=== PATIENT | male | born 1955 | race Caucasian/White ===

== ENCOUNTER 2017-05-06 16:13 | Inpatient (IN) | payer OTHER, MEDICARE ==
[~2017-05-06] VITALS: Ht 185.4 cm; Wt 133.8 kg
[~2017-05-06 16:13] MED LIST: ALDACTONE100 M1 PO; ALDACTONE50 MG PO; B12-METHYL1000 MCG PO; CEFUROXIME AXE500 MG PO; DILAUDID2 M1 PO; EPIPEN 2-PAK1 MG/ML IM; FAMOTIDINE20 MG PO; FERROUS SULFAT325 M3 PO; FOLIC ACID 1 MG PO; FOLIC ACID 1MG (1 MG PO; HYDROMORPHONE HC2 MG PO; MAGNESIUM OXID400 M1 PO; MYRBETRIQ25 MG PO; NADOLOL20 M1 PO; PREDNISONE 20MG20 MG PO; RIFAXIMIN PO; SPIRONOLACTONE25 MG PO; TRAZODONE50 MG PO; VITAMIN D50000 IU PO; XIFAXAN550 M1 PO; ZOLPIDEM TARTRA10 M1 PO
[2017-05-06] MEDS ORDERED: ESCITALOPRAM OX10 MG PO (16:42)
[2017-05-06] MEDS ORDERED: REQUIP1 M1 PO (16:43)
--- NOTE | 2017-05-06 16:43 | ED GENERAL ADULT ---
History of Present Illness General Chief Complaint: General Adult Stated Complaint: WEAKNESS, HYPOTENSION Source: patient Exam Limitations: no limitations Vital Signs & Intake/Output Vital Signs & Intake/Output Vital Signs Date Time Temp Pulse Resp B/P B/P Pulse O2 O2 Flow FiO2 Mean Ox Delivery Rate 05/06 1702 99.2 05/06 1646 96 Room Air 05/06 1633 99.2 76 18 115/57 96 Room Air Allergies Coded Allergies: MDX - PCN (penicillin) (PCN (PENICILLIN)) (Severe, CHILDHOOD REACTION PER PT 06/01) MDX - Bee Venom (Bee Venom) (LOOKS LIKE A REVERSE GOLF BALL PER PT BUT CAN BREATHE 03/25/15) MDX - Cat Hair Extract (CAT HAIR EXTRACT) (WHEEZE, SNEEZE, WATERY, ITCHY SWOLLEN EYES, RUNNY NOSE 03/25/15) MDX - Heparin (RASH 07/18/14) MDX - Citric Acid (From ANTICOAGULANT CPD) (PER PT MD SAID NO BLOOD THINNERS ) MDX - Dextrose (From ANTICOAGULANT CPD) (PER PT MD SAID NO BLOOD THINNERS ) MDX - Mineral, Phosphate (From ANTICOAGULANT CPD) (PER PT MD SAID NO BLOOD THINNERS 10/31/15) MDX - Phosphate (From ANTICOAGULANT CPD) (PER PT MD SAID NO BLOOD THINNERS 10/31) Reconcile Medications Calcium Carbonate/Vitamin D3 (Calcium 500 + D Tablet) 500 MG-400 TABLET 1 TAB PO DAILY UNKNOWN (Reported) Cefuroxime Axetil (Cefuroxime) 500 MG TABLET 500 MG PO BID ANTIBIOTIC ( Reported) Escitalopram Oxalate 10 MG TABLET 10 MG PO DAILY DEPRESSION (Reported) Ferrous Sulfate 325 MG (65 MG IRON) TABLET 325 MG PO DAILY IRON (Reported) Furosemide 40 MG TABLET 40 MG PO BID EDEMA (Reported) 2 PILLS DAILY, ONE PILL NIGHTLY HYDROMORPHONE HCL (Dilaudid) 2 MG TAB 1 TAB PO Q6H PAIN (Reported) Magnesium Oxide 400 MG TABLET 400 MG PO BID SUPPLEMENT (Reported) Methylcobalamin ([id number]-Rojnwa) 1,000 MCG CAP 1,000 MCG PO DAILY VITAMIN ( Reported) Nadolol 20 MG TABLET 20 MG PO DAILY HTN (Reported) Rifaximin (Xifaxan) 550 MG TAB 1 TAB PO BID LIVER (Reported) Ropinirole HCl (Requip) 1 MG TABLET 1 MG PO NIGHTLY RESTLESS LEG (Reported) Spironolactone (Aldactone) 100 MG TAB 1 TAB PO DAILY SWELLING/FLUID RETENTION (Reported) Zolpidem Tartrate 10 MG TAB 10 MG PO AT BEDTIME SLEEP (Reported) Triage Note: BIBA FROM HOME W/ C/O INCREASED RLE PAIN, SWELLING. SOME ABRAIDED AREAS NOTED. INCREASED GENERALIZED WEAKNESS. LOW BP. LOW GRADE TEMP. Triage Nurses Notes Reviewed? yes Onset: Gradual Duration: day(s): (1) Timing: no prior history Injury Environment: home Severity: moderate Severity Numbers: 7 Modifying Factors: Improves With: immobilization. Worsens With: movement. HPI: Patient is a 61-year-old male with history of hypertension presenting to the emergency department complaining of increasing pain, swelling and redness to the right lower extremity. Patient reports symptoms started late last night. Pain is worse with any type of movement or palpation. No fevers or chills. Positive malaise and weakness. According to the visiting nurse redness and swelling has worsened over the past 24 hours. History of blisters on the lower extremities that have popped, it usually provide nonstick dressing and wound care, nursing reports no prior history of cellulitis like this in the past. Patient denies any chest pain palpitations shortness of breath. No nausea or vomiting. Denies taking anything at home to help with symptoms. Patient did take daily Dilaudid this morning at 8 AM with some relief. Past History Travel History Traveled to [place] past 21 day No Medical History Any Pertinent Medical History? see below for history Neurological: NONE EENT: NONE Cardiovascular: hypertension Respiratory: NONE Gastrointestinal: NONE Hepatic: cirrhosis Renal: NONE Musculoskeletal: NONE Psychiatric: NONE Endocrine: NONE Blood Disorders: NONE Cancer(s): NONE BACTERIOLOGIST SOIL/Reproductive: NONE History of MRSA: No History of VRE: Yes History of CDIFF: No Tetanus Vaccine: 10/06/09 Surgical History Surgical History: non-contributory Psychosocial History Who do you live with Patient/Self Services at Home None What is your primary language Colombian Tobacco Use: Never used Family History Hx Contributory? No Review of Systems Review of Systems Constitutional: Reports: malaise. Comments Review of systems: See HPI, All other systems negative. Constitutional, no chills fever or weight loss HEENT: No visual changes no sore throat no congestion Cardiovascular: No chest pain ,palpitation , orthopnea or ankle swelling Skin, no jaundice Respiratory: No dyspnea cough sputum or hemoptysis GI: No nausea no vomiting : No dysuria No hematuria Muscle skeletal: no back pain, no neck pain, Neurologic: No numbness no confusion NO JAMES Psych: No stress anxiety or depression,. Heme/endocrine: No bruising no bleeding no polyuria or polydipsia Immunology: No splenectomy or history of AIDS Physical Exam Physical Exam General Appearance: well developed/nourished, no apparent distress, alert, awake , comfortable, obese Comments: Well-developed well-nourished person in no acute distress HEENT: Pupils equally round and reactive to light and accommodation. Nose is atraumatic. External auditory canal and Tympanic membranes clear. Pharynx normal. No swelling or edema. Neck: Normal inspection Cardiovascular: Regular rate and rhythms no murmurs rubs or gallops, normal JVP Respiratory: Chest nontender. No respiratory distress.breath sounds clear to auscultation bilaterally Abdomen: Soft, obese, nontender nondistended, no appreciable organomegaly. Normal bowel sounds. No ascites, no rebound or guarding. Extremity: Nonpitting edema noted in the lower EXTREMITIES bilaterally, right greater than left. PEDAL pulses are 2+ bilaterally. Able to straight leg raise lower extremity is bilaterally. Nontender to palpation over the right patella. No pain to palpation Neuro: Alert oriented x3, motor sensory normaL Skin:MODERATE ERYTHEMA EXTENDING FROM THE DISTAL LOWER EXT JUST BELOW RIGHT PATELLA. VERY WARM TO PALPATION. OPEN BLISTER ON MID ASPECT OF RIGHT GIBBS APPROX 8-10 CM IN DIAMETER, 2 MORE OPEN BLISTERS APPROX 3 CM IN SIZ JUST BELOW RIGHT PATELLA. Psych: Mood and affect is normal, memory and judgment is normal. Core Measures ACS in differential dx? No CVA/TIA Diagnosis: No Severe Sepsis Present: No Septic Shock Present: No Progress Differential Diagnoses I considered the following diagnoses in my evaluation of the patient: Cellulitis, chronic wounds, SEPSIS,ELECTROLYTE ABNORMALITY, VENOUS STASIS Plan of Care: Orders Procedure Date/time Status Admit to inpatient 05/06 1944 Active Patient Data 05/06 1845 Active BLOOD CULTURE 05/06 1646 Active TROPONIN LEVEL 05/06 1624 Complete COMPREHENSIVE METABOLIC PANEL 05/06 1624 Complete CBC WITHOUT DIFFERENTIAL 05/06 162 Complete EKG 05/06 1624 Active Laboratory Tests 05/06/17 1650: Anion Gap 10, Estimated GFR 51 L, BUN/Creatinine Ratio 25.7 H, Glucose 80, Calcium 9.9, Total Bilirubin 2.4 H, AST 28, ALT 25, Alkaline Phosphatase 61, Troponin I < 0.01, Total Protein 6.1 L, Albumin 3.1 L, Globulin 3.0, Albumin/ Globulin Ratio 1.0 L, CBC w Diff NO MAN DIFF REQ, RBC 3.41 L, MCV 98.2 H, MCH 33.8 H, RDW 14.5, MPV 7.6, Gran % 68.3, Lymphocytes % 21.2, Monocytes % 9.3, Eosinophils % 0.8, Basophils % 0.4, Absolute Granulocytes 4.9, Absolute Lymphocytes 1.5, Absolute Monocytes 0.7 H, Absolute Eosinophils 0.1, Absolute Basophils 0, PUBS MCHC 34.4 Microbiology 05/06 1710 BLOOD: Blood Culture - RECD 05/06 1645 BLOOD: Blood Culture - RECD Diagnostic Imaging: Viewed by Me: Ultrasound. Discussed w/RAD: Ultrasound. Radiology Impression: PATIENT: KIANNA RAMIREZ PRESENT AGE: 61 PATIENT ACCOUNT NO: [id number] : 53 LOCATION: [facility] ORDERING PHYSICIAN: PERI DARLING SERVICE DATE: 05/06/17 EXAM TYPE: US - US-LIMITED ABDOMEN EXAMINATION: US ABDOMEN LIMITED CLINICAL INFORMATION: Elevated bilirubin. COMPARISON: Ultrasound abdomen 05/17/2014. CT of chest abdomen pelvis 02/11/2013. TECHNIQUE: Real-time imaging of the right upper quadrant abdominal viscera. Color Doppler exam. FINDINGS: Limited by body habitus and bowel gas. PANCREAS: Obscured by bowel gas LIVER: Not well visualized due to bowel gas. No focal liver lesion or intrahepatic bile duct dilatation. Patient has history of cirrhosis on prior studies. This is not well delineated with ultrasound today. GALLBLADDER: Not visualized COMMON BILE DUCT: Normal in caliber measuring 0.3 cm in diameter. RIGHT KIDNEY: Normal. No hydronephrosis. No renal calculi or focal parenchymal lesions. The kidney measures 10.6 cm in maximum dimension. FREE FLUID: None. IMPRESSION: Limited by body habitus and bowel gas. Gallbladder not visualized. No bile duct dilatation. DICTATED BY: NEVIN ANDINO MD DATE/TIME DICTATED:05/06/171835 CLOTH COVERER :NUVIA DATE/TIME TRANSCRIBED:05/06/171835 CONFIDENTIAL, DO NOT COPY WITHOUT APPROPRIATE AUTHORIZATION. <Electronically signed in Other Vendor System> , PATIENT: KIANNA RAMIREZ PRESENT AGE: 61 PATIENT ACCOUNT NO: [id number] : 53 LOCATION: [facility] ORDERING PHYSICIAN: PERI DARLING SERVICE DATE: 05/06/17 EXAM TYPE: US - US-DUPLEX VENOUS EXTREM UNI EXAMINATION: US TRIPLEX LOWER EXTREMITY, RIGHT CLINICAL INFORMATION: Right lower extremity edema and pain. COMPARISON: None TECHNIQUE: Color-flow triplex imaging with spectral analysis and compression Doppler were performed on the lower extremity. FINDINGS: Respiratory variation, normal compression and augmented flow are noted throughout the left lower extremity. The visualized common femoral vein, superficial femoral vein, profunda femoral vein, popliteal vein and midcalf peroneal and posterior tibial venous segments show no evidence of deep venous thrombosis. There is no Julien's cyst. IMPRESSION: Normal triplex scan without evidence of deep venous thrombosis involving the lower extremity. DICTATED BY: JENI NEFF MD DATE/TIME DICTATED :05/06/171833 CLOTH COVERER:NUVIA DATE/TIME TRANSCRIBED:05/06/171833 CONFIDENTIAL, DO NOT COPY WITHOUT APPROPRIATE AUTHORIZATION. < Electronically signed in Other Vendor System> SIGNED BY: JENI NEFF MD 05/06/171837 Initial ED EKG: NSR (70 BPM) Comments: Patient afebrile arrival, clearly has right lower leg cellulitis, warm to palpation. Patient started on IV antibiotics, blood cultures were ordered. Patient informed of all laboratory results. Imaging result is negative for DVT. No ductal dilation noted on ultrasound of the abdomen despite elevated bilirubin. We will trend with repeat labs. Patient will be admitted for cellulitis. Departure Departure Time of Disposition: 1842 Disposition: STILL A PATIENT Condition: Stable Clinical Impression Primary Impression: Cellulitis Qualifiers: Site of cellulitis: extremity Site of cellulitis of extremity: lower extremity Laterality: right Qualified Code: L03.115 - Cellulitis of right lower limb Referrals: BRINDA ROD MD (PCP/Family) Departure Forms: Customer Survey General Discharge Information Admission Note Spoke With: BRINDA ROD MD Documentation of Exam: Documentation of any treatments & extenuating circumstances including Concerns Regarding Discharge (functional status, medication knowledge or non-compliance, living conditions, etc.) that warrant an admission rather than observation: PT REQUIRING IV ABX, IV FLUIDS, PENDING US RESULTS, BLOOD CULTURES TO RETURN, WOUND CONSULT. D/C AT THIS TIME WOULD BE MEDICALLY HARMFUL. Critical Care Note Critical Care Note Critical Care Time: non-applicable
[2017-05-06] MEDS ORDERED: FUROSEMIDE40 M1 PO (16:44)
[2017-05-06] MEDS ORDERED: CALCIUM 500 +1 EAC5 PO (16:45)
[2017-05-06 16:59] LABS: ABSOLUTE BASOPHIL COUNT 0 /CUMM (0.0-0.2); ABSOLUTE EOSINOPHIL COUNT 0.1 /CUMM (0.0-0.7); ABSOLUTE GRANULOCYTE CT 4.9 /CUMM (1.4-6.5); ABSOLUTE LYMPH COUNT 1.5 /CUMM (1.2-3.4); ABSOLUTE MONOCYTE COUNT 0.7 /CUMM (0.10-0.60); BASOPHIL % 0.4 % (0.0-2.0); EOSINOPHIL % 0.8 % (0-5); GRANULOCYTE % 68.3 % (42.2-75.2); HEMATOCRIT 33.5 % (42-52); MEAN CORPUSCULAR HGB 33.8 PG (27.0-31.0); MEAN CORPUSCULAR HGB CONC 34.4 G/DL (33.0-37.0); MEAN CORPUSCULAR VOLUME 98.2 FL (80.0-94.0); MEAN PLATELET VOLUME 7.6 FL (7.4-10.4); PLATELET COUNT 124 /CUMM (130-400); RBC DISTRIBUTION WIDTH 14.5 % (11.5-14.5); RED BLOOD CELL CT 3.41 /CUMM (4.70-6.10); WHITE BLOOD CELL COUNT 7.2 /CUMM (4.8-10.8)
--- NOTE | 2017-05-06 18:38 | ULTRASOUND REPORT ---
EXAMINATION: US TRIPLEX LOWER EXTREMITY, RIGHT CLINICAL INFORMATION: Right lower extremity edema and pain. COMPARISON: None TECHNIQUE: Color-flow triplex imaging with spectral analysis and compression Doppler were performed on the lower extremity. FINDINGS: Respiratory variation, normal compression and augmented flow are noted throughout the left lower extremity. The visualized common femoral vein, superficial femoral vein, profunda femoral vein, popliteal vein and midcalf peroneal and posterior tibial venous segments show no evidence of deep venous thrombosis. There is no Julien's cyst. IMPRESSION: Normal triplex scan without evidence of deep venous thrombosis involving the lower extremity.
--- NOTE | 2017-05-06 18:44 | ULTRASOUND REPORT ---
EXAMINATION: US ABDOMEN LIMITED CLINICAL INFORMATION: Elevated bilirubin. COMPARISON: Ultrasound abdomen 05/17/2014. CT of chest abdomen pelvis 02/11/2013. TECHNIQUE: Real-time imaging of the right upper quadrant abdominal viscera. Color Doppler exam. FINDINGS: Limited by body habitus and bowel gas. PANCREAS: Obscured by bowel gas LIVER: Not well visualized due to bowel gas. No focal liver lesion or intrahepatic bile duct dilatation. Patient has history of cirrhosis on prior studies. This is not well delineated with ultrasound today. GALLBLADDER: Not visualized COMMON BILE DUCT: Normal in caliber measuring 0.3 cm in diameter. RIGHT KIDNEY: Normal. No hydronephrosis. No renal calculi or focal parenchymal lesions. The kidney measures 10.6 cm in maximum dimension. FREE FLUID: None. IMPRESSION: Limited by body habitus and bowel gas. Gallbladder not visualized. No bile duct dilatation.
--- NOTE | 2017-05-06 20:01 | History & Physical ---
JIM BLANKENSHIP,JENNA 05/06/17 2000: General Information and HPI MD Statement: I have seen and personally examined KIANNA RAMIREZ and documented this H&P. The patient is a 61 year old M who presented with a patient stated chief complaint of [cellulitis]. 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 coli infections. He presented to the ED, at the recommendation of his visiting nurse, due to worsening cellulitis of his R lower leg in the presence of a large ulcer. For the past month he reports worsening swelling and seepage from the R lower leg. He claims that has had chronic issues of poor circulations and blisters leading to small wounds on the R leg since 2007 when he had an e. coli infection of his R knee. He has had visiting nurses come to his home for the past 2-3 weeks for wound care, and within the last week he noted that several smaller blisters coalesced, and ruptured on his anterior lower leg. The nurses had been dressing the wound with xeroform macrina until yesterday when they switched to silver containing dressings. This wound has been draining fluid and blood for one week, with spreading of surrounding redness. The pt reports that his leg is normally discolored due to poor circulation, but the redness and warmth of the skin is new. The redness, and drainage has become significantly worse within the last 24 hours which prompted the nurses to recommend he come to the ED. The pt reports worsening pain in the R leg, with a minimum of 5/10 that goes to 10/10 intermitently. The pain is reduced, but not fully allevieted by immobilization, and elevation, and it is exacerbated by movement or palpation. The pt took dilaudid this morning for pain, it helped but did not relieve the pain. The pt reports having a headache, and malaise for the past few days. He denies fever, chills, chest apain, changes in vision, or SOB. Allergies/Medications Allergies: Coded Allergies: bee venom protein (honey bee) (Severe, SEVERE HIVES 05/06/17) heparin (Severe, TONGUE SWELLED 05/06/17) cat dander (Intermediate, ITCH, WHEEZE, SNEEZE, SWOLLEN EYES, RUNNY NOSE ) Penicillins (CHILDHOOD REACTION PER PT 05/06/17) Uncoded Allergies: BLOOD THINNERS (PER PT MD ROD SAID NO BLOOD THINNERS 05/06/17) Compliance With Home Meds: GOOD Past History Travel History Traveled to [place] past 21 day No Medical History Neurological: NONE EENT: NONE Cardiovascular: hypertension Respiratory: NONE Gastrointestinal: NONE Hepatic: cirrhosis Renal: NONE Musculoskeletal: NONE Psychiatric: NONE Endocrine: NONE Blood Disorders: NONE Cancer(s): NONE COMMERCIAL ANALYST/Reproductive: NONE History of MRSA: No History of VRE: Yes History of CDIFF: No Tetanus Vaccine: 10/06/09 Surgical History Surgical History: non-contributory Past Family/Social History Family History Relations & Conditions if any Relation not specified for: *No pertinent family history Psychosocial History Where do you live? Home Services at Home: None, visiting nursing for wound care past 3 weeks Primary Language: Mauritanian Smoking Status: Never Smoked ETOH Use: denies use, gave up alcohol 2 years ago Illicit Drug Use: denies illicit drug use Living Will? yes Functional Ability ADLs Independent: dressing, eating, toileting, bathing. Ambulation: cane, walker IADLs Independent: shopping, housework, finances, food prep, telephone, transportation , medication admin. Review of Systems Review of Systems Constitutional: Reports: malaise. Denies: chills, diaphoresis, fever, weakness, unexplained weight loss. EENTM: Denies: blurred vision, double vision, visual changes, eye pain, nasal congestion, throat pain. Cardiovascular: Reports: peripheral edema. Denies: chest pain, palpitations. Respiratory: Denies: cough, short of breath, wheezing. GI: Denies: bloating, constipation, diarrhea, bloody stool. Genitourinary: Reports: frequency (frequency due to lasix), nocturia (frequency due to lasix). Denies: dysuria. Musculoskeletal: Denies: back pain. Skin: Reports: erythema, lesions. Neurological/Psychological: Reports: headache, numbness. Denies: confusion, tingling. Hematologic/Endocrine: Reports: polyuria (high dose lasix). Exam & Diagnostic Data Last 24 Hrs of Vital Signs/I&O Vital Signs Date Time Temp Pulse Resp B/P B/P Pulse O2 O2 Flow FiO2 Mean Ox Delivery Rate 05/069 98.1 63 20 130/76 99 05/06 2100 97.5 05/06 2058 97.5 63 20 133/67 99 Room Air 05/06 2053 Room Air 05/06 1702 99.2 05/06 1646 96 Room Air 05/06 1633 99.2 76 18 115/57 96 Room Air Physical Exam General Appearance Alert, Oriented X3, Cooperative, Mild Distress, Moderate Distress (intermitent spikes in pain) Skin 2 ulcers with surrounding erythema on the R leg. See extremities for description Skin Temp/Moisture Exam: Warm/Dry Sepsis Skin Exam (color): Normal for Ethnicity HEENT Atraumatic, PERRLA, EOMI, Mucous Membr. moist/pink Neck Supple, No JVD, +2 Carotid Pulse wo Bruit, No LAD Lymphatic Cervical nl Cardiovascular Regular Rate, Normal S1, Normal S2, systolic ejection murmor 2/6 Lungs Clear to Auscultation, Normal Air Movement Abdomen Normal Bowel Sounds, Soft, obese, TTP in the RUQ, hx of cirrhosis Neurological Normal Speech, Strength at 5/5 X4 Ext, Cranial Nerves 3-12 NL, complete numbness of the R anterior lower leg distal to the knee. Posterior aspect has diminished sensation about 10-15 cm below the R knee. Could still feel pain in the area of the wound 10-15 cm below the knee Extremities No Clubbing, No Cyanosis, swelling of the R leg, 2x2 cm ulcer over the R patella, draining serous fluid, no surrounding erythema, 11x7 cm ulcer on the lower leg, draining serous fluid with some granulation tissue present around the boarder. Large area of erythema surrounding the ulcer extinding distally to the ankle and proximally to below the knee. Area is warm. , hyperpigmentated skin on the lower extremities b/l on the shins. pt claims this is due to poor circulation Vascular dorsail pedis pulse weak on the R, but present, normal capillary refill Sepsis Peripheral Pulse Location: Radial Sepsis Peripheral Pulse Exam: Normal Sepsis Cap Refill Exam: <2 Sec Diagnostic Data Other Results US TRIPLEX LOWER EXTREMITY, RIGHT IMPRESSION: Normal triplex scan without evidence of deep venous thrombosis involving the lower extremity. There is no Julien's cyst. US ABDOMEN LIMITED IMPRESSION: Limited by body habitus and bowel gas. Gallbladder not visualized. No bile duct dilatation. 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 coli infections. He presented to the ED, due to worsening cellulitis of his R lower leg in the presence of a large ulcer. He claims that has had chronic issues of poor circulations and blisters leading to small wounds on the R leg since 2007 when he had an e. coli infection of his R knee. Within the last week he noted that several smaller blisters coalesced, and ruptured on his anterior lower leg. The pain and erythema has significantly increased in the past 24 hours. The pt recieved IV clindamycin in the ED #R lower extremity cellulitis US has ruled out DVT in R leg - admit to gen med - c/w IV clindamycin (pt alleric to pcn) - f/u cultures for guidance with abx - elevate R leg - wound care consult to be placed in AM - Keep pain well controlled, currenlty Dilaudid PRN #Acute Kidney injury, possibly due to dehydration Cr:1.4, pt claims that he had has not drank much water in the past 24 hours, is on Lasix BID at home. Pt reports urinary frequency. - IVF rehydration - F/U UA and urine electrolytes - hold home lasix and spironolactone - avoid nephrotoxic drugs #history of htn - c/w Metoprolol. (converted from home medication Nadolol) - lasix and spironolactone being held due to SRINIVAS, monitor BP - Heart healthy diet #DVT prophylaxis pt has allergy to heparin. due to infection and ulcer on the RLE cannot use B/L ALPs. US showed no DVT in RLE - ALP on L leg only #Code status - Full Code As Ranked By This Provider Problem List: 1. Cellulitis Qualifiers Site of cellulitis: extremity Site of cellulitis of extremity: lower extremity Laterality: right Qualified Code: L03.115 - Cellulitis of right lower limb 2. Dehydration Core Measures/Miscellaneous Acute Coronary Syndrome ACS Diagnosis: No Cerebrovascular Accident CVA/TIA Diagnosis: No Congestive Heart Failure CHF Diagnosis: No VTE (View Protocol) VTE Risk Factors: Age > 40, Obesity No [facility] VTE prophylaxis d/t: LE Injury, current No VTE Pharm Prophylaxis d/t: Allergy exists VTE Diagnosis: No VTE Type: NONE VTE Confirmed by (Test): NONE Sepsis (View Protocol) Severe Sepsis Present: No Septic Shock Septic Shock Present: No Miscellaneous Documentation Attending Case Discussed With: BRINDA ROD MD Primary Care Physician: BRINDA ROD MD Level of Patient Care: General Medicine KUNAL HERRERA MD 05/06/17 0994: General Information and HPI Allergies/Medications Home Med list Calcium Carbonate/Vitamin D3 (Calcium 500 + D Tablet) 500 MG-400 TABLET 1 TAB PO DAILY UNKNOWN (Reported) Escitalopram Oxalate 10 MG TABLET 10 MG PO DAILY DEPRESSION (Reported) Ferrous Sulfate 325 MG (65 MG IRON) TABLET 1 TAB PO DAILY SUPPLEMENT ( Reported) Furosemide 40 MG TABLET 40 MG PO BID EDEMA (Reported) 2 PILLS DAILY, ONE PILL NIGHTLY Hydromorphone HCl (Dilaudid) 2 MG TABLET 1 TAB PO Q6PRN PRN SEVERE PAIN ( Reported) Magnesium Oxide 400 MG TABLET 1 TAB PO BID SUPPLEMENT (Reported) Methylcobalamin (I70-Ucuwrt) 1,000 MCG CAP 1,000 MCG PO DAILY VITAMIN ( Reported) Nadolol 20 MG TABLET 1 TAB PO DAILY HTN (Reported) Rifaximin (Xifaxan) 550 MG TABLET 1 TAB PO BID GI (Reported) Ropinirole HCl (Requip) 1 MG TABLET 1 MG PO NIGHTLY RESTLESS LEG (Reported) Spironolactone (Aldactone) 100 MG TABLET 1 TAB PO DAILY HTN, CIRRHOSIS ( Reported) Zolpidem Tartrate 10 MG TABLET 1 TAB PO QPMP mental health (Reported) Core Measures/Miscellaneous Acute Coronary Syndrome ACS Diagnosis: No Cerebrovascular Accident CVA/TIA Diagnosis: No Congestive Heart Failure CHF Diagnosis: No VTE (View Protocol) VTE Risk Factors: Age > 40, Obesity [facility] prophylaxis d/t: LE Injury, current No VTE Pharm Prophylaxis d/t: Allergy exists VTE Diagnosis: No VTE Type: NONE VTE Confirmed by (Test): NONE Comment: pt is to go for alps only LLE Sepsis (View Protocol) Severe Sepsis Present: No Septic Shock Septic Shock Present: No Miscellaneous Documentation Attending Case Discussed With: BRINDA ROD MD Primary Care Physician: BRINDA ROD MD Patient sees these Specialists Wound care Level of Patient Care: General Medicine Resident Review Statement Resident Statement: examined this patient, discussed with project intern, agreed with project intern, discussed with family, reviewed EMR data (avail), discussed with nursing , reviewed images Other Findings: 61-year-old male with past medical history of hypertension, enterococcus infective endocarditis status post Aortic valve (bovine) replacement, 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 His right lower extremity started swelling since one month, was having some "seepage", and blisters that were "bloody or clear", for which he was being treated at home with a visiting nurse and antibiotic, but last week he had a Dejesus blister over his right leg that ruptured, leaving a big ulcer, which made him come to the emergency department. He denies any fever , chills, chest pain, shortness of breath, sick contacts, long travel history, history of cancer, trauma. Of note, he has a documented allergy to heparin. In the emergency department: His blood pressure was slightly on the lower side with 115/57, but rest of his vitals were stable. The patient was in mild distress due to pain, and physical examination revealed one large ulceration around 11 cm x 7 cm over lower part of right leg, and to open blisters around 3 cm in diameter just below right knee. He also has marked erythema over his right lower extremity. Marked sensory deficit below knee mostly over anterior leg and foot b/l. Distal pulses were weak, but DIRECT SERVICE PROFESSIONAL<2 sec. Cardiac murmur heard, decreased breath sounds over bilateral lung shahid. Patient had received 1 dose of IV clindamycin in the ED. Patient is currently being admitted in the general floor for management of following issues: # Right lower extremity cellulitis Clinical examination is very obvious for right lower extremity cellulitis. Doppler ultrasound has ruled out possibility of DVT as well as ruptured Julien's cyst (he does not have any cyst). * Continue with IV clindamycin at this time, as the patient is allergic to penicillin * Follow-up blood cultures and adjust antibiotics accordingly * Keep right lower extremity elevated * Call wound care consultation in AM * Adequate pain management. Of note, patient takes Dilaudid at home. # Acute kidney injury Patient's baseline creatinine seems to be 1.0 which currently is 1.4, diagnostic of SRINIVAS. Cause of HPI is not clear at this point, one of which could be dehydration. Of note patient takes Lasix twice daily, the dose of which was recently increased to 60 mg 2 times a day. * IV fluid running at 100 mL per hour * Urinalysis and urine lites have been ordered. Need to follow-up on that * Lasix and spironolactone has been held, given his acute kidney injury * Will avoid other nephrotoxic drugs * Patient doesn't seem to have any obstruction #Hypertension Patient's home medication of Nadolol 20mg has been substituted with metoprolol 25 mg twice a day. Of note, spironolactone and Lasix is on hold given his renal condition. #Continuing rest of his home meds, except for Zolpidem, which he does not take currently. # DVT prophylaxis issue: Of note, DVT prophylaxis has been ordered as mechanical only, but the patient has open wound on his right lower extremity. DVT of bilateral lower extremities has been ruled out by Doppler study though. The patient is allergic to heparin so chemical prophylaxis is not an option currently. Also, patient has acute kidney injury making Lovenox a bad choice. #Diet: Heart healthy #Code status: Full code
[2017-05-06 22:09] VITALS: BP 130/76
[2017-05-07 07:02] VITALS: BP 122/60
--- NOTE | 2017-05-07 07:13 | Admission Certification ---
Admission Certification Certification Statement - As attending physician, I certify that at the time of - admission, based on clinical presentation, severity of - symptoms, need for further diagnostic testing and - therapeutic interventions, and risk of adverse outcomes - without in-hospital treatment, in my clinical assessment, - this patient requires an acute hospital stay for a minimum - of two nights or longer. I have also considered psychsocial - factors such as support system, advanced age, financial - issues, cognitive issues, and failed out-patient treatments, - past re-admission history, safety of patient, and lack of - compliance as applicable. Specific rationale supporting this admission is: Admission for cellulitis of the right leg which is progressively getting worse not responding to oral antibiotics admitted for IV antibiotics.
--- NOTE | 2017-05-07 07:20 | PN- Att Addend ---
Attending Addendum Attending Brief Note Attending admitting note. 61-year-old gentleman well-known to me for many years admitted for chronic swelling and pain with evidence of infection in the right lower extremity. Currently being treated by wound nurse with local care and oral antibiotics and not responding. The wound is progressively getting worse and decrease with a decreased amount of pain. He has no fever no chills. Is a history of cirrhosis of the liver with chronic pancytopenia status post aortic valve replacement for and enterococcal endocarditis history of some hematoma. Status post bilateral total knee replacements Intake & Output 05/07 0800 05/07 0000 05/06 1600 Intake Total 360 320 Output Total 600 Balance -240 320 Intake, IV 200 Intake, Oral 360 120 Number 1 Bowel Movements Output, Urine 600 Patient 295 lb Weight Weight Standing Scale Measurement Method Current Medications Sig/Clifford Start time Last Medication Dose Route Stop Time Status Admin Acetaminophen 650 MG Q6P PRN 05/06 2145 AC PO Acetaminophen 1,000 MG ONCE ONE 05/06 170 DC 05/06 N/A 1 UNIT IV 05/06 1714 1702 Acetaminophen/ 1 TAB Q6P PRN 05/06 2145 AC Hydrocodone Bitart PO Calcium/Vitamin D 500 MG DAILY 05/06 2230 AC 05/06 PO 233 Clindamycin 600 MG IQ8 05/07 0000 AC 05/07 Dextrose/Water 50 ML IV 0043 Clindamycin 600 MG ONCE ONE 05/06 170 DC 05/06 Dextrose/Water 50 ML IV 05/06 1729 1719 Cyanocobalamin 1,000 MCG DAILY 05/06 2230 AC 05/06 PO 233 Escitalopram Oxalate 10 MG DAILY 05/06 2230 AC 05/06 PO 233 Ferrous Sulfate 325 MG DAILY 05/07 1000 AC PO Heparin Sodium 5,000 UNIT Q8 05/06 223 DC (Porcine) SC Hydromorphone HCl 0.5 MG Q4 PRN 05/07 0111 AC IV Hydromorphone HCl 0.5 MG Q4 05/06 2200 DC 05/06 IV 215 Hydromorphone HCl 0 .STK-MED ONE 05/06 2157 DC .ROUTE Magnesium Oxide 400 MG BID 05/06 2200 AC 05/06 PO 233 Metoprolol Tartrate 25 MG BID 05/06 2230 AC 05/06 PO 233 Rifaximin 550 MG BID 05/06 2230 AC 05/06 PO 2337 Ropinirole HCl 1 MG 05/06 AC 05/06 PO 2337 Sodium Chloride 1,000 ML .Q10H 05/06 2145 AC 05/07 IV 05/07 1744 0707 Laboratory Tests 05/06 05/06 05/06 2335 2335 2250 Chemistry Ammonia (9 - 30 umol/L) 27 Urines Urinalysis LIGHT H Urine Color (YEL,AMB,STR) YEL Urine Clarity (CLEAR) HAZY H Urine pH (5.0 - 8.0) 7.0 Ur Specific [place] (1.001 - 1.035) 1.010 Urine Protein (NEG,<30 MG/DL) NEG Urine Ketones (NEG) NEG Urine Nitrite (NEG) POS H Urine Bilirubin (NEG) NEG Urine Urobilinogen (0.1 - 1.0 EU/dl) 2.0 H Ur Leukocyte Esterase (NEG) MOD H Ur Microscopic SEDIMENT EXAMINED Urine RBC (0 - 5 /HPF) RARE Urine WBC (0 - 2 /HPF) 15-25 H Ur Epithelial Cells (NONE,FEW) RARE Urine Bacteria (NEG/NONE) MANY H Urine Hemoglobin (NEG) TRACE-INTACT H Ur Random Creatinine (mg/dL) 59.3 Ur Random Sodium (30 - 90 mmol/L) 107 H Ur Random Potassium (mmol/L) 16.6 Fraction Sodium Excret (<1% %) 1.9 H Urine Glucose (N MG/DL) NEG 05/06 1650 Chemistry Sodium (137 - 145 mmol/L) 133 L Potassium (3.5 - 5.1 mmol/L) 4.5 Chloride (98 - 107 mmol/L) 102 Carbon Dioxide (22 - 30 mmol/L) 21 L Anion Gap (5 - 16) 10 BUN (9 - 20 mg/dL) 36 H Creatinine (0.7 - 1.2 mg/dL) 1.4 H Estimated GFR (>60 ml/min) 51 L BUN/Creatinine Ratio (7 - 25 %) 25.7 H Glucose (65 - 99 mg/dL) 80 Calcium (8.4 - 10.2 mg/dL) 9.9 Total Bilirubin (0.2 - 1.3 mg/dL) 2.4 H AST (17 - 59 U/L) 28 ALT (21 - 72 U/L) 25 Alkaline Phosphatase (< 127 U/L) 61 Troponin I (<0.11 ng/ml) < 0.01 Total Protein (6.3 - 8.2 g/dL) 6.1 L Albumin (3.5 - 5.0 g/dL) 3.1 L Globulin (1.9 - 4.2 gm/dL) 3.0 Albumin/Globulin Ratio (1.1 - 2.2 %) 1.0 L Hematology CBC w Diff NO MAN DIFF REQ WBC (4.8 - 10.8 /CUMM) 7.2 RBC (4.70 - 6.10 /CUMM) 3.41 L Hgb (14.0 - 18.0 G/DL) 11.5 L Hct (42 - 52 %) 33.5 L MCV (80.0 - 94.0 FL) 98.2 H MCH (27.0 - 31.0 PG) 33.8 H RDW (11.5 - 14.5 %) 14.5 Plt Count (130 - 400 /CUMM) 124 L MPV (7.4 - 10.4 FL) 7.6 Gran % (42.2 - 75.2 %) 68.3 Lymphocytes % (20.5 - 51.1 %) 21.2 Monocytes % (1.7 - 9.3 %) 9.3 Eosinophils % (0 - 5 %) 0.8 Basophils % (0.0 - 2.0 %) 0.4 Absolute Granulocytes (1.4 - 6.5 /CUMM) 4.9 Absolute Lymphocytes (1.2 - 3.4 /CUMM) 1.5 Absolute Monocytes (0.10 - 0.60 /CUMM) 0.7 H Absolute Eosinophils (0.0 - 0.7 /CUMM) 0.1 Absolute Basophils (0.0 - 0.2 /CUMM) 0 PUBS MCHC (33.0 - 37.0 G/DL) 34.4 Microbiology Date/Time Procedure - Status Source Growth 05/06 2335 Urine Culture - RECD URINE ROUT 05/06 171 Blood Culture - RECD BLOOD 05/06 1645 Blood Culture - RECD BLOOD Vital Signs Date Time Temp Pulse Resp B/P B/P Pulse O2 O2 Flow FiO2 Mean Ox Delivery Rate 05/07 07 98.7 64 18 122/60 95 05/06 2338 89 140/76 05/06 2209 98.1 63 20 130/76 99 07/20 2100 97.5 05/06 2058 97.5 63 20 133/67 99 Room Air 05/06 2053 Room Air 05/06 1702 99.2 05/06 1646 96 Room Air 05/06 1633 99.2 76 18 115/57 96 Room Air Intake & Output 05/07 0800 05/07 0000 05/06 1600 Intake Total 360 320 Output Total 600 Balance -240 320 Intake, IV 200 Intake, Oral 360 120 Number 1 Bowel Movements Output, Urine 600 Patient 295 lb Weight Weight Standing Scale Measurement Method On examination patient is awake alert oriented 3 comfortable lying in bed. Neck is supple JVD is not raised mucous membrane is moist S1-S2 is normal Lungs shows diminished breath sound both bases abdomen is soft globular nontender bowel sounds are present Extremities shows bilateral peripheral neuropathy. Ulcers 2 ulcers on the right lower extremity with surrounding erythema with edema and some serous drainage. One of the ulcers is 2 x 2 centimeters over the right patella 1 is 11 x 7 cm over the medial aspect of the lower leg. Pedal pulses 2+ bilateral Assessment #1 is cellulitis of the right lower extremities ultrasound was done which was negative patient was started on IV clindamycin as she is allergic to penicillin will obtain blood cultures and also get an infectious disease consult and also wound consult. #2 acute kidney injury is most likely secondary to dehydration as patient is on Lasix will hold off the Lasix for the time being keep the leg elevated. Right leg with compression dressings. Continue blood medication for hypertension also continue with the continue his spironolactone. Due to prophylaxis
--- NOTE | 2017-05-07 08:23 | PN- Housestaff ---
Subjective Follow-up For: RLE Cellulitis SRINIVAS Subjective: I saw and examined the patient today. Pt states that he has had worsening of his right leg over the past few days. Stated he had severe pain yesterday which prompted his VNA to come assess his leg and pt was sent over to the ED. Today, pt states he continues to have pain at the site of the superficial ulcer. Pt states he also has a sharp shooting pain in his hip that comes and goes. Pt denies fever/chills, n/v/d/c, abdominal pain, SOB/chest pain/palpitations, dysuria/hematuria/frequency/urgency. Pt states he has had muscle and joint pain over the past few days. Pt is worried about his knee replacement. States he has had multiple knee replacements for his left knee due to infection. His last knee replacement was in 2015. Pt had no acute events overnight. Review of Systems Constitutional: Denies: see HPI. Cardiovascular: Denies: see HPI. Respiratory: Denies: see HPI. Gastrointestinal: Denies: see HPI. Genitourinary: Denies: see HPI. Musculoskeletal: Reports: see HPI. Objective Last 24 Hrs of Vital Signs/I&O Vital Signs Date Time Temp Pulse Resp B/P B/P Pulse O2 O2 Flow FiO2 Mean Ox Delivery Rate 05/07 1417 98.4 70 18 122/70 97 05/07 0958 88 136/80 05/07 0702 98.7 64 18 122/60 95 05/06 2338 89 140/76 05/06 2209 98.1 63 20 130/76 99 05/06 2100 97.5 05/06 2058 97.5 63 20 133/67 99 Room Air 05/06 2053 Room Air Intake & Output 05/07 1600 05/07 0800 05/07 0000 Intake Total 1200 360 320 Output Total 300 600 Balance 900 -240 320 Intake, IV 700 200 Intake, Oral 500 360 120 Number 1 Bowel Movements Output, Urine 300 600 Patient 295 lb Weight Weight Standing Scale Measurement Method Physical Exam General Appearance: Alert, Oriented X3, No Acute Distress Skin: RLE from ankle to slightly below knee is erythematous, warm to touch, tender to palpation, there is a superficial ulcer (12x7) over the R tibia HEENT: Atraumatic, PERRLA, EOMI, Mucous Membr. 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 Pt admitted to general medicine for management of the followin. Right lower extremity cellulitis - U/S of Right Leg: r/o DVT - Pt started on IV clindamycin as he is allergic to penicillin (had angioedema) but has been desensitized to penicillin in the past. - ID consulted. Appreciate recommendations: - f/u cultures - elevate R leg - wound care consult placed with Dr. So - control pain - continue to monitor temp and WBC (both normal today) 2. Acute Kidney Injury, possibly due to dehydration Cr:1.4, pt claims that he had has not drank much water in the past 24 hours, is on Lasix BID at home. Pt reports urinary frequency. - IVF rehydration - F/U UA and urine electrolytes - hold home lasix and spironolactone - avoid nephrotoxic drugs 3. history of htn - c/w Metoprolol. (converted from home medication Nadolol) - lasix and spironolactone being held due to SRINIVAS, monitor BP - Heart healthy diet 4. Liver Cirrhosis 2/2 to Alcoholism (stopped drinking 2 years ago) - has thrombocytopenia - MELD: 18 based on previous INR (from 2016) - obtain LFTs tomorrow - on Rifaximin DVT prophylaxis: Pt has allergy to heparin. ALP on left leg only. Diet: Regular Code status: Full Code Problem List: 1. Alcoholic cirrhosis 2. Cellulitis 3. Acute kidney failure Pain Ratin Pain Location: Right leg Pain Goal: Pain 4 or less Pain Plan: dilaudid Tomorrow's Labs & Rationales: cbc bep inr lfts
[2017-05-07 09:15] LABS: ABSOLUTE BASOPHIL COUNT 0 /CUMM (0.0-0.2); ABSOLUTE EOSINOPHIL COUNT 0.1 /CUMM (0.0-0.7); ABSOLUTE GRANULOCYTE CT 4.4 /CUMM (1.4-6.5); ABSOLUTE LYMPH COUNT 0.8 /CUMM (1.2-3.4); ABSOLUTE MONOCYTE COUNT 0.5 /CUMM (0.10-0.60); BASOPHIL % 0.4 % (0.0-2.0); EOSINOPHIL % 1.1 % (0-5); HEMATOCRIT 34.7 % (42-52); MEAN CORPUSCULAR HGB 33.8 PG (27.0-31.0); MEAN CORPUSCULAR HGB CONC 34.2 G/DL (33.0-37.0); MEAN CORPUSCULAR VOLUME 98.8 FL (80.0-94.0); MEAN PLATELET VOLUME 7.6 FL (7.4-10.4); PLATELET COUNT 106 /CUMM (130-400); RBC DISTRIBUTION WIDTH 14.4 % (11.5-14.5); RED BLOOD CELL CT 3.51 /CUMM (4.70-6.10); WHITE BLOOD CELL COUNT 5.7 /CUMM (4.8-10.8)
[2017-05-07 14:17] VITALS: BP 122/70
--- NOTE | 2017-05-07 17:14 | Cons- Infect Disease ---
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 Vsiting nurse recommended ED visit due to worsening redness and pain involving R LE. For the past month he reports worsening swelling and seepage from the R lower leg. Patient reports that his leg is normally discolored due to poor circulation , but the redness and warmth of the skin is new. 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 He reports worsening pain in the R leg, worse with movement or palpation. C/O headache, and malaise for the past few days. He denies fever, chills, chest apain, cough, or SOB. Allergies/Medications Allergies: Coded Allergies: bee venom protein (honey bee) (Severe, SEVERE HIVES 05/06/17) heparin (Severe, TONGUE SWELLED 05/06/17) cat dander (Intermediate, ITCH, WHEEZE, SNEEZE, SWOLLEN EYES, RUNNY NOSE ) Penicillins (CHILDHOOD REACTION PER PT 05/06/17) Uncoded Allergies: BLOOD THINNERS (PER PT MD ROD SAID NO BLOOD THINNERS 05/06/17) Home Med List: Calcium Carbonate/Vitamin D3 (Calcium 500 + D Tablet) 500 MG-400 TABLET 1 TAB PO DAILY UNKNOWN (Reported) Escitalopram Oxalate 10 MG TABLET 10 MG PO DAILY DEPRESSION (Reported) Ferrous Sulfate 325 MG (65 MG IRON) TABLET 1 TAB PO DAILY SUPPLEMENT ( Reported) Furosemide 40 MG TABLET 40 MG PO BID EDEMA (Reported) 2 PILLS DAILY, ONE PILL NIGHTLY Hydromorphone HCl (Dilaudid) 2 MG TABLET 1 TAB PO Q6PRN PRN SEVERE PAIN ( Reported) Magnesium Oxide 400 MG TABLET 1 TAB PO BID SUPPLEMENT (Reported) Methylcobalamin (X57-Pylexo) 1,000 MCG CAP 1,000 MCG PO DAILY VITAMIN ( Reported) Nadolol 20 MG TABLET 1 TAB PO DAILY HTN (Reported) Rifaximin (Xifaxan) 550 MG TABLET 1 TAB PO BID GI (Reported) Ropinirole HCl (Requip) 1 MG TABLET 1 MG PO NIGHTLY RESTLESS LEG (Reported) Spironolactone (Aldactone) 100 MG TABLET 1 TAB PO DAILY HTN, CIRRHOSIS ( Reported) Zolpidem Tartrate 10 MG TABLET 1 TAB PO QPMP mental health (Reported) Current Medications: Current Medications Sig/Clifford Start time Last Medication Dose Route Stop Time Status Admin Acetaminophen 650 MG Q6P PRN 05/06 214 AC PO Acetaminophen 1,000 MG ONCE ONE 05/06 170 DC 05/06 N/A 1 UNIT IV 05/06 1714 1702 Acetaminophen/ 1 TAB Q6P PRN 05/06 2145 AC 05/07 Hydrocodone Bitart PO 0957 Calcium/Vitamin D 500 MG DAILY 05/06 223 AC 05/07 PO 0958 Clindamycin 600 MG IQ8 05/07 0000 AC 05/07 Dextrose/Water 50 ML IV 1607 Clindamycin 600 MG ONCE ONE 05/06 170 DC 05/06 Dextrose/Water 50 ML IV 05/06 1729 1719 Cyanocobalamin 1,000 MCG DAILY 05/06 2230 AC 05/07 PO 0958 Escitalopram Oxalate 10 MG DAILY 05/06 223 AC 05/07 PO 0958 Ferrous Sulfate 325 MG DAILY 05/07 1000 AC 05/07 PO 0957 Heparin Sodium 5,000 UNIT Q8 05/06 223 DC (Porcine) SC Hydromorphone HCl 0.5 MG Q4 PRN 05/07 0111 AC 05/07 IV 1607 Hydromorphone HCl 0.5 MG Q4 05/06 220 DC 05/06 IV 2152 Hydromorphone HCl 0 .STK-MED ONE 05/06 2157 DC .ROUTE Magnesium Oxide 400 MG BID 05/06 2200 AC 05/07 PO 0958 Metoprolol Tartrate 25 MG BID 05/06 223 AC 05/07 PO 0958 Morphine Sulfate 2 MG ONCE ONE 05/07 1200 DC 05/07 IV 05/07 1201 1208 Rifaximin 550 MG BID 05/06 2230 AC 05/07 PO 1004 Ropinirole HCl 1 MG 22005/06 AC 05/06 PO 2337 Sodium Chloride 1,000 ML .Q10H 05/06 2145 AC 05/07 IV 05/07 1744 0707 Spironolactone 100 MG DAILY 05/07 1548 AC PO Past History Travel History Traveled to [place] past 21 day No Medical History Neurological: NONE EENT: NONE Cardiovascular: hypertension Respiratory: NONE Gastrointestinal: NONE Hepatic: cirrhosis Renal: NONE Musculoskeletal: NONE Psychiatric: NONE Endocrine: NONE Blood Disorders: NONE Cancer(s): NONE 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 Home Services at Home: None, visiting nursing for wound care past 3 weeks Primary Language: Nauruan Smoking Status: Never Smoked ETOH Use: denies use, gave up alcohol 2 years ago Illicit Drug Use: denies illicit drug use Living Will? yes Functional Ability ADLs Independent: dressing, eating, toileting, bathing. Ambulation: cane, walker IADLs Independent: shopping, housework, finances, food prep, telephone, transportation , medication admin. Review of Systems Comments 12 points reviewed as noted, otherwise negative. Exam & Diagnostic Data Last 24 Hrs of Vital Signs/I&O Vital Signs Date Time Temp Pulse Resp B/P B/P Pulse O2 O2 Flow FiO2 Mean Ox Delivery Rate 05/07 1417 98.4 70 18 122/70 97 05/07 0958 88 136/80 05/07 0702 98.7 64 18 122/60 95 05/06 2338 89 140/76 05/06 2209 98.1 63 20 130/76 99 05/06 2100 97.5 05/06 2058 97.5 63 20 133/67 99 Room Air 05/06 2053 Room Air 05/06 1702 99.2 Intake & Output 05/07 1600 05/07 0800 05/07 0000 Intake Total 360 320 Output Total 600 Balance -240 320 Intake, IV 200 Intake, Oral 360 120 Number 1 Bowel Movements Output, Urine 600 Patient 295 lb Weight Weight Standing Scale Measurement Method Physical Exam Other Physical Findings: General Appearance Alert, Oriented X3, Cooperative, NAD HEENT Atraumatic, Mucous Membr. moist/pink Neck Supple, No JVD, +2 Carotid Pulse wo Bruit, No LAD Lymphatic No cervical OMI Cardiovascular S1, S2 present Lungs Clear to Auscultation, Normal Air Movement Abdomen Normal Bowel Sounds, Soft, obese Neurological Normal Speech, Strength at 5/5 X4 Ext, Cranial Nerves 3-12 NL, Extremities No Clubbing, No Cyanosis, swelling of the R leg/dressing on Described: 2x2 cm ulcer over the R patella, draining serous fluid, no surrounding erythema, 11x7 cm ulcer on the lower leg, draining serous fluid with some granulation tissue present around the boarder. Large area of erythema surrounding the ulcer extinding distally to the ankle and proximally to below the knee. Hyperpigmentated skin on the lower extremities b/l on the shins. Vascular dorsail pedis pulses present Last 24 Hours of Lab Results: Laboratory Tests 05/07 05/06 0813 2335 Chemistry Sodium (137 - 145 mmol/L) 138 Potassium (3.5 - 5.1 mmol/L) 4.6 Chloride (98 - 107 mmol/L) 107 Carbon Dioxide (22 - 30 mmol/L) 22 Anion Gap (5 - 16) 9 BUN (9 - 20 mg/dL) 36 H Creatinine (0.7 - 1.2 mg/dL) 1.4 H Estimated GFR (>60 ml/min) 51 L BUN/Creatinine Ratio (7 - 25 %) 25.7 H Hematology CBC w Diff NO MAN DIFF REQ WBC (4.8 - 10.8 /CUMM) 5.7 RBC (4.70 - 6.10 /CUMM) 3.51 L Hgb (14.0 - 18.0 G/DL) 11.9 L Hct (42 - 52 %) 34.7 L MCV (80.0 - 94.0 FL) 98.8 H MCH (27.0 - 31.0 PG) 33.8 H RDW (11.5 - 14.5 %) 14.4 Plt Count (130 - 400 /CUMM) 106 L MPV (7.4 - 10.4 FL) 7.6 Gran % (42.2 - 75.2 %) 77.0 H Lymphocytes % (20.5 - 51.1 %) 13.3 L Monocytes % (1.7 - 9.3 %) 8.2 Eosinophils % (0 - 5 %) 1.1 Basophils % (0.0 - 2.0 %) 0.4 Absolute Granulocytes (1.4 - 6.5 /CUMM) 4.4 Absolute Lymphocytes (1.2 - 3.4 /CUMM) 0.8 L Absolute Monocytes (0.10 - 0.60 /CUMM) 0.5 Absolute Eosinophils (0.0 - 0.7 /CUMM) 0.1 Absolute Basophils (0.0 - 0.2 /CUMM) 0 PUBS MCHC (33.0 - 37.0 G/DL) 34.2 Urines Urinalysis LIGHT H Urine Color (YEL,AMB,STR) YEL Urine Clarity (CLEAR) HAZY H Urine pH (5.0 - 8.0) 7.0 Ur Specific [place] (1.001 - 1.035) 1.010 Urine Protein (NEG,<30 MG/DL) NEG Urine Ketones (NEG) NEG Urine Nitrite (NEG) POS H Urine Bilirubin (NEG) NEG Urine Urobilinogen (0.1 - 1.0 EU/dl) 2.0 H Ur Leukocyte Esterase (NEG) MOD H Ur Microscopic SEDIMENT EXAMINED Urine RBC (0 - 5 /HPF) RARE Urine WBC (0 - 2 /HPF) 15-25 H Ur Epithelial Cells (NONE,FEW) RARE Urine Bacteria (NEG/NONE) MANY H Urine Hemoglobin (NEG) TRACE-INTACT H Urine Glucose (N MG/DL) NEG 05/06 05/06 2335 2250 Chemistry Ammonia (9 - 30 umol/L) 27 Urines Ur Random Creatinine (mg/dL) 59.3 Ur Random Sodium (30 - 90 mmol/L) 107 H Ur Random Potassium (mmol/L) 16.6 Fraction Sodium Excret (<1% %) 1.9 H Last 24 Hours of Alvin Results: EC #: [id number] TEJA: 05/06/17 STATUS: RES RECD: 05/06/[address]: PERI CELESTE SOURCE: BLOOD ENTR: 05/06/[address]: VIOLA BLANKENSHIP,BRINDA Lopez SPDESC: 2ND/VENOUS ORDERED: BLOOD CULTURE Procedure Result > BLOOD CULTURE REPORT Preliminary 05/07/17-1238 No growth after 1 day incubation. Specimen is examined continuously for 5 days before final report unless culture becomes positive. SPEC #: [id number] TEJA: 05/06/175 STATUS: RECD RECD: 05/07/[address]: JIM BLANKENSHIP,JENNA SOURCE: URINE ROUT ENTR: 05/07/[address]: VIOLA BLANKENSHIP,BRINDA Lopez SPDESC: URIN CLEAN ORDERED: URINE CULTURE COMMENT: UC ADDED AT 033 ON 05/07/17 @FOUND PENDING - NOT PUT Procedure Result URINE CULTURE PENDING Diagnostic Data Recent Imaging Findings: SERVICE DATE: 05/06/17 EXAM TYPE: US - US-DUPLEX VENOUS EXTREM UNI EXAMINATION: US TRIPLEX LOWER EXTREMITY, RIGHT CLINICAL INFORMATION: Right lower extremity edema and pain. COMPARISON: None TECHNIQUE: Color-flow triplex imaging with spectral analysis and compression Doppler were performed on the lower extremity. FINDINGS: Respiratory variation, normal compression and augmented flow are noted throughout the left lower extremity. The visualized common femoral vein, superficial femoral vein, profunda femoral vein, popliteal vein and midcalf peroneal and posterior tibial venous segments show no evidence of deep venous thrombosis. There is no Julien's cyst. IMPRESSION: Normal triplex scan without evidence of deep venous thrombosis involving the lower extremity. DICTATED BY: JENI NEFF MD DATE/TIME DICTATED:05/06/171833 LOGISTICS SPECIALIST:NUVIA DATE/TIME TRANSCRIBED:05/06/171833 CONFIDENTIAL, DO NOT COPY WITHOUT APPROPRIATE AUTHORIZATION. <Electronically signed in Other Vendor System> SIGNED BY: JENI NEFF MD 05/06/171837 Abd US IMPRESSION: Limited by body habitus and bowel gas. Gallbladder not visualized. No bile duct dilatation. DICTATED BY: NEVIN ANDINO MD DATE/TIME DICTATED:05/06/171835 LOGISTICS SPECIALIST:NUVIA DATE/TIME TRANSCRIBED:05/06/171835 Assessment/Plan Assessment/Plan Impression: 61 yo male known with past medical history of cirrhosis of the liver, h/o etoh abuse, chronic pancytopenia, sepsis, status post aortic valve replacement ( bovine) for enterococcal endocarditis diagnosed in 2007, cholelithiasis, hepatosplenomegaly, subdural hematoma, as well as R knee replacement c/b prosthetic joint infection in 2013 (E. coli) admitted 05/06/17. R LE presumed cellulitis R/O UTI Suggestion: 1. Consider d/c Clindamycin and start cefazolin 1 gm q 8 h (monitor for side effects 5-10% of patients w/ allegy to PCN can develop allergic reaction to first generation CS as well). 2. Trend CBC/BMP. ESR/CRP in am. 3. F/U wound care consult recommendations. 4. F/U UC. Consult Acknowledgment - Thank you for your consult request.
[2017-05-07 22:46] VITALS: BP 118/64
[2017-05-08 07:22] VITALS: BP 122/70
[2017-05-08 07:47] LABS: ABSOLUTE BASOPHIL COUNT 0 /CUMM (0.0-0.2); ABSOLUTE EOSINOPHIL COUNT 0.1 /CUMM (0.0-0.7); ABSOLUTE GRANULOCYTE CT 3.4 /CUMM (1.4-6.5); ABSOLUTE LYMPH COUNT 0.8 /CUMM (1.2-3.4); ABSOLUTE MONOCYTE COUNT 0.5 /CUMM (0.10-0.60); BASOPHIL % 0.3 % (0.0-2.0); EOSINOPHIL % 1.3 % (0-5); GRANULOCYTE % 71.7 % (42.2-75.2); HEMATOCRIT 31.3 % (42-52); MEAN CORPUSCULAR HGB 34.1 PG (27.0-31.0); MEAN CORPUSCULAR HGB CONC 34.5 G/DL (33.0-37.0); MEAN CORPUSCULAR VOLUME 98.7 FL (80.0-94.0); MEAN PLATELET VOLUME 7.6 FL (7.4-10.4); RBC DISTRIBUTION WIDTH 14.2 % (11.5-14.5); RED BLOOD CELL CT 3.17 /CUMM (4.70-6.10); WHITE BLOOD CELL COUNT 4.7 /CUMM (4.8-10.8)
[2017-05-08 08:25] LABS: PT 13.5 SEC (9.4-12.5)
[2017-05-08 08:46] VITALS: BP 128/62
[2017-05-08 09:01] LABS: PLATELET COUNT 87 /CUMM (130-400)
--- NOTE | 2017-05-08 10:23 | PN- Housestaff ---
ZULAY BLANKENSHIP,[facility] 05/08/17 1023: Subjective Follow-up For: cELLULITIS SRINIVAS Subjective: I have seen and examined the patient. The patient was sitting comfortably in bed. The patient says he is feeling much better. He does not have any current complaints. He denies any fever or shortness of breath chest pain or palpitations. There were no overnight acute events. Review of Systems Constitutional: Denies: see HPI. Objective Last 24 Hrs of Vital Signs/I&O Vital Signs Date Time Temp Pulse Resp B/P B/P Pulse O2 O2 Flow FiO2 Mean Ox Delivery Rate 05/08 2040 94 130/62 05/08 1527 98.6 73 18 130/73 97 Room Air 05/08 0957 72 122/72 05/08 07 98.4 70 18 122/70 97 Room Air 05/07 2246 98.1 74 19 118/64 98 Room Air 05/07 2140 70 122/70 Intake & Output 05/08 1600 05/08 0800 05/08 0000 Intake Total 250 380 360 Output Total 150 325 250 Balance 100 55 110 Intake, IV 20 Intake, Oral 250 360 360 Output, Urine 150 325 250 Physical Exam General Appearance: Alert, Oriented X3, Cooperative Skin: RLE from ankle to slightly below knee is erythematous, warm to touch, tender to palpation, there is a superficial ulcer (12x7) over the R tibia Cardiovascular: Normal S1, Normal S2 Lungs: Clear to Auscultation, Normal Air Movement Abdomen: Normal Bowel Sounds, Soft Neurological: Normal Speech Current Medications: Current Medications Sig/Clifford Start time Last Medication Dose Route Stop Time Status Admin Acetaminophen 650 MG Q6P PRN 05/06 2145 AC PO Acetaminophen/ 1 TAB Q6P PRN 05/06 214 AC 05/08 Hydrocodone Bitart PO 1243 Calcium/Vitamin D 500 MG DAILY 05/06 2230 AC 05/08 PO 0957 Cefazolin Sodium 1,000 MG IQ8 05/08 0000 AC 05/08 IV 1600 Cyanocobalamin 1,000 MCG DAILY 05/06 2230 AC 05/08 PO 0958 Escitalopram Oxalate 10 MG DAILY 05/06 2230 AC 05/08 PO 0957 Famotidine 20 MG ONCE ONE 05/08 1630 DC 05/08 PO 05/08 1631 1813 Ferrous Sulfate 325 MG DAILY 05/07 1000 AC 05/08 PO 0957 Hydromorphone HCl 0.5 MG Q4 PRN 05/07 0111 AC 05/08 IV 2034 Magnesium Oxide 400 MG BID 05/06 2200 AC 05/08 PO 2038 Metoprolol Tartrate 25 MG BID 05/06 2230 AC 05/08 PO 2039 Rifaximin 550 MG BID 05/06 2230 AC 05/08 PO 2038 Ropinirole HCl 1 MG 05/06 AC 05/08 PO 2038 Spironolactone 100 MG DAILY 05/07 1548 AC 05/08 PO 0956 Last 24 Hrs of Lab/Alvin Results Last 24 Hrs of Labs/Mics: Laboratory Tests 05/08/17 0652: PT 13.5 H, INR 1.29 H 05/08/17 0650: Anion Gap 7, Estimated GFR > 60, BUN/Creatinine Ratio 23.3, Total Bilirubin 1.2, Direct Bilirubin 0.5 H, AST 29, ALT 25, Alkaline Phosphatase 61, C-Reactive Prot, Quant 4.2 H, C-React Prot High Sens > 15.0 H, Total Protein 5.5 L, Albumin 2.7 L, CBC w Diff NO MAN DIFF REQ, RBC 3.17 L, MCV 98.7 H, MCH 34.1 H, RDW 14.2, MPV 7.6, Gran % 71.7, Lymphocytes % 17.0 L, Monocytes % 9.7 H, Eosinophils % 1.3, Basophils % 0.3, Absolute Granulocytes 3.4, Absolute Lymphocytes 0.8 L, Absolute Monocytes 0.5, Absolute Eosinophils 0.1, Absolute Basophils 0, PUBS MCHC 34.5, ESR Westergren 50 H Assessment/Plan Assessment: Pt is a 61 y/o male with a pmh significant for cirrhosis of the liver, chronic pancytopenia, 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 Pt admitted to general medicine for management of the followin. Right lower extremity cellulitis - U/S of Right Leg: r/o DVT - Pt started on IV Cefazolin Q8 as he is allergic to penicillin (had angioedema) but has been desensitized to penicillin in the past. - ID consulted. Appreciate recommendations: - f/u cultures - elevate R leg - wound care consult placed with Dr. So - control pain - continue to monitor temp and WBC -If urinary symptoms repeat UA/UC. 2. Acute Kidney Injury, possibly due to dehydration Cr:1.4, pt claims that he had has not drank much water in the past 24 hours, is on Lasix BID at home. Pt reports urinary frequency. - IVF rehydration - F/U UA and urine electrolytes - hold home lasix and spironolactone - avoid nephrotoxic drugs 3. history of htn - c/w Metoprolol. (converted from home medication Nadolol) - lasix and spironolactone being held due to SRINIVAS, monitor BP - Heart healthy diet 4. Liver Cirrhosis 2/2 to Alcoholism (stopped drinking 2 years ago) - has thrombocytopenia - MELD: 18 based on previous INR (from 2016) - obtain LFTs tomorrow - on Rifaximin DVT prophylaxis: Pt has allergy to heparin. ALP on left leg only. Diet: Regular Code status: Full Code Problem List: 1. Cellulitis 2. Acute kidney failure Pain Ratin Pain Location: Right leg Pain Goal: Pain 4 or less Pain Plan: dilaudid Tomorrow's Labs & Rationales: cbc lfts bep inr YG DILL MD 05/08/17 1329: Attending MD Review Statement Attending Statement Attending MD Statement: examined this patient, agreed w/resident/PA/MGMT SPECIALIST, reviewed EMR data (avail), reviewed images, amended to note Attending Assessment/Plan: Mr. Lang was interviewed, examined, and his EHR are reviewed. He states he feels "blah" today but denies fever chills and sweats. His vital signs are stable and his physical exam is benign. WBC is trending downward and his blood cultures remain negative. Urine culture grew multiple species. Mr. Lang has been changed to cefazolin for treatment of his presumed cellulitis. He is tolerating this antibiotic well. I agree with Luna Dominguez MD that his urine culture should be repeated should he develop symptoms. We will continue our present course of treatment for his cellulitis and continue his outpatient maintenance medications.
--- NOTE | 2017-05-08 13:22 | PN- Infect Dx ---
Subjective Subjective: No fever/chills. Fair appetite. R LE discomfort. Feel fatigued. Review of Systems Comments: 12 points reviewed as noted, otherwise negative. Objective Last 24 Hrs of Vital Signs/I&O Vital Signs Date Time Temp Pulse Resp B/P B/P Pulse O2 O2 Flow FiO2 Mean Ox Delivery Rate 05/08 0957 72 122/72 05/08 0722 98.4 70 18 122/70 97 Room Air 05/07 2246 98.1 74 19 118/64 98 Room Air 05/07 2140 70 122/70 05/07 1417 98.4 70 18 122/70 97 Intake & Output 05/08 1600 05/08 0800 05/08 0000 Intake Total 380 360 Output Total 325 250 Balance 55 110 Intake, IV 20 Intake, Oral 360 360 Output, Urine 325 250 Physical Exam Other Physical Findings: General Appearance Alert, Oriented X3, Cooperative, NAD HEENT Atraumatic, Mucous Membr. moist/pink Neck Supple, No JVD, +2 Carotid Pulse wo Bruit, No LAD Lymphatic No cervical OMI Cardiovascular S1, S2 present Lungs Clear to Auscultation, Normal Air Movement Abdomen Normal Bowel Sounds, Soft, obese Neurological Normal Speech, Strength at 5/5 X4 Ext, Cranial Nerves 3-12 NL, Extremities No Clubbing, No Cyanosis, swelling of the R leg/dressing on small ulcer over the R patella, draining serous fluid, and larger ulcer on the lower leg with surrounding erythema (improved from previous day). Hyperpigmentated skin on the lower extremities b/l on the shins. Vascular dorsail pedis pulses present Results Last 24 Hours of Lab Results: Laboratory Tests 05/08 05/08 0652 0650 Chemistry Sodium (137 - 145 mmol/L) 139 Potassium (3.5 - 5.1 mmol/L) 4.8 Chloride (98 - 107 mmol/L) 107 Carbon Dioxide (22 - 30 mmol/L) 24 Anion Gap (5 - 16) 7 BUN (9 - 20 mg/dL) 28 H Creatinine (0.7 - 1.2 mg/dL) 1.2 Estimated GFR (>60 ml/min) > 60 BUN/Creatinine Ratio (7 - 25 %) 23.3 Total Bilirubin (0.2 - 1.3 mg/dL) 1.2 Direct Bilirubin (< 0.4 mg/dL) 0.5 H AST (17 - 59 U/L) 29 ALT (21 - 72 U/L) 25 Alkaline Phosphatase (< 127 U/L) 61 C-Reactive Prot, Quant (<1.0 mg/dL) 4.2 H C-React Prot High Sens (1.0 - 3.0 mg/L) > 15.0 H Total Protein (6.3 - 8.2 g/dL) 5.5 L Albumin (3.5 - 5.0 g/dL) 2.7 L Coagulation PT (9.4 - 12.5 SEC) 13.5 H INR (0.90 - 1.17) 1.29 H Hematology CBC w Diff NO MAN DIFF REQ WBC (4.8 - 10.8 /CUMM) 4.7 L RBC (4.70 - 6.10 /CUMM) 3.17 L Hgb (14.0 - 18.0 G/DL) 10.8 L Hct (42 - 52 %) 31.3 L MCV (80.0 - 94.0 FL) 98.7 H MCH (27.0 - 31.0 PG) 34.1 H RDW (11.5 - 14.5 %) 14.2 Plt Count (130 - 400 /CUMM) 87 L MPV (7.4 - 10.4 FL) 7.6 Gran % (42.2 - 75.2 %) 71.7 Lymphocytes % (20.5 - 51.1 %) 17.0 L Monocytes % (1.7 - 9.3 %) 9.7 H Eosinophils % (0 - 5 %) 1.3 Basophils % (0.0 - 2.0 %) 0.3 Absolute Granulocytes (1.4 - 6.5 /CUMM) 3.4 Absolute Lymphocytes (1.2 - 3.4 /CUMM) 0.8 L Absolute Monocytes (0.10 - 0.60 /CUMM) 0.5 Absolute Eosinophils (0.0 - 0.7 /CUMM) 0.1 Absolute Basophils (0.0 - 0.2 /CUMM) 0 PUBS MCHC (33.0 - 37.0 G/DL) 34.5 ESR Westergren (0 - 10 MM) 50 H Last 24 Hours of Alvin Results: SPEC #: [id number] TEJA: 05/06/17-3751 STATUS: COMP RECD: 05/07/17-[address]: JIM BLANKENSHIP,JENNA SOURCE: URINE ROUT ENTR: 05/07/[address]: VIOLA BLANKENSHIP,BRINDA Lopez [facility]: URIN CLEAN ORDERED: URINE CULTURE COMMENT: UC ADDED AT 336 ON 05/07/17 @FOUND PENDING - NOT PUT Procedure Result > URINE CULTURE Final 05/08/17-1205 MULTIPLE COLONY TYPES PRESENT CONSISTENT WITH CONTAMINATION. PLEASE RE-SUBMIT A CLEAN CATCH URINE IF SYMPTOMS PERSIST. Recent Imaging Studies: RVICE DATE: 05/06/17 EXAM TYPE: US - US-LIMITED ABDOMEN EXAMINATION: US ABDOMEN LIMITED CLINICAL INFORMATION: Elevated bilirubin. COMPARISON: Ultrasound abdomen 05/17/2014. CT of chest abdomen pelvis 02/11/2013. TECHNIQUE: Real-time imaging of the right upper quadrant abdominal viscera. Color Doppler exam. FINDINGS: Limited by body habitus and bowel gas. PANCREAS: Obscured by bowel gas LIVER: Not well visualized due to bowel gas. No focal liver lesion or intrahepatic bile duct dilatation. Patient has history of cirrhosis on prior studies. This is not well delineated with ultrasound today. GALLBLADDER: Not visualized COMMON BILE DUCT: Normal in caliber measuring 0.3 cm in diameter. RIGHT KIDNEY: Normal. No hydronephrosis. No renal calculi or focal parenchymal lesions. The kidney measures 10.6 cm in maximum dimension. FREE FLUID: None. IMPRESSION: Limited by body habitus and bowel gas. Gallbladder not visualized. No bile duct dilatation. 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 coli) admitted 05/06/17. R LE cellulitis R/O UTI Suggestion: 1. Cefazolin 1 gm q 8 h (monitor for side effects 5-10% of patients w/ allegy to PCN can develop allergic reaction to first generation CS as well). 2. Trend CBC/BMP. 3. F/U wound care consult recommendations. 4. If urinary sx repeat UA/UC.
[2017-05-08 15:27] VITALS: BP 130/73
[2017-05-08 22:07] VITALS: BP 100/60
[2017-05-08 22:09] VITALS: BP 116/70
[2017-05-09 06:28] VITALS: BP 120/68
[2017-05-09 07:48] LABS: ABSOLUTE BASOPHIL COUNT 0 /CUMM (0.0-0.2); ABSOLUTE EOSINOPHIL COUNT 0.1 /CUMM (0.0-0.7); ABSOLUTE GRANULOCYTE CT 3.2 /CUMM (1.4-6.5); ABSOLUTE MONOCYTE COUNT 0.5 /CUMM (0.10-0.60); BASOPHIL % 0.4 % (0.0-2.0); EOSINOPHIL % 2.2 % (0-5); GRANULOCYTE % 67.2 % (42.2-75.2); HEMATOCRIT 32.5 % (42-52); MEAN CORPUSCULAR HGB 33.4 PG (27.0-31.0); MEAN CORPUSCULAR HGB CONC 33.8 G/DL (33.0-37.0); MEAN CORPUSCULAR VOLUME 98.7 FL (80.0-94.0); MEAN PLATELET VOLUME 7.6 FL (7.4-10.4); PLATELET COUNT 91 /CUMM (130-400); RBC DISTRIBUTION WIDTH 14.5 % (11.5-14.5); WHITE BLOOD CELL COUNT 4.8 /CUMM (4.8-10.8)
[2017-05-09 08:26] LABS: PT 13.3 SEC (9.4-12.5)
--- NOTE | 2017-05-09 09:57 | PN- Housestaff ---
See Addendum Subjective Follow-up For: Cellulitis SRINIVAS Subjective: I have seen and examined the patient. The patient was lying comfortably in the bed. He had color pencils andcoloring paper in front of him. This patient says that 2 days ago day for him.. He does not have any current complaints. He denies any fevers shortness of breath chest pain or palpitation. There were no overnight acute events. The patient said that his IV line has been changed because the previous one was not working, Review of Systems Constitutional: Denies: see HPI. Objective Last 24 Hrs of Vital Signs/I&O Vital Signs Date Time Temp Pulse Resp B/P B/P Pulse O2 O2 Flow FiO2 Mean Ox Delivery Rate 05/09 0628 98.0 58 20 120/68 98 Room Air 05/08 2209 98.5 70 20 116/70 97 05/08 2040 94 130/62 05/08 1527 98.6 73 18 130/73 97 Room Air 05/08 0957 72 122/72 Intake & Output 05/09 1600 05/09 0800 05/09 0000 Intake Total 240 290 Output Total 400 200 Balance -160 90 Intake, IV 10 Intake, Oral 240 280 Output, Urine 400 200 Physical Exam General Appearance: Alert, Oriented X3, Cooperative, No Acute Distress Skin: RLE from ankle to slightly below knee is erythematous, warm to touch, tender to palpation, there is a superficial ulcer (12x7) over the R tibia Skin Temp/Moisture Exam: Cool/Dry Neck: Supple Cardiovascular: Normal S1, Normal S2, No Murmurs Lungs: Clear to Auscultation, Normal Air Movement Abdomen: Normal Bowel Sounds, Soft, No Tenderness Neurological: Normal Speech Current Medications: Current Medications Sig/Clifford Start time Last Medication Dose Route Stop Time Status Admin Acetaminophen 650 MG Q6P PRN 05/06 2145 AC PO Acetaminophen/ 1 TAB Q6P PRN 05/06 Hydrocodone Bitart PO 234 Calcium/Vitamin D 500 MG DAILY 05/06 PO 0957 Cefazolin Sodium 1,000 MG IQ8 05/08 0000 AC 05/08 IV 2347 Cyanocobalamin 1,000 MCG DAILY 05/06 PO 0958 Escitalopram Oxalate 10 MG DAILY 05/06 PO 0957 Famotidine 20 MG ONCE ONE 05/08 1630 DC 05/08 PO 05/08 1631 1813 Ferrous Sulfate 325 MG DAILY 05/07 1000 AC 05/08 PO 0957 Hydromorphone HCl 0.5 MG Q4 PRN 05/07 0111 AC 05/09 IV 0601 Magnesium Oxide 400 MG BID 05/06 2200 AC 05/08 PO 2038 Metoprolol Tartrate 25 MG BID 05/06 2230 AC 05/08 PO 2039 Rifaximin 550 MG BID 05/06 2230 AC 05/08 PO 2038 Ropinirole HCl 1 MG 05/06 AC 05/08 PO 2038 Spironolactone 100 MG DAILY 05/07 1548 AC 05/08 PO 0956 Last 24 Hrs of Lab/Alvin Results Last 24 Hrs of Labs/Mics: Laboratory Tests 05/09/17 0650: Anion Gap 7, Estimated GFR > 60, BUN/Creatinine Ratio 18.3, Total Bilirubin 0.9, Direct Bilirubin 0.3, AST 30, ALT 33, Alkaline Phosphatase 68, Total Protein 5.4 L, Albumin 2.7 L, PT 13.3 H, INR 1.27 H, CBC w Diff NO MAN DIFF REQ, RBC 3.30 L, MCV 98.7 H, MCH 33.4 H, RDW 14.5, MPV 7.6, Gran % 67.2, Lymphocytes % 20.8, Monocytes % 9.4 H, Eosinophils % 2.2, Basophils % 0.4, Absolute Granulocytes 3.2, Absolute Lymphocytes 1.0 L, Absolute Monocytes 0.5, Absolute Eosinophils 0.1, Absolute Basophils 0, PUBS MCHC 33.8 Assessment/Plan Assessment: Pt is a 61 y/o male with a pmh significant for cirrhosis of the liver, chronic pancytopenia, 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 Pt admitted to general medicine for management of the followin. Right lower extremity cellulitis - U/S of Right Leg: r/o DVT - Pt started on IV Cefazolin Q8 DAY 2 as he is allergic to penicillin (had angioedema) but has been desensitized to penicillin in the past. - ID consulted. Appreciate recommendations: - f/u cultures - elevate R leg - wound care consult placed with Dr. So - control pain - continue to monitor temp and WBC -If urinary symptoms repeat UA/UC. 2. Acute Kidney Injury, possibly due to dehydration Cr:1.4, pt claims that he had has not drank much water in the past 24 hours, is on Lasix BID at home. Pt reports urinary frequency. - IVF rehydration - F/U UA and urine electrolytes - hold home lasix and spironolactone - avoid nephrotoxic drugs 3. history of htn - c/w Metoprolol. (converted from home medication Nadolol) - lasix and spironolactone being held due to SRINIVAS, monitor BP - Heart healthy diet 4. Liver Cirrhosis 2/2 to Alcoholism (stopped drinking 2 years ago) - has thrombocytopenia - MELD: 18 based on previous INR (from 2016) - obtain LFTs tomorrow - on Rifaximin DVT prophylaxis: Pt has allergy to heparin. ALP on left leg only. Diet: Regular Code status: Full Code Problem List: 1. Cellulitis Pain Ratin Pain Location: RIGHT LEG Pain Goal: Pain 4 or less Pain Plan: dilaudid Tomorrow's Labs & Rationales: CBC BEP
--- NOTE | 2017-05-09 12:28 | PN- Infect Dx ---
Subjective Subjective: He does not have new complaints. He denies fever, chills, shortness of breath, chest pain or palpitation. There were no overnight acute events. IV line has been changed. Review of Systems Comments: 12 points reviewed as noted, otherwise negative. Objective Last 24 Hrs of Vital Signs/I&O Vital Signs Date Time Temp Pulse Resp B/P B/P Pulse O2 O2 Flow FiO2 Mean Ox Delivery Rate 05/09 0922 60 122/70 05/09 0628 98.0 58 20 120/68 98 Room Air 05/08 2209 98.5 70 20 116/70 97 05/08 2040 94 130/62 05/08 1527 98.6 73 18 130/73 97 Room Air Intake & Output 05/09 1600 05/09 0800 05/09 0000 Intake Total 240 290 Output Total 900 400 200 Balance -900 -160 90 Intake, IV 10 Intake, Oral 240 280 Output, Urine 900 400 200 Physical Exam Other Physical Findings: General Appearance Alert, Oriented X3, Cooperative, NAD HEENT Atraumatic, Mucous Membr. moist/pink Neck Supple, No JVD, +2 Carotid Pulse wo Bruit, No LAD Lymphatic No cervical OMI Cardiovascular S1, S2 present Lungs Clear to Auscultation, Normal Air Movement Abdomen Normal Bowel Sounds, Soft, obese Neurological Normal Speech, Strength at 5/5 X4 Ext, Cranial Nerves 3-12 NL, Extremities No Clubbing, No Cyanosis, swelling of the R leg/dressing on small ulcer over the R patella, draining serous fluid, and larger ulcer on the lower leg with improving surrounding erythema. Hyperpigmentated skin on the lower extremities b/l on the shins. Vascular dorsail pedis pulses present Results Last 24 Hours of Lab Results: Laboratory Tests 05/09 0650 Chemistry Sodium (137 - 145 mmol/L) 136 L Potassium (3.5 - 5.1 mmol/L) 4.4 Chloride (98 - 107 mmol/L) 105 Carbon Dioxide (22 - 30 mmol/L) 24 Anion Gap (5 - 16) 7 BUN (9 - 20 mg/dL) 22 H Creatinine (0.7 - 1.2 mg/dL) 1.2 Estimated GFR (>60 ml/min) > 60 BUN/Creatinine Ratio (7 - 25 %) 18.3 Total Bilirubin (0.2 - 1.3 mg/dL) 0.9 Direct Bilirubin (< 0.4 mg/dL) 0.3 AST (17 - 59 U/L) 30 ALT (21 - 72 U/L) 33 Alkaline Phosphatase (< 127 U/L) 68 Total Protein (6.3 - 8.2 g/dL) 5.4 L Albumin (3.5 - 5.0 g/dL) 2.7 L Coagulation PT (9.4 - 12.5 SEC) 13.3 H INR (0.90 - 1.17) 1.27 H Hematology CBC w Diff NO MAN DIFF REQ WBC (4.8 - 10.8 /CUMM) 4.8 RBC (4.70 - 6.10 /CUMM) 3.30 L Hgb (14.0 - 18.0 G/DL) 11.0 L Hct (42 - 52 %) 32.5 L MCV (80.0 - 94.0 FL) 98.7 H MCH (27.0 - 31.0 PG) 33.4 H RDW (11.5 - 14.5 %) 14.5 Plt Count (130 - 400 /CUMM) 91 L MPV (7.4 - 10.4 FL) 7.6 Gran % (42.2 - 75.2 %) 67.2 Lymphocytes % (20.5 - 51.1 %) 20.8 Monocytes % (1.7 - 9.3 %) 9.4 H Eosinophils % (0 - 5 %) 2.2 Basophils % (0.0 - 2.0 %) 0.4 Absolute Granulocytes (1.4 - 6.5 /CUMM) 3.2 Absolute Lymphocytes (1.2 - 3.4 /CUMM) 1.0 L Absolute Monocytes (0.10 - 0.60 /CUMM) 0.5 Absolute Eosinophils (0.0 - 0.7 /CUMM) 0.1 Absolute Basophils (0.0 - 0.2 /CUMM) 0 PUBS MCHC (33.0 - 37.0 G/DL) 33.8 Last 24 Hours of Alvin Results: Reviewed. Recent Imaging Studies: Reviewed. 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 coli) admitted 05/06/17. R LE cellulitis R/O UTI Of note patient afebrile w/ normal WBC while in the hospital. Persistent LE's edema. Suggestion: 1. Cefazolin 1 gm q 8 h D#2 (monitor for side effects 5-10% of patients w/ allegy to PCN can develop allergic reaction to first generation CS as well). Once ready for discharge oral Keflex 750 mg po bid in order to complete total 7 d antibiotic treatmnet. 2. F/U wound care consult recommendations; would patient benefit from LATASHA wrapping LE's (?) or UNNA boots. 3. If developing purulent drainage R LE ulcers obtain local culture.
[2017-05-09 14:32] VITALS: BP 130/70
[2017-05-09 21:45] VITALS: BP 116/70
--- NOTE | 2017-05-10 05:41 | PN- Housestaff ---
Subjective Follow-up For: RLE cellulitis Subjective: Pt states he is doing much better today. Pain in right leg is better. Pt denies fever/chills, n/v/c/d, SOB, chest pain, abdominal pain. No increase discharge from ulcer on right lower extremity. Review of Systems Constitutional: Denies: no symptoms. Cardiovascular: Denies: see HPI. Respiratory: Denies: see HPI. Gastrointestinal: Denies: see HPI. Genitourinary: Denies: see HPI. Musculoskeletal: Reports: see HPI. Objective Last 24 Hrs of Vital Signs/I&O Vital Signs Date Time Temp Pulse Resp B/P B/P Pulse O2 O2 Flow FiO2 Mean Ox Delivery Rate 05/10 1453 98.0 85 20 140/82 98 05/10 0913 70 130/80 05/10 0710 98.2 58 16 120/70 99 Room Air 05/09 2145 97.8 81 20 116/70 95 Room Air 05/09 2118 86 130/72 Intake & Output 05/10 1600 05/10 0800 05/10 0000 Intake Total 510 390 290 Output Total 350 800 500 Balance 160 -410 -210 Intake, IV 10 30 10 Intake, Oral 500 360 280 Output, Urine 350 800 500 Physical Exam General Appearance: Alert, Oriented X3, Cooperative, No Acute Distress Skin: RLE has a 7x12 cm superficial ulcer, no active discharge, mild tenderness around area, erythema has improved HEENT: Atraumatic, Mucous Membr. moist/pink Cardiovascular: Regular Rate, Normal S1, Normal S2 Lungs: Clear to Auscultation Abdomen: Normal Bowel Sounds, Soft, No Tenderness Extremities: Normal Pulses, trace pitting edema bilaterally Assessment/Plan Assessment: Pt is a 61 y/o male with a pmh significant for cirrhosis of the liver, chronic pancytopenia, 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 Pt admitted to general medicine for management of the followin. Right lower extremity cellulitis - U/S of Right Leg: r/o DVT - Pt started on IV Cefazolin Q8 DAY 3 as he is allergic to penicillin (had angioedema) but has been desensitized to penicillin in the past. - ID consulted. Appreciate recommendations: discharge oral Keflex 750 mg po bid in order to complete total 7 days of antibiotic therapy. - f/u cultures - elevate R leg - wound care consult placed with Dr. So - control pain - switched from IV dilaudid to PO dilaudid - PT evaluated today: ambulating and transferring at baseline. STR is not needed. 2. Acute Kidney Injury, possibly due to dehydration- resolved Cr:1.4, pt claims that he had has not drank much water in the past 24 hours, is on Lasix BID at home. Pt reports urinary frequency. - restarted lasix and spironolactone today 3. history of htn - c/w Metoprolol. (converted from home medication Nadolol) - lasix and spironolactone restarted - Heart healthy diet 4. Liver Cirrhosis 2/2 to Alcoholism (stopped drinking 2 years ago) - has thrombocytopenia - MELD: 9 - LFTs - normal - on Rifaximin DVT prophylaxis: Pt has allergy to heparin. ALP on left leg only. Diet: Regular Code status: Full Code Dispo: home tomorrow with [facility] if pain controlled with PO pain meds today Problem List: 1. Cellulitis 2. Acute kidney failure Pain Ratin Pain Location: RLE Pain Goal: Pain 4 or less Pain Plan: convert from IV to PO today Tomorrow's Labs & Rationales: none
[2017-05-10 07:10] VITALS: BP 120/70
--- NOTE | 2017-05-10 10:59 | Patient Discharge Instructions ---
Discharge Instructions General Discharge Information You were seen/treated for: Cellulitis Watch for these problems: 1. wrosening redness 2. fever 3. joint swelling 4. SOB 5. Chest pain Special Instructions: 1. Follow up with your pc 2. Finish antibotic course 3. continue wound care as instructed for your legs Diet Continue normal diet: No Recommended Diet: Heart Healthy Activity Activity Self Limited: Yes Acute Coronary Syndrome Inclusion Criteria At DC or during hospital stay patient has or had the following: ACS DIAGNOSIS No Discharge Core Measures Meds if any: Prescribed or Continued at Discharge Meds if any: NOT Prescribed or Continued at Discharge Congestive Heart Failure Inclusion Criteria At DC or during hospital stay patient has or had the following: CHF DIAGNOSIS No Discharge Core Measures Meds if any: Prescribed or Continued at Discharge Meds if any: NOT Prescribed or Continued at Discharge Cerebrovascular accident Inclusion Criteria At DC or during hospital stay patient has or had the following: CVA/TIA Diagnosis No Discharge Core Measures Meds if any: Prescribed or Continued at Discharge Meds if any: NOT Prescribed or Continued at Discharge Venous thromboembolism Inclusion Criteria VTE Diagnosis No VTE Type NONE VTE Confirmed by (Test) NONE Discharge Core Measures - Per Current guidelines, there needs to be overlap - treatment for the first 5 days of Warfarin therapy. - If discharged on Warfarin prior to 5 days of - overlap therapy, the patient will need to be - assessed for post discharge needs including - *Post discharge parental anticoagulation - *Warfarin and/or parental anticoagulation education - *Follow up date to check INR post discharge At least 5 days overlap therapy as Inpatient No Meds if any: Prescribed or Continued at Discharge Note: Overlap Therapy is Warfarin and Anticoagulant Meds if any: NOT Prescribed or Continued at Discharge
[2017-05-10] MEDS ORDERED: KEFLEX750 M1 PO (11:00)
--- NOTE | 2017-05-10 12:36 | PN- Att Addend ---
Attending Addendum Attending Brief Note Patient seen and examined. Plan of care discussed with the medical team and the patient. Available lab work and radiology test reports were reviewed. No fever chills, c/o pain in right leg. Assessment: * RLL cellulitis * RLL wound/blisters * LE edema * ARF- improved * hx of HTN * Hx of Liver Cirrhosis Plan * Change to oral keflex 750mg bid * PT eval; ambulate with assist * plan for DC home in am * change to oral dilaudid Exam: General: Patient awake alert oriented without any distress CVS: S1 plus S2 without any murmur or gallops Chest: Few scattered crepitation without any wheeze. There is no respiratory distress. Abdomen: Soft nontender, bowel sound present, no guarding or rebound RECEIVER BULK SYSTEM: Awake alert oriented without any focal neuro deficit and follows command appropriately Extremities: mild edema both legs, skin in dry, reduce redness in right leg; wound is superficial and dry. no clubbing or cyanosis noted Laboratory Tests 05/10 0740 Chemistry Sodium (137 - 145 mmol/L) 136 L Potassium (3.5 - 5.1 mmol/L) 5.0 Chloride (98 - 107 mmol/L) 104 Carbon Dioxide (22 - 30 mmol/L) 25 Anion Gap (5 - 16) 6 BUN (9 - 20 mg/dL) 18 Creatinine (0.7 - 1.2 mg/dL) 1.0 Estimated GFR (>60 ml/min) > 60 BUN/Creatinine Ratio (7 - 25 %) 18.0 Microbiology Date/Time Procedure - Status Source Growth 05/10 0615 Surveillance Culture - RECD UPPER RESP Vital Signs Date Time Temp Pulse Resp B/P B/P Pulse O2 O2 Flow FiO2 Mean Ox Delivery Rate 05/10 0913 70 130/80 05/10 0710 98.2 58 16 120/70 99 Room Air 05/09 2145 97.8 81 20 116/70 95 Room Air 05/09 2118 86 130/72 05/09 1432 98.7 97 20 130/70 96
[2017-05-10 14:53] VITALS: BP 140/82
[2017-05-10 22:49] VITALS: BP 118/70
[2017-05-11 06:27] VITALS: BP 100/60
--- NOTE | 2017-05-11 07:20 | PN- Housestaff ---
Subjective Follow-up For: RLE cellulitis Subjective: I saw and examined the patient today. States he is doing well. Pt continues to have leg pain. Rates it a 7/10. The pain medication has helped. Pt denes fever/ chills, n/v/d/c, abdominal pain/chest pain, SOB, dysuria/hematuria. Pt is eating well. Denies any acute events overnight. Review of Systems Constitutional: Denies: see HPI. Cardiovascular: Denies: see HPI. Respiratory: Denies: see HPI. Gastrointestinal: Denies: see HPI. Genitourinary: Denies: see HPI. Musculoskeletal: Reports: see HPI. Objective Last 24 Hrs of Vital Signs/I&O Vital Signs Date Time Temp Pulse Resp B/P B/P Pulse O2 O2 Flow FiO2 Mean Ox Delivery Rate 05/11 0845 62 118/70 05/11 0627 97.4 58 20 100/60 97 Room Air 05/10 2249 97.5 66 20 118/70 99 Room Air 05/10 2204 60 118/70 05/10 1453 98.0 85 20 140/82 98 Intake & Output 05/11 1600 05/11 0800 05/11 0000 Intake Total 240 510 Output Total 400 160 Balance -160 350 Intake, IV 30 Intake, Oral 240 480 Output, Urine 400 160 Physical Exam General Appearance: Alert, Oriented X3, Cooperative, No Acute Distress HEENT: Atraumatic, Mucous Membr. 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 Pt admitted to general medicine for management of the followin. Right lower extremity cellulitis - U/S of Right Leg: r/o DVT - Pt started on IV Cefazolin Q8 DAY 3 as he is allergic to penicillin (had angioedema) but has been desensitized to penicillin in the past. - ID consulted. Appreciate recommendations: discharge oral Keflex 750 mg po bid in order to complete total 7 days of antibiotic therapy. - f/u cultures - elevate R leg - daily dry dressing changes - control pain - controlling on PO dilaudid - PT evaluated yesterday: ambulating and transferring at baseline. STR is not needed. 2. Acute Kidney Injury, possibly due to dehydration- resolved Cr:1.4, pt claims that he had has not drank much water in the past 24 hours, is on Lasix BID at home. Pt reports urinary frequency. - restarted lasix and spironolactone today 3. history of htn - c/w Metoprolol. (converted from home medication Nadolol) - lasix and spironolactone restarted - Heart healthy diet 4. Liver Cirrhosis 2/2 to Alcoholism (stopped drinking 2 years ago) - has thrombocytopenia - MELD: 9 - LFTs - normal - on Rifaximin DVT prophylaxis: Pt has allergy to heparin. ALP on left leg only. Diet: Regular Code status: Full Code Dispo: home today with [facility] Problem List: 1. Cellulitis Pain Ratin Pain Location: RLE Pain Goal: Pain 7 or less Pain Plan: PO dilaudid PO tylenol Tomorrow's Labs & Rationales: none
[2017-05-11 08:45] VITALS: BP 118/70
--- NOTE | 2017-05-11 09:19 | Discharge Summary ---
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 On admission: Vitals: T: 99.2, HR: 76, BP: 115/57, RR: 18, 96% O2 RA Labs: WBC: 7.2, H/H: 11.5/33.5, Platlet: 124 Imaging: Ultrasound of RLE: Normal triplex scan without evidence of deep venous thrombosis involving the lower extremity. Ultrasound of Abdomen: Limited by body habitus and bowel gas. Gallbladder not visualized. No bile duct dilatation. Pt admitted to general medicine for management of the followin. Right lower extremity cellulitis - U/S of Right Leg: r/o DVT - Pt initially started on IV Clindamycin due to penicillin allergy. Pt was switched to Cefazolin per ID recommendations with no adverse reaction. Cellulitis improved with antibiotic therapy and pt was discharged home on oral Keflex 750 mg po bid in order to complete total 7 days of antibiotic therapy. - blood and urine cultures did not grow anything - Pt had daily dry dressings with xeroform - pain was initially controlled with IV dilaudid and then switched to PO dilaudid. Pt can continued taking his home dilaudid PRN for pain. - PT evaluated yesterday: ambulating and transferring at baseline. STR is not needed at this time. 2. Acute Kidney Injury, possibly due to dehydration- resolved - Cr:1.4, pt claims that he had has not drank much water in the past 24 hours, is on Lasix BID at home. - pt received IV fluid hydration, lasix and spirnolactone were initially held but pt's creatinine improved to 1.0 (baseline) and his home medications were restarted. 3. History of htn - c/w Metoprolol. (converted from home medication Nadolol) - lasix and spironolactone restarted - Heart healthy diet - pt should continue home medications 4. Liver Cirrhosis 2/2 to Alcoholism (stopped drinking 2 years ago) - has thrombocytopenia - MELD: 9 - LFTs - normal - on Rifaximin DVT prophylaxis: Pt has allergy to heparin. ALP on left leg only. Diet: Regular Code status: Full Code Allergies: Coded Allergies: bee venom protein (honey bee) (Severe, SEVERE HIVES 05/06/17) heparin (Severe, TONGUE SWELLED 05/06/17) cat dander (Intermediate, ITCH, WHEEZE, SNEEZE, SWOLLEN EYES, RUNNY NOSE ) Penicillins (CHILDHOOD REACTION PER PT 05/06/17) Uncoded Allergies: BLOOD THINNERS (PER PT MD ROD SAID NO BLOOD THINNERS 05/06/17) Disposition Summary Disposition Principal Diagnosis: RLE Cellulitis Additional Diagnosis: Acute Kidney Injury, History of Htn, Alcoholic Cirrhosis Discharge Disposition: home health services Discharge Instructions General Discharge Information Code Status: Full Code Patient's Diet: Regular, Heart Healthy Patient's Activity: Self Limited Follow-Up Instructions/Appts: 1. Follow up with your pc 2. Finish antibotic course 3. continue wound care as instructed for your legs Medications at Discharge Discharge Medications: Stop taking the following medications: Cefuroxime Axetil (Cefuroxime) 500 MG TABLET ORAL TWICE DAILY Qty = 180 Continue taking these medications: Zolpidem Tartrate (Zolpidem Tartrate) 10 MG TABLET 1 Tablet ORAL Every night as needed Comments: NOT GIVEN Nadolol (Nadolol) 20 MG TABLET 1 Tablet ORAL DAILY Comments: Last Taken: 05/11/17 Time: 845AM Ferrous Sulfate (Ferrous Sulfate) 325 MG (65 MG IRON) TABLET 1 Tablet ORAL DAILY Comments: Last Taken: 05/11/17 Time: 845AM Methylcobalamin (O55-[id number]) 1,000 MCG CAP 1,000 Microgram ORAL DAILY Comments: PER PT MED LIST Magnesium Oxide (Magnesium Oxide) 400 MG TABLET 1 Tablet ORAL TWICE DAILY Comments: Last Taken: 05/11/17 Time: 845AM Rifaximin (Xifaxan) 550 MG TABLET 1 Tablet ORAL TWICE DAILY Comments: Last Taken: 05/11/17 Time: 845AM Spironolactone (Aldactone) 100 MG TABLET 1 Tablet ORAL DAILY Comments: Last Taken: 05/11/17 Time: 845AM Hydromorphone HCl (Dilaudid) 2 MG TABLET 1 Tablet ORAL EVERY 6 HOURS NEEDED as needed for SEVERE PAIN Comments: Last Taken: 05/11/17 Time: 1050AM Escitalopram Oxalate (Escitalopram Oxalate) 10 MG TABLET 10 Milligram ORAL DAILY Comments: Last Taken: 05/11/17 Time: 845AM Ropinirole HCl (Requip) 1 MG TABLET 1 Milligram ORAL NIGHTLY Comments: Last Taken: 05/10/17 Time: 1000PM Furosemide (Furosemide) 40 MG TABLET 40 Milligram ORAL TWICE DAILY Instructions: 2 PILLS DAILY, ONE PILL NIGHTLY Comments: NOT GIVEN IN HOSPITAL Calcium Carbonate/Vitamin D3 (Calcium 500 + D Tablet) 500 MG-400 TABLET 1 Tablet ORAL DAILY Comments: Last Taken: 05/11/17 Time: 8:45AM Start taking the following new medications: Cephalexin (Keflex) 750 MG CAPSULE 1 Capsule ORAL TWICE DAILY Qty = 10 No Refills Comments: NOT GIVEN Copies To: VIOLA BLANKENSHIP,BRINDA Lopez
[2017-05-11] MEDS ORDERED: KEFLEX750 M1 PO (11:58)
--- NOTE | 2017-05-11 13:36 | PN- Att Addend ---
Attending Addendum Attending Brief Note Patient seen and examined. Plan of care discussed with the medical team and the patient. Available lab work and radiology test reports were reviewed. No fever chills, c/o pain in right leg. Patient did work physical therapy. He was able to walk in the hallway yesterday. Today he reports a left upper arm pain which has been chronic. His is present in the room Assessment: * RLL cellulitis * RLL wound/blisters * LE edema * ARF- improved * hx of HTN * Hx of Liver Cirrhosis Plan * Continue oral keflex 750mg bid * plan for DC home * Continue oral dilaudid. Patient has sufficient supply of oral Dilaudid at home * Follow with Dr. Tirado Total time spent in preparation for discharge plan, patient education, and CMR preparation was 35 minutes. Exam: General: Patient awake alert oriented without any distress CVS: S1 plus S2 without any murmur or gallops Chest: Few scattered crepitation without any wheeze. There is no respiratory distress. Abdomen: Soft nontender, bowel sound present, no guarding or rebound [employer]: Awake alert oriented without any focal neuro deficit and follows command appropriately Extremities: mild edema both legs, skin in dry, reduce redness in right leg; wound is superficial and dry. no clubbing or cyanosis noted Vital Signs Date Time Temp Pulse Resp B/P B/P Pulse O2 O2 Flow FiO2 Mean Ox Delivery Rate 05/11 0845 62 118/70 05/11 0627 97.4 58 20 100/60 97 Room Air 05/10 2249 97.5 66 20 118/70 99 Room Air 05/10 2204 60 118/70 05/10 1453 98.0 85 20 140/82 98 Intake & Output 05/11 1600 05/11 0800 05/11 0000 Intake Total 240 510 Output Total 400 160 Balance -160 350 Intake, IV 30 Intake, Oral 240 480 Output, Urine 400 160
== END 2017-05-11 12:40 | disposition home health service (06) | DRG 603 ==
LOC: ERH 16:13 → 2NA 19:44 → ERHI 19:44 → ENRESERV 20:36 → ENTRNSPT 21:36 → EDTRNSPTSTS 21:48 → 2NA 21:56 → CMPTRNSPT 22:14 → 2NA 05-10 08:49 → ENPENDDIS 05-11 12:10 → 2NA 05-11 12:40
PROVIDERS: Emergency Medicine; Student in an Organized Health Care Education/Training Program; ADMIT Internal Medicine
DX: L03.115 Cellulitis of right lower limb (principal); D61.818 Other pancytopenia; N17.9 Acute kidney failure, unspecified; D69.59 Other secondary thrombocytopenia; K70.30 Alcoholic cirrhosis of liver without ascites; E86.0 Dehydration; I10 Essential (primary) hypertension; E66.9 Obesity, unspecified; Z68.38 Body mass index [BMI] 38.0-38.9, adult; F10.21 Alcohol dependence, in remission; Z95.3 Presence of xenogenic heart valve
CPT/HCPCS: 2NAP; 84133; 84300; 36415; 81001; 82436; 82570; 87040; 87086; 93005; 93010; 97116-GO; 97161-GP; 97530-GO; J0131; J0690; J1644

== ENCOUNTER 2017-11-26 13:18 | Inpatient (IN) | payer OTHER, MEDICARE ==
[~2017-11-26] VITALS: Ht 185.4 cm; Wt 139.4 kg
[~2017-11-26 13:18] MED LIST changes: +AUGMENTIN 875-1 EACH PO; +CALCIUM 500 +1 EAC5 PO; +ESCITALOPRAM OX10 MG PO; +FUROSEMIDE40 M1 PO; +HORIZANT600 M1 PO; +KEFLEX500 M1 PO; +KEFLEX750 M1 PO; +MAGNESIUM500 M2 PO; +REQUIP1 M1 PO; +VITAMIN B-121000 MC3 PO
--- NOTE | 2017-11-26 15:23 | ED UPPER/LOWER EXTREMITY COMPL ---
History of Present Illness General Chief Complaint: Lower Extremity Problems Stated Complaint: PT SIB FOR A INFECTION IN THE RT LEG Source: patient Exam Limitations: no limitations Vital Signs & Intake/Output Vital Signs & Intake/Output Vital Signs Date Time Temp Pulse Resp B/P B/P Pulse O2 O2 Flow FiO2 Mean Ox Delivery Rate 11/27 0054 98.2 62 20 122/82 98 11/26 2313 96.3 64 18 120/76 97 Room Air 11/26 2038 98.0 61 20 123/61 95 Room Air 11/26 1838 99.2 62 18 123/58 96 Room Air 11/26 1538 97 11/26 1533 98.2 68 18 136/64 98 Room Air 11/26 1436 97.8 66 18 129/80 99 Room Air ED Intake and Output 11/27 0000 11/26 1200 Intake Total 0 Output Total 800 Balance -800 Intake, Oral 0 Output, Urine 800 Patient 302 lb Weight Weight Reported by Patient Measurement Method Allergies Coded Allergies: bee venom protein (honey bee) (Severe, SEVERE HIVES 05/06/17) heparin (Severe, TONGUE SWELLED 05/06/17) cat dander (Intermediate, ITCH, WHEEZE, SNEEZE, SWOLLEN EYES, RUNNY NOSE ) Penicillins (CHILDHOOD REACTION PER PT 05/06/17) Uncoded Allergies: BLOOD THINNERS (PER PT MD ROD SAID NO BLOOD THINNERS 05/06/17) Reconcile Medications Calcium Carbonate/Vitamin D3 (Calcium 500 + D Tablet) 500 MG-400 TABLET 1 TAB PO DAILY SUPPLEMENT (Reported) Cyanocobalamin (Vitamin B-12) 1,000 MCG TABLET 1 TAB PO DAILY SUPPLEMENT ( Reported) Escitalopram Oxalate 10 MG TABLET 10 MG PO DAILY DEPRESSION (Reported) Ferrous Sulfate 325 MG (65 MG IRON) TABLET 1 TAB PO DAILY SUPPLEMENT ( Reported) Furosemide 40 MG TABLET 60 MG PO BID EDEMA (Reported) Gabapentin (Neurontin) 300 MG CAPSULE 1 CAP PO QHS RLS (Reported) Hydromorphone HCl 2 MG TABLET 1 TAB PO DAILY PRN PAIN (Reported) Magnesium Oxide (Magnesium) 500 MG CAPSULE 1 CAP PO DAILY SUPPLEMENT ( Reported) Nadolol 20 MG TABLET 1 TAB PO DAILY HTN (Reported) Spironolactone (Aldactone) 100 MG TABLET 1 TAB PO DAILY HTN, CIRRHOSIS ( Reported) Triage Note: C/O R LOWER LEG REDNESS AND PAIN X 2 DAYS, HAS A HX OF VASCULAR PROBLEMS, AND BLISTERED ULCERS. HAS DRESSING CHANGES TWICE WEEKLY. Triage Nurses Notes Reviewed? yes Onset: Gradual Duration: getting worse Timing: recent history Severity: moderate Severity Numbers: 5 HPI: Patient is a 62-year-old male with a past medical history of cirrhosis and alcohol abuse, aortic valve replacement bovine, infective endocarditis, thrombocytopenia 3 right knee replacements and intermittent right leg cellulitis, and peripheral arterial disease in which he presents emergency room with a 2 day history of acute onset of expensive erythema redness swelling to his right lower leg above the ankle and below the knee Patient is also complaining of pedal edema and pedal paresthesia Patient denies any fever chills and is otherwise without complaints. Patient states that he has chronic wound care to his right lower leg in which the visiting nurse on Wednesday evaluated the leg with unremarkable findings however today visiting nurse was concerned with expensive erythema and concern for cellulitis (Anuj Pinto) Past History Travel History Traveled to [place] past 21 day No Medical History Any Pertinent Medical History? see below for history Neurological: restless leg syndrome EENT: NONE Cardiovascular: hypertension Respiratory: NONE Gastrointestinal: NONE Hepatic: cirrhosis Renal: NONE Musculoskeletal: RESTLESS LEGS Psychiatric: depression, ETOH ABUSE Endocrine: NONE Blood Disorders: NONE Cancer(s): NONE INVASIVE PHYSICIAN/Reproductive: NONE History of MRSA: No History of VRE: No History of CDIFF: No Tetanus Vaccine: 10/06/09 Surgical History Surgical History: CABG, R KNEE SURGERY (3) R ARM FX Psychosocial History Who do you live with Patient/Self Services at Home None, visiting nursing for wound care What is your primary language [place]ankan Tobacco Use: Never used ETOH Use: denies use Family History Family History, If Any: Relation not specified for: *No pertinent family history Hx Contributory? No (Anuj Pinto) Review of Systems Review of Systems Constitutional: Reports: see HPI. Denies: chills, fever. EENTM: Reports: no symptoms. Respiratory: Reports: no symptoms. Cardiovascular: Reports: no symptoms. Gastrointestinal/Abdominal: Reports: no symptoms. Genitourinary: Reports: no symptoms. Musculoskeletal: Reports: no symptoms. Skin: Reports: see HPI, erythema. Neurological/Psychological: Reports: see HPI. Hematologic/Endocrine: Reports: no symptoms. Immunological: Reports: no symptoms. All Other Systems: Reviewed and Negative (Anuj Pinto) Physical Exam Physical Exam General Appearance: no apparent distress, obese Head: atraumatic Eyes: Bilateral: normal appearance. Ears, Nose, Throat: hearing grossly normal Neck: normal inspection Cardiovascular/Respiratory: no respiratory distress Peripheral Pulses: 2+ dorsalis pedis (R) Neurologic/Tendon: normal motor functions, normal tendon functions, responds to pain, no evidence tendon injury, no pulse deficit Diagram Legs Front/Back 1) Noted circumferential erythema warmth and point tenderness and swelling 2) Noted below the knee and generalized swelling (Anuj Pinto) Progress Differential Diagnosis: arterial insufficiency, cellulitis, CHF, compartment syndrome, contusion, dislocation, DVT, fracture, gout, septic arthritis, sprain, tendon injury Plan of Care: Orders Procedure Date/time Status Nothing by Mouth 11/27 B Active BLOOD CULTURE 11/26 2343 Active Pathway - chart 11/26 2246 Active Pathway - chart 11/26 2243 Active Patient Data 11/26 2243 Active Code Status 11/26 2243 Active URINALYSIS 11/26 2236 Active Patient Data 11/26 2228 Active Saline Lock 11/26 221 Active Misc Message 11/26 221 Active ED Holding Orders 11/26 221 Active Admit to inpatient 11/26 2213 Active Vital Signs 11/26 2213 Active Code Status 11/26 2213 Complete EKG 11/26 2009 Active BLOOD CULTURE 11/26 1543 Active LACTIC ACID 11/26 1543 Complete COMPREHENSIVE METABOLIC PANEL 11/26 1543 Complete CBC WITHOUT DIFFERENTIAL 11/26 1543 Complete Intake & Output 11/26 1533 Active House Staff 11/26 UNK Active VTE Mechanical Prophylaxis 11/26 UNK Active Vital Signs 11/26 UNK Active Current Medications Sig/Clifford Start time Last Medication Dose Stop Time Status Admin Calcium/Vitamin D 1 TAB DAILY 11/27 1000 AC (Caltrate 600 + D) Cyanocobalamin 1,000 MCG DAILY 11/27 1000 AC (Vitamin B12) Escitalopram Oxalate 10 MG DAILY 11/27 1000 AC (Lexapro) Ferrous Sulfate 325 MG DAILY 11/27 1000 AC (Feosol) Furosemide 60 MG BID 11/27 1000 AC (Lasix) Magnesium Oxide 400 MG DAILY 11/27 1000 AC (Mag-Ox) Nadolol 20 MG DAILY 11/27 1000 AC (Corgard) Gabapentin 300 MG AT BEDTIME 11/27 0015 AC 11/27 (Neurontin) 0206 Cefazolin Sodium 1,000 MG IQ8 11/27 0000 AC 11/27 (Kefzol-Ancef Inj) 0135 Oxycodone/ 2 TAB Q6P PRN 11/26 2245 AC 11/27 Acetaminophen 0138 (Percocet) Laboratory Tests 11/26/17 1843: Lactic Acid Cancelled 11/26/17 1640: Anion Gap 8, Estimated GFR > 60, BUN/Creatinine Ratio 22.0, Glucose 97, Lactic Acid 1.9, Calcium 9.6, Total Bilirubin 2.1 H, AST 26, ALT 24, Alkaline Phosphatase 54, Total Protein 6.7, Albumin 3.5, Globulin 3.2, Albumin/Globulin Ratio 1.1, CBC w Diff NO MAN DIFF REQ, RBC 3.40 L, MCV 99.9 H, MCH 34.2 H, MCHC 34.3, RDW 15.0 H, MPV 8.0, Gran % 75.7 H, Lymphocytes % 15.6 L, Monocytes % 7.2, Eosinophils % 0.8, Basophils % 0.7, Absolute Granulocytes 5.9, Absolute Lymphocytes 1.2, Absolute Monocytes 0.6, Absolute Eosinophils 0.1, Absolute Basophils 0.1 Microbiology 11/26 2343 BLOOD: Blood Culture - ORD 11/26 1640 BLOOD: Blood Culture - RECD 11/26 1543 BLOOD: Blood Culture - CAN Cancelled: Cancelled via OE: UNABLE TO OBTAIN PA AWARE Patient on initial presentation was resting complaining bedside Patient is given pain management IV morphine for concerns of right lower leg cellulitis complaints, due to patient's comorbidities and immunocompromised liver failure and cirrhosis that there is consideration of acute onset of profound cellulitis to right lower extremity that patient would be warranted an admission for IV antibiotics repeat blood work wound care Discussed admission with patient who is aware and agrees patient was given IV cefazolin Ultrasounds were unremarkable for venous or arterial insufficiency or abnormalities at this time No concerns of sepsis Diagnostic Imaging: Viewed by Me: Ultrasound. Radiology Impression: no acute abnormality, no fracture Initial ED EKG: normal intervals, normal p-waves, normal QRS complex, 60 BPM,NSR Comments: PATIENT: KIANNA RAMIREZ PRESENT AGE: 62 PATIENT ACCOUNT NO: [id number] : 53 LOCATION: [facility] ORDERING PHYSICIAN: Anuj DARLING SERVICE DATE: 11/26/17 EXAM TYPE: US - US-DUPLEX SCAN LOWER EXT ARTER EXAMINATION: US DUPLEX LOWER EXTREMITY ARTERY/GRAFT LIMITED, RIGHT CLINICAL INFORMATION: Right lower extremity numbness/tingling COMPARISON: 08/02/17 TECHNIQUE: Real-time ultrasound and Doppler techniques (integrating B-mode 2-D vascular images, Doppler spectral analysis and color flow Doppler imaging) were utilized to interrogate the lower extremities. FINDINGS: Right lower extremity: Common femoral artery: 91.1 cm/sec; triphasic waveform Superficial femoral artery proximal: 89.7 cm/sec; triphasic waveform Superficial femoral artery mid portion: 156 cm/sec; triphasic waveform Superficial femoral artery distal: 110 cm/sec; triphasic waveform Profunda artery: 61.0 cm/sec; biphasic waveform Popliteal artery: 73.9 cm/sec; triphasic waveform Posterior tibial artery: 49.9 cm/sec; triphasic waveform Anterior tibial artery: 82.5 cm/sec; triphasic waveform Dorsalis pedis artery: 25.5 cm/sec; biphasic waveform ADDITIONAL FINDINGS: None. IMPRESSION: The arteries of the right lower extremity are all patent without significant peripheral arterial disease. Greater sensitivity and specificity can be obtained with pre-and post exercise PVRs with NIKHIL calculations. DICTATED BY: Vanesa Zarate MD DATE/TIME DICTATED:11/26/171999 THERAPIST'S ASSISTANT:NUVIA DATE/TIME TRANSCRIBED:11/26/171999 PATIENT: KIANNA RAMIREZ PRESENT AGE: 62 PATIENT ACCOUNT NO: [id number] : 53 LOCATION: [facility] ORDERING PHYSICIAN: Anuj DARLING SERVICE DATE: 11/26/175155 EXAM TYPE: US - US-UNILATERAL VENOUS DOPPLER EXAMINATION: US TRIPLEX LOWER EXTREMITY, RIGHT CLINICAL INFORMATION: Right leg swelling and pain. COMPARISON: Prior ultrasound April 2017 TECHNIQUE: Color-flow triplex imaging with spectral analysis and compression Doppler were performed on the lower extremity. FINDINGS: Respiratory variation, normal compression and augmented flow are noted throughout the lower extremity. The visualized common femoral vein, superficial femoral vein, profunda femoral vein, popliteal vein and midcalf peroneal and posterior tibial venous segments show no evidence of deep venous thrombosis. There is no Julien's cyst. IMPRESSION: Normal triplex scan without evidence of deep venous thrombosis involving the lower extremity. DICTATED BY: Ezequiel Holder MD DATE/TIME DICTATED:11/26/171807 THERAPIST'S ASSISTANT:NUVIA DATE/TIME TRANSCRIBED:11/26/171807 CONFIDENTIAL, DO NOT COPY WITHOUT APPROPRIATE AUTHORIZATION. <Electronically signed in Other Vendor System> SIGNED BY: Ezequiel Holder MD 11/26 (Anuj Pinto) Departure Departure Disposition: STILL A PATIENT Condition: Stable Clinical Impression Primary Impression: Cellulitis of leg, right Referrals: Ramona BLANKENSHIP,Shaquille Lopez (PCP/Family) Departure Forms: Customer Survey General Discharge Information Admission Note Spoke With: Swati Enciso MD Documentation of Exam: Documentation of any treatments & extenuating circumstances including Concerns Regarding Discharge (functional status, medication knowledge or non-compliance, living conditions, etc.) that warrant an admission rather than observation: [ Patient requires IV antibiotics repeat labs infectious disease consultation wound care pain management and possible short-term rehabilitation] (Anuj Pinto) PA/TIMBER DEADENER Co-Sign Statement Statement: ED Attending supervision documentation- [x] I saw and evaluated the patient. I have also reviewed all the pertinent lab results and diagnostic results. I agree with the findings and the plan of care as documented in the PA's/TIMBER DEADENER's documentation. 11/26/17, 22:20... pt with cellulitis of right lower extremity, with knee prosthesis.... pt merits iv abx, close follow up. [] I have reviewed the ED Record and agree with the PA's/TIMBER DEADENER's documentation. [] Additions or exceptions (if any) to the PAs/TIMBER DEADENER's note and plan are summarized below: [] (Paul BLANKENSHIP,Abraham Santillan) Critical Care Note Critical Care Note Critical Care Time: 30-74 min (Anuj Pinto)
[2017-11-26 17:03] LABS: ABSOLUTE BASOPHIL COUNT 0.1 /CUMM (0.0-0.2); ABSOLUTE EOSINOPHIL COUNT 0.1 /CUMM (0.0-0.7); ABSOLUTE GRANULOCYTE CT 5.9 /CUMM (1.4-6.5); ABSOLUTE LYMPH COUNT 1.2 /CUMM (1.2-3.4); ABSOLUTE MONOCYTE COUNT 0.6 /CUMM (0.10-0.60); BASOPHIL % 0.7 % (0.0-2.0); EOSINOPHIL % 0.8 % (0-5); GRANULOCYTE % 75.7 % (42.2-75.2); MEAN CORPUSCULAR HGB 34.2 PG (27.0-31.0); MEAN CORPUSCULAR HGB CONC 34.3 G/DL (33.0-37.0); MEAN CORPUSCULAR VOLUME 99.9 FL (80.0-94.0); PLATELET COUNT 110 /CUMM (130-400); WHITE BLOOD CELL COUNT 7.8 /CUMM (4.8-10.8)
--- NOTE | 2017-11-26 18:13 | ULTRASOUND REPORT ---
EXAMINATION: US TRIPLEX LOWER EXTREMITY, RIGHT CLINICAL INFORMATION: Right leg swelling and pain. COMPARISON: Prior ultrasound April 2017 TECHNIQUE: Color-flow triplex imaging with spectral analysis and compression Doppler were performed on the lower extremity. FINDINGS: Respiratory variation, normal compression and augmented flow are noted throughout the lower extremity. The visualized common femoral vein, superficial femoral vein, profunda femoral vein, popliteal vein and midcalf peroneal and posterior tibial venous segments show no evidence of deep venous thrombosis. There is no Julien's cyst. IMPRESSION: Normal triplex scan without evidence of deep venous thrombosis involving the lower extremity.
--- NOTE | 2017-11-26 20:16 | ULTRASOUND REPORT ---
EXAMINATION: US DUPLEX LOWER EXTREMITY ARTERY/GRAFT LIMITED, RIGHT CLINICAL INFORMATION: Right lower extremity numbness/tingling COMPARISON: 08/02/17 TECHNIQUE: Real-time ultrasound and Doppler techniques (integrating B-mode 2-D vascular images, Doppler spectral analysis and color flow Doppler imaging) were utilized to interrogate the lower extremities. FINDINGS: Right lower extremity: Common femoral artery: 91.1 cm/sec; triphasic waveform Superficial femoral artery proximal: 89.7 cm/sec; triphasic waveform Superficial femoral artery mid portion: 156 cm/sec; triphasic waveform Superficial femoral artery distal: 110 cm/sec; triphasic waveform Profunda artery: 61.0 cm/sec; biphasic waveform Popliteal artery: 73.9 cm/sec; triphasic waveform Posterior tibial artery: 49.9 cm/sec; triphasic waveform Anterior tibial artery: 82.5 cm/sec; triphasic waveform Dorsalis pedis artery: 25.5 cm/sec; biphasic waveform ADDITIONAL FINDINGS: None. IMPRESSION: The arteries of the right lower extremity are all patent without significant peripheral arterial disease. Greater sensitivity and specificity can be obtained with pre-and post exercise PVRs with NIKHIL calculations.
[2017-11-26] MEDS ORDERED: NEURONTIN300 M1 PO (20:20)
[2017-11-26] MEDS ORDERED: HYDROMORPHONE HC2 M1 PO (20:21)
--- NOTE | 2017-11-26 22:40 | History & Physical ---
Claudia Valentin MD 11/26/17 2239: General Information and [facility] MD Statement: I have seen and personally examined KIANNA RAMIREZ and documented this H&P. 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 The patient has multiple admissions for cellulitis. The first was in March of last year followed by another admission in July. He had no issues from July until recently. The patient recently had vascular surgery by Dr. Taylor bilaterally a month ago - venous ligation. The patient was supposed to follow up next Wednesday. The patient has had a visiting nurse that helps to dress his wounds 2 times a week , since his March admission. Apparently she saw the wounds 2 days ago and was not concerned but then after seeing him today she suggested that the patient come to the emergency department. The patient also recounts that at 3:00 in the morning he was awoken because "it was really hard to get through the night" due to shooting pains from the knee down to the right toe. He states that he felt as if his toes are going to explode from the pressure. He also notes that his right great toe is also erythematous. The patient admits to bloody leakage on his wound dressings. He also admits to widespread lower extremity numbness most pronounced on the right side. He states that his difficulty walking comes from his inability to feel the ground beneath him. Patient denies fever, chills, abdominal pain, cough, chest pain, shortness of breath, changes in bowel or bladder habits. The patient does admit to some weight gain since last March of about [address] Shaffer is his recreation superintendent and Dr. Rod is his PCP. Family history is pertinent for father with stroke. The patient has been retired since 2005. He has no family in the area, his daughter lives in [place]. However his ex-'s family is very close to him and his ex- is his POA. Her name is Mayte Ramirez. The patient has never smoked or done drugs. He used to have problems with alcohol abuse but has been clean for 3 years. The patient lives alone and ambulates with a walker. Allergies/Medications Allergies: Coded Allergies: bee venom protein (honey bee) (Severe, SEVERE HIVES 05/06/17) heparin (Severe, TONGUE SWELLED 05/06/17) cat dander (Intermediate, ITCH, WHEEZE, SNEEZE, SWOLLEN EYES, RUNNY NOSE ) Penicillins (CHILDHOOD REACTION PER PT 05/06/17) Uncoded Allergies: BLOOD THINNERS (PER PT MD ROD SAID NO BLOOD THINNERS 05/06/17) Home Med list Calcium Carbonate/Vitamin D3 (Calcium 500 + D Tablet) 500 MG-400 TABLET 1 TAB PO DAILY SUPPLEMENT (Reported) Cyanocobalamin (Vitamin B-12) 1,000 MCG TABLET 1 TAB PO DAILY SUPPLEMENT ( Reported) Escitalopram Oxalate 10 MG TABLET 10 MG PO DAILY DEPRESSION (Reported) Ferrous Sulfate 325 MG (65 MG IRON) TABLET 1 TAB PO DAILY SUPPLEMENT ( Reported) Furosemide 40 MG TABLET 60 MG PO BID EDEMA (Reported) Gabapentin (Neurontin) 300 MG CAPSULE 1 CAP PO QHS RLS (Reported) Hydromorphone HCl 2 MG TABLET 1 TAB PO DAILY PRN PAIN (Reported) Magnesium Oxide (Magnesium) 500 MG CAPSULE 1 CAP PO DAILY SUPPLEMENT ( Reported) Nadolol 20 MG TABLET 1 TAB PO DAILY HTN (Reported) Spironolactone (Aldactone) 100 MG TABLET 1 TAB PO DAILY HTN, CIRRHOSIS ( Reported) Compliance With Home Meds: GOOD Past History Travel History Traveled to [place] past 21 day No Medical History Neurological: restless leg syndrome EENT: NONE Cardiovascular: hypertension Respiratory: NONE Gastrointestinal: NONE Hepatic: cirrhosis Renal: NONE Musculoskeletal: RESTLESS LEGS Psychiatric: depression, ETOH ABUSE Endocrine: NONE Blood Disorders: NONE Cancer(s): NONE DUST COLLECTOR/Reproductive: NONE History of MRSA: No History of VRE: No History of CDIFF: No Tetanus Vaccine: 10/06/09 Surgical History Surgical History: R KNEE SURGERY (3) R ARM FX Past Family/Social History Family History Relations & Conditions if any Relation not specified for: *No pertinent family history Psychosocial History Services at Home: None, visiting nursing for wound care Primary Language: Guinean ETOH Use: denies use Living Will? yes Functional Ability ADLs Independent: dressing, eating, toileting, bathing. Ambulation: cane, walker IADLs Independent: shopping, housework, finances, food prep, telephone, transportation , medication admin. Review of Systems Review of Systems Constitutional: Reports: weakness. EENTM: Reports: no symptoms. Cardiovascular: Reports: edema. Respiratory: Reports: no symptoms. GI: Reports: no symptoms. Genitourinary: Reports: no symptoms. Musculoskeletal: Reports: no symptoms. Skin: Reports: see HPI, erythema, lesions. Neurological/Psychological: Reports: no symptoms. Hematologic/Endocrine: Reports: no symptoms. Immunologic/Allergic: Reports: no symptoms. Exam & Diagnostic Data Last 24 Hrs of Vital Signs/I&O Vital Signs Date Time Temp Pulse Resp B/P B/P Pulse O2 O2 Flow FiO2 Mean Ox Delivery Rate 11/27 0054 98.2 62 20 122/82 98 11/26 2313 96.3 64 18 120/76 97 Room Air 11/26 2038 98.0 61 20 123/61 95 Room Air 11/26 1838 99.2 62 18 123/58 96 Room Air 11/26 1538 97 11/26 1533 98.2 68 18 136/64 98 Room Air 11/26 1436 97.8 66 18 129/80 99 Room Air Intake & Output 11/27 0800 11/27 0000 11/26 1600 Intake Total 0 Output Total 100 800 0 Balance -100 -800 0 Intake, Oral 0 Output, Urine 100 800 0 Patient 302 lb Weight Weight Reported by Patient Measurement Method Physical Exam General Appearance Alert, Oriented X3, Cooperative, No Acute Distress Skin No Rashes, bilateral edema. right leg erythema well demarcated with scattered brown macules. warm to touch. tender. Skin Temp/Moisture Exam: Warm/Dry Sepsis Skin Exam (color): Normal for Ethnicity HEENT Atraumatic, PERRLA, EOMI, Mucous Membr. moist/pink Neck Supple Cardiovascular Regular Rate, Normal S1, Normal S2, No Murmurs Lungs Clear to Auscultation Abdomen Normal Bowel Sounds, Soft, No Tenderness, No Hepatospenomegaly, No Masses Neurological Normal Speech, lack of sensation bilaterally lower extremities, worse on left. Extremities No Clubbing, No Cyanosis, Normal Pulses Vascular Normal Pulses, Pulses Symmetrical Sepsis Peripheral Pulse Location: Radial Last 24 Hrs of Labs/Alvin: Laboratory Tests 11/26/17 1843: Lactic Acid Cancelled 11/26/17 1640: Anion Gap 8, Estimated GFR > 60, BUN/Creatinine Ratio 22.0, Glucose 97, Lactic Acid 1.9, Calcium 9.6, Total Bilirubin 2.1 H, AST 26, ALT 24, Alkaline Phosphatase 54, Total Protein 6.7, Albumin 3.5, Globulin 3.2, Albumin/Globulin Ratio 1.1, CBC w Diff NO MAN DIFF REQ, RBC 3.40 L, MCV 99.9 H, MCH 34.2 H, MCHC 34.3, RDW 15.0 H, MPV 8.0, Gran % 75.7 H, Lymphocytes % 15.6 L, Monocytes % 7.2, Eosinophils % 0.8, Basophils % 0.7, Absolute Granulocytes 5.9, Absolute Lymphocytes 1.2, Absolute Monocytes 0.6, Absolute Eosinophils 0.1, Absolute Basophils 0.1 Microbiology 11/26 2343 BLOOD: Blood Culture - ORD 11/26 1640 BLOOD: Blood Culture - RECD 11/26 1543 BLOOD: Blood Culture - CAN Cancelled: Cancelled via OE: UNABLE TO OBTAIN PA AWARE Assessment/Plan Assessment: Patient is a 62-year-old male with a past medical history of cirrhosis secondary to alcohol abuse, aortic valve replacement with bovine valve replacement 10 years ago for k[place] valve infective endocarditis, thrombocytopenia, iron anemia , 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 The patient has multiple admissions for cellulitis. He had a recent venous ligation bilaterally with Dr. Taylor. Labs are unreamarkable with a white count of 7.8, H&H 11/34, LFT unremarkable except for total bili 2.1. UA pending. Venous and arterial doppler ruled out clot & underlying vascular disease. Patient will be admitted to Gen. medical floors for evaluation and treatment of the following: #Recurrent cellulitis: Patient's right lower leg erythema and edema are likely secondary to cellulitis. Ultrasound Doppler showed no DVT and arterial Doppler ruled out underlying vascular disease. Patient does have bilateral lower extremity edema secondary to venous insufficiency and this undoubtedly plays some role. Most likely explanation is that his chronic wounds allowed entry of bacteria and subsequent infection. The concern now is that this infection can spread to his nearby prosthetic knee joint which is susceptible to infection. WBC count is 7.8. Lactic acid is 1.9. -IV cefazolin 1 g every 8h -Blood cultures 2 -Vascular consult with Dr. Camarillo -Prop legs up under 2-3 pillows -Wound consult with Dr. Velazco -Furosemide 40 mg once is given for his chronic bilateral lower extremity edema with standing dose of 60 mg twice a day. -Percocet every 6 for pain #History of cirrhosis secondary to alcohol abuse -Patient is on spiral lactone and nadolol -continue medications -Liver function tests are normal except for elevated bilirubin of 2.1. #Thrombocytopenia -Platelet count is 110 -Avoid heparin Patient is full code Regular diet DVT prophylaxis with Alps As Ranked By This Provider Problem List: 1. Cellulitis of leg, right 2. Bilateral edema of lower extremity Core Measures/Misc (07/04) Acute Coronary Syndrome ACS Diagnosis: No Congestive Heart Failure Congestive Heart Failure Diagnosis No Cerebrovascular Accident CVA/TIA Diagnosis: No VTE (View Protocol) VTE Risk Factors Age>40 No Mechanical VTE Prophylaxis d/t Physical Contraindication No VTE Pharm Prophylaxis d/t NA PharmProphylax ordered Sepsis (View protocol) Sepsis Present: No Rubia Alexander MD 11/26/17 2241: Resident Review Statement Resident Statement: examined this patient, discussed with human resources intern, agreed with human resources intern, discussed with family, reviewed EMR data (avail), discussed with nursing , discussed with case mgmt, reviewed images, amended to note Other Findings: Patient is a 62 YO M with PMH cirrhosis, 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 It started around 2 days ago. He did have a vascualr procedure (vein ligation) a month ago by for both the lower extremities 2 weeks apart. VS are singificant for Tmax of 99, saturating on RA. Physical exam did show erythema and warmth without any open wounds on the right lower extremtiy. Pulses 2 + bilaterally, Nontender to palpation. Heart S1, S2 normal with diastolic mumur, Chest - lungs clear to ausculation with fine crackles at bases. Abd - normal bowel sounds, NT. Labs are unreamarkable with a white count of 7.8, H&H 11/34, LFT unremarkable except for total bili 2.1. UA pending. Venous and arterial doppler ruled out clot & underlying vascualr disease. Follows Dr. Shaffer - cardiology and Dr. Rod Problem list 1. Recurrent cellulitis - secondary to edema vs open wounds vs ? recent manipulation (unlikely) 2. Cirrhosis 3. Replaced right knee joint X3. Plan Admit to general medicine floor Nonpurulent right Lower Extremity Cellulitis This is his 3rd admission for cellulits. Although his lower extremity edema could be a reason, his wounds and underlying vascualr disease could also play a role. As his vascualr pathology is cleared with eventual return of sensation he should be evaluted for role of assisted antibiotics * start cefazolin 1gm Q8 - responeded well previously with cultures negative * Careful monitoring is necessary as it can spread to the right knee joint ( prosthetic) * follow up blood cultures * Wound consult Alcohol related cirrhosis currently stable and continue his home dose of lasix, spironolactone, nadolol. Anemia Continue ferrous sulphate Depression Continue escitalopram DVT prophylaxis ALPS Code status Full code Fernie BLANKENSHIP, [facility] 11/27/17 0738: Attending MD Review Statement Attending Statement Attending MD Statement: examined this patient, discuss w/resident/PA/GRAPHICS SOFTWARE ENGINEER, agreed w/resident/PA/GRAPHICS SOFTWARE ENGINEER, reviewed images, amended to note Attending Assessment/Plan: 62 yo morbidly obese M with h/o cirrhosis with pancytopenia, AVR for enterococcal endocarditis, repeated knee replacements/septic arthritis, PAD, chronic thrombocytopenia, subdural hematoma, chronic bilateral venous insufficiency with chronic wounds, recurrent RLE cellulitis (last admitted Jul 2017), is here for evaluation of right left erythema and pain for past 2 days. He denies any trauma. Patient reports undergoing bilateral lower extremity venous ligation by Dr. Taylor (Oct 2017). Patient has a visiting nurse who comes in twice weekly for dressing change one leg per week. He continues to have reduced sensation in both feet. Vitals stable. Right leg erythema extending from mid calf to just above ankle, some erythema noted to right great toe. No purulence or discharge. Erythema does not extend to the posterior aspect of the leg. Knee joint not involved. Peripheral pulses feeble. No leukocytosis, Platelet 110 (chronic). BUN 22, lactic acid 1.9. LE venous doppler: no DVT. Right LE arterial doppler: patent vessels. EKG: sinus rhythm. Assessment and plan: 1. Recurrent right lower extremity nonpurulent cellulitis 2. Chronic venous insufficiency with leg wounds 3. Alcoholic cirrhosis with pancytopenia 4. Previous repeated right knee replacements and surgeries - Admit to General medicine - Elevate right leg - One dose of IV lasix 60 mg - Blood cultures x 2 - IV cefazolin for now (due to penicillin allergy) - Wound consult (Dr. Mckenzie) - Consider Vascular consult as needed - Pain management with Percocet - Resume PO lasix and spironolactone DVT ppx Alps on his left leg only. Full code.
[2017-11-27 00:54] VITALS: BP 122/82
[2017-11-27 04:08] VITALS: BP 124/68
--- NOTE | 2017-11-27 07:38 | Admission Certification ---
Admission Certification Certification Statement - As attending physician, I certify that at the time of - admission, based on clinical presentation, severity of - symptoms, need for further diagnostic testing and - therapeutic interventions, and risk of adverse outcomes - without in-hospital treatment, in my clinical assessment, - this patient requires an acute hospital stay for a minimum - of two nights or longer. I have also considered psychsocial - factors such as support system, advanced age, financial - issues, cognitive issues, and failed out-patient treatments, - past re-admission history, safety of patient, and lack of - compliance as applicable. Specific rationale supporting this admission is: Right leg cellulitis.
--- NOTE | 2017-11-27 09:39 | PN- Housestaff ---
Claudia Valentin MD 11/27/17 0939: Subjective Follow-up For: recurrent right leg cellulitis history multiple joint replacement secondary to septic joint thrombocytopenia Subjective: Patient feels slightly better after sleeping a little. Still some slight pain in the lower extremity. No complaints otherwise, no events overnight. Review of Systems Constitutional: Reports: no symptoms. Cardiovascular: Reports: no symptoms. Respiratory: Reports: no symptoms. Gastrointestinal: Reports: no symptoms. Musculoskeletal: Reports: muscle pain. Skin: Reports: lesions. Objective Last 24 Hrs of Vital Signs/I&O Vital Signs Date Time Temp Pulse Resp B/P B/P Pulse O2 O2 Flow FiO2 Mean Ox Delivery Rate 11/27 0408 98.1 66 20 124/68 96 11/27 0054 98.2 62 20 122/82 98 11/26 2313 96.3 64 18 120/76 97 Room Air 11/26 2038 98.0 61 20 123/61 95 Room Air 11/26 1838 99.2 62 18 123/58 96 Room Air 11/26 1538 97 11/26 1533 98.2 68 18 136/64 98 Room Air 11/26 1436 97.8 66 18 129/80 99 Room Air Intake & Output 11/27 1600 11/27 0800 11/27 0000 Intake Total 250 350 Output Total 975 1100 Balance -725 -750 Intake, Oral 250 350 Output, Urine 975 1100 Patient 307 lb Weight Weight Bed scale Measurement Method Physical Exam General Appearance: Alert, Oriented X3, Cooperative, No Acute Distress Skin: No Rashes, lower left leg erythema in a well demarcated pattern, traced. warm, tender. patient has decreased sensation in lower legs Skin Temp/Moisture Exam: Warm/Dry Sepsis Skin Exam (color): Normal for Ethnicity Cardiovascular: Regular Rate, Normal S1, Normal S2, No Murmurs Lungs: Clear to Auscultation, Normal Air Movement Abdomen: Normal Bowel Sounds, Soft, No Tenderness Neurological: Normal Speech Extremities: No Clubbing, No Cyanosis, Normal Pulses Current Medications: Current Medications Sig/Clifford Start time Last Medication Dose Route Stop Time Status Admin Calcium/Vitamin D 1 TAB DAILY 11/27 1000 AC 11/27 PO 0848 Cefazolin Sodium 1,000 MG IQ8 11/27 0000 AC 11/27 IV 0844 Cefazolin Sodium 0 .STK-MED ONE 11/26 1630 DC .ROUTE Cefazolin Sodium 1,000 MG ONCE ONE 11/26 1615 DC 11/26 IV 11/26 1616 1647 Cyanocobalamin 1,000 MCG DAILY 11/27 1000 AC 11/27 PO 0848 Escitalopram Oxalate 10 MG DAILY 11/27 1000 AC 11/27 PO 0848 Ferrous Sulfate 325 MG DAILY 11/27 1000 AC 11/27 PO 0848 Furosemide 60 MG BID 11/27 1000 AC 11/27 PO 0848 Furosemide 40 MG ONCE ONE 11/27 0045 DC 11/27 IV 11/27 0046 0136 Gabapentin 300 MG AT BEDTIME 11/27 0015 AC 11/27 PO 0206 Magnesium Oxide 400 MG DAILY 11/27 1000 AC 11/27 PO 0848 Morphine Sulfate 6 MG ONCE ONE 11/26 1630 DC 11/26 IV 11/26 1631 1647 Morphine Sulfate 0 .STK-MED ONE 11/26 163 DC .ROUTE Nadolol 20 MG DAILY 11/27 1000 AC 11/27 PO 0849 Oxycodone/ 2 TAB .STK-MED ONE 11/27 0138 DC Acetaminophen PO 11/27 0139 Oxycodone/ 2 TAB Q6P PRN 11/26 2245 AC 11/27 Acetaminophen PO 0138 Spironolactone 100 MG DAILY 11/27 1000 AC 11/27 PO 0848 Last 24 Hrs of Lab/Alvin Results Last 24 Hrs of Labs/Mics: Laboratory Tests 11/26/17 1843: Lactic Acid Cancelled 11/26/17 1640: Anion Gap 8, Estimated GFR > 60, BUN/Creatinine Ratio 22.0, Glucose 97, Lactic Acid 1.9, Calcium 9.6, Total Bilirubin 2.1 H, AST 26, ALT 24, Alkaline Phosphatase 54, Total Protein 6.7, Albumin 3.5, Globulin 3.2, Albumin/Globulin Ratio 1.1, CBC w Diff NO MAN DIFF REQ, RBC 3.40 L, MCV 99.9 H, MCH 34.2 H, MCHC 34.3, RDW 15.0 H, MPV 8.0, Gran % 75.7 H, Lymphocytes % 15.6 L, Monocytes % 7.2, Eosinophils % 0.8, Basophils % 0.7, Absolute Granulocytes 5.9, Absolute Lymphocytes 1.2, Absolute Monocytes 0.6, Absolute Eosinophils 0.1, Absolute Basophils 0.1 [facility] 11/27 0755 BLOOD: Blood Culture - RECD 11/26 1640 BLOOD: Blood Culture - RECD 11/26 1543 BLOOD: Blood Culture - CAN Cancelled: Cancelled via OE: UNABLE TO OBTAIN PA AWARE Assessment/Plan Assessment: Patient is a 62-year-old male with a past medical history of cirrhosis secondary to alcohol abuse, aortic valve replacement with bovine valve replacement 10 years ago for [place] valve infective endocarditis, thrombocytopenia, iron anemia , 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 The patient has multiple admissions for cellulitis. He had a recent venous ligation bilaterally with Dr. Taylor. Labs are unreamarkable with a white count of 7.8, H&H 11/34, LFT unremarkable except for total bili 2.1. Venous and arterial doppler ruled out clot & underlying vascular disease. UA pending. Patient was admitted to Gen[facility] medical floors for evaluation and treatment of the following: #Recurrent cellulitis: Patient's right lower leg erythema and edema are likely secondary to cellulitis. Ultrasound Doppler showed no DVT and arterial Doppler ruled out underlying vascular disease. Patient does have bilateral lower extremity edema secondary to venous insufficiency and this undoubtedly plays some role. Most likely explanation is that his chronic wounds allowed entry of bacteria and subsequent infection. The concern now is that this infection can spread to his nearby prosthetic knee joint which is susceptible to infection. WBC count is 7.8. Lactic acid is 1.9. -monitor extent of cellulitis with outline drawn on admission -IV cefazolin 1 g every 8h -Blood cultures 2 follow up -Vascular consult with Dr. Taylor is not at this time warranted as patient has patent arterial system on doppler. Consider to place courtesy call. -Prop legs up under 2-3 pillows -Wound consult with Dr. Velazco -Furosemide 40 mg once is given for his chronic bilateral lower extremity edema with standing dose of 60 mg twice a day. -Percocet every 6 for pain #History of cirrhosis secondary to alcohol abuse -Patient is on spironolactone and nadolol -continue medications -Liver function tests are normal except for elevated bilirubin of 2.1. #Thrombocytopenia -Platelet count is 110 -Avoid heparin Patient is full code Regular diet DVT prophylaxis with Alps Problem List: 1. Bilateral edema of lower extremity 2. Cellulitis of leg, right 3. Alcoholic cirrhosis Pain Ratin Pain Location: right lower extremity Pain Goal: Pain 4 or less Pain Plan: percocet Tomorrow's Labs & Rationales: cbc bep Lily Dawson MD 11/27/17 1600: Attending MD Review Statement Attending Statement Attending MD Statement: examined this patient, discuss w/resident/PA/FRESH FOOD MANAGER, agreed w/resident/PA/FRESH FOOD MANAGER, reviewed EMR data (avail), discussed with nursing, discussed with case mgmt, reviewed images, amended to note Attending Assessment/Plan: Patient seen and examined, feels okay. The right lower extremity is still erythematous and painful. Vital Signs Date Time Temp Pulse Resp B/P B/P Pulse O2 O2 Flow FiO2 Mean Ox Delivery Rate 11/27 1501 97.9 59 20 130/68 95 Room Air 11/27 0408 98.1 66 20 124/68 96 11/27 0054 98.2 62 20 122/82 98 11/26 2313 96.3 64 18 120/76 97 Room Air 11/26 2038 98.0 61 20 123/61 95 Room Air 11/26 1838 99.2 62 18 123/58 96 Room Air on exam; aox3, nad cv; s1,s2, rrr resp; clear abd; soft, nt, bs+ ext; no edema. Laboratory Tests 11/27 11/27 1340 1200 Hematology CBC w Diff NO MAN DIFF REQ WBC (4.8 - 10.8 /CUMM) 6.5 RBC (4.70 - 6.10 /CUMM) 3.59 L Hgb (14.0 - 18.0 G/DL) 12.4 L Hct (42 - 52 %) 36.2 L MCV (80.0 - 94.0 FL) 100.8 H MCH (27.0 - 31.0 PG) 34.6 H MCHC (33.0 - 37.0 G/DL) 34.3 RDW (11.5 - 14.5 %) 14.9 H Plt Count (130 - 400 /CUMM) 108 L MPV (7.4 - 10.4 FL) 8.1 Gran % (42.2 - 75.2 %) 59.1 Lymphocytes % (20.5 - 51.1 %) 24.9 Monocytes % (1.7 - 9.3 %) 12.6 H Eosinophils % (0 - 5 %) 2.9 Basophils % (0.0 - 2.0 %) 0.5 Absolute Granulocytes (1.4 - 6.5 /CUMM) 3.9 Absolute Lymphocytes (1.2 - 3.4 /CUMM) 1.6 Absolute Monocytes (0.10 - 0.60 /CUMM) 0.8 H Absolute Eosinophils (0.0 - 0.7 /CUMM) 0.2 Absolute Basophils (0.0 - 0.2 /CUMM) 0 Urines Urine Color (YEL,AMB,STR) YEL Urine Clarity (CLEAR) CLEAR Urine pH (5.0 - 8.0) 6.5 Ur Specific [place] (1.001 - 1.035) 1.015 Urine Protein (NEG,<30 MG/DL) NEG Urine Ketones (NEG) NEG Urine Nitrite (NEG) NEG Urine Bilirubin (NEG) NEG Urine Urobilinogen (0.1 - 1.0 EU/dl) 0.2 Ur Leukocyte Esterase (NEG) NEG Ur Microscopic EXAM NOT REQUIRED Urine Hemoglobin (NEG) NEG Urine Glucose (N MG/DL) NEG 11/26 11/26 1843 1640 Chemistry Sodium (137 - 145 mmol/L) 137 Potassium (3.5 - 5.1 mmol/L) 4.4 Chloride (98 - 107 mmol/L) 101 Carbon Dioxide (22 - 30 mmol/L) 28 Anion Gap (5 - 16) 8 BUN (9 - 20 mg/dL) 22 H Creatinine (0.7 - 1.2 mg/dL) 1.0 Estimated GFR (>60 ml/min) > 60 BUN/Creatinine Ratio (7 - 25 %) 22.0 Glucose (65 - 99 mg/dL) 97 Lactic Acid (0.7 - 2.1 mmol/L) Cancelled 1.9 Calcium (8.4 - 10.2 mg/dL) 9.6 Total Bilirubin (0.2 - 1.3 mg/dL) 2.1 H AST (17 - 59 U/L) 26 ALT (21 - 72 U/L) 24 Alkaline Phosphatase (< 127 U/L) 54 Total Protein (6.3 - 8.2 g/dL) 6.7 Albumin (3.5 - 5.0 g/dL) 3.5 Globulin (1.9 - 4.2 gm/dL) 3.2 Albumin/Globulin Ratio (1.1 - 2.2 %) 1.1 Hematology CBC w Diff NO MAN DIFF REQ WBC (4.8 - 10.8 /CUMM) 7.8 RBC (4.70 - 6.10 /CUMM) 3.40 L Hgb (14.0 - 18.0 G/DL) 11.6 L Hct (42 - 52 %) 34.0 L MCV (80.0 - 94.0 FL) 99.9 H MCH (27.0 - 31.0 PG) 34.2 H MCHC (33.0 - 37.0 G/DL) 34.3 RDW (11.5 - 14.5 %) 15.0 H Plt Count (130 - 400 /CUMM) 110 L MPV (7.4 - 10.4 FL) 8.0 Gran % (42.2 - 75.2 %) 75.7 H Lymphocytes % (20.5 - 51.1 %) 15.6 L Monocytes % (1.7 - 9.3 %) 7.2 Eosinophils % (0 - 5 %) 0.8 Basophils % (0.0 - 2.0 %) 0.7 Absolute Granulocytes (1.4 - 6.5 /CUMM) 5.9 Absolute Lymphocytes (1.2 - 3.4 /CUMM) 1.2 Absolute Monocytes (0.10 - 0.60 /CUMM) 0.6 Absolute Eosinophils (0.0 - 0.7 /CUMM) 0.1 Absolute Basophils (0.0 - 0.2 /CUMM) 0.1 A/P; 62 y/o M with pmh sig for cirrhosis secondary to alcohol abuse, aortic valve replacement with bovine valve replacement 10 years ago for [place] valve infective endocarditis, thrombocytopenia, iron anemia, 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 Venous Doppler and arterial Doppler did not show any significant disease. Patient currently on cefazolin. We'll follow-up on the blood culture. Appreciate wound consult. Continue the rest of the medications. Patient has some thrombocytopenia therefore he is on ALPS for DVT prophylaxis.
--- NOTE | 2017-11-27 10:56 | Cons- Wound Care ---
General Information and HPI Consulting Request Date of Consult: 11/27/17 Requested By: Fernie BLANKENSHIP,Swati Reason for Consult: Right lower extremity cellulitis History of Present Illness: Patient is a 62-year-old with history of cirrhosis valvular heart disease chronic venous insufficiency peripheral vascular disease recurrent cellulitis admitted with right lower extremity cellulitis. He has had intermittent small venous stasis ulcerations present admitted because of increased erythema of his right leg. There is no evidence of DVT. Patient is status post vein closure Allergies/Medications Allergies: Coded Allergies: bee venom protein (honey bee) (Severe, SEVERE HIVES 05/06/17) heparin (Severe, TONGUE SWELLED 05/06/17) cat dander (Intermediate, ITCH, WHEEZE, SNEEZE, SWOLLEN EYES, RUNNY NOSE ) Penicillins (CHILDHOOD REACTION PER PT 05/06/17) Uncoded Allergies: BLOOD THINNERS (PER PT MD ROD SAID NO BLOOD THINNERS 05/06/17) Home Med List: Calcium Carbonate/Vitamin D3 (Calcium 500 + D Tablet) 500 MG-400 TABLET 1 TAB PO DAILY SUPPLEMENT (Reported) Cyanocobalamin (Vitamin B-12) 1,000 MCG TABLET 1 TAB PO DAILY SUPPLEMENT ( Reported) Escitalopram Oxalate 10 MG TABLET 10 MG PO DAILY DEPRESSION (Reported) Ferrous Sulfate 325 MG (65 MG IRON) TABLET 1 TAB PO DAILY SUPPLEMENT ( Reported) Furosemide 40 MG TABLET 60 MG PO BID EDEMA (Reported) Gabapentin (Neurontin) 300 MG CAPSULE 1 CAP PO QHS RLS (Reported) Hydromorphone HCl 2 MG TABLET 1 TAB PO DAILY PRN PAIN (Reported) Magnesium Oxide (Magnesium) 500 MG CAPSULE 1 CAP PO DAILY SUPPLEMENT ( Reported) Nadolol 20 MG TABLET 1 TAB PO DAILY HTN (Reported) Spironolactone (Aldactone) 100 MG TABLET 1 TAB PO DAILY HTN, CIRRHOSIS ( Reported) Past History Travel History Traveled to [place] past 21 day No Medical History Blood Transfusion Hx: No Neurological: restless leg syndrome EENT: NONE Cardiovascular: hypertension Respiratory: NONE Gastrointestinal: NONE Hepatic: cirrhosis Renal: NONE Musculoskeletal: RESTLESS LEGS Psychiatric: depression, ETOH ABUSE Endocrine: NONE Blood Disorders: NONE Cancer(s): NONE RISK REDUCTION COUNSELOR/Reproductive: NONE Surgical History Surgical History: R KNEE SURGERY (3) R ARM FX Family History Relations & Conditions If Any: Relation not specified for: *No pertinent family history Psychosocial History Where Do You Live? Home Services at Home: None, visiting nursing for wound care Primary Language: [place]ralt[place] Smoking Status: Never Smoked ETOH Use: denies use Living Will? yes Functional Ability ADLs Independent: dressing, eating, toileting, bathing. Ambulation: cane, walker IADLs Independent: shopping, housework, finances, food prep, telephone, transportation , medication admin. Exam & Diagnostic Data Vital Signs and I&O Vital Signs Result Date Time Pulse Ox 96 11/27 407 B/P 124/68 11/27 407 Temp 98.1 11/27 040 Pulse 66 11/27 040 Resp 20 11/27 040 O2 Delivery Room Air 11/26 2313 Intake & Output 11/27 0000 11/26 1600 11/26 0800 Intake Total 0 Output Total 800 0 Balance -800 0 Intake, Oral 0 Output, Urine 800 0 Patient 302 lb Weight Weight Reported by Patient Measurement Method There is extensive erythema of the right leg there are several small ulcers with adherent eschar there is no drainage posterior tibial pulses palpable there is pitting edema Assessment/Plan Impression/Plan: 62-year-old gentleman with chronic edema admitted with acute cellulitis of the right lower extremity with several small venous stasis ulcers which have adherent eschar. Recommend leg elevation. Complete course of antibiotics. Xeroform can be applied to lower extremity ulcers. Consult Acknowledgment - Thank you for your consult request.
[2017-11-27 12:28] LABS: ABSOLUTE BASOPHIL COUNT 0 /CUMM (0.0-0.2); ABSOLUTE EOSINOPHIL COUNT 0.2 /CUMM (0.0-0.7); ABSOLUTE GRANULOCYTE CT 3.9 /CUMM (1.4-6.5); ABSOLUTE LYMPH COUNT 1.6 /CUMM (1.2-3.4); ABSOLUTE MONOCYTE COUNT 0.8 /CUMM (0.10-0.60); BASOPHIL % 0.5 % (0.0-2.0); EOSINOPHIL % 2.9 % (0-5); GRANULOCYTE % 59.1 % (42.2-75.2); HEMATOCRIT 36.2 % (42-52); MEAN CORPUSCULAR HGB 34.6 PG (27.0-31.0); MEAN CORPUSCULAR HGB CONC 34.3 G/DL (33.0-37.0); MEAN CORPUSCULAR VOLUME 100.8 FL (80.0-94.0); MEAN PLATELET VOLUME 8.1 FL (7.4-10.4); PLATELET COUNT 108 /CUMM (130-400); RBC DISTRIBUTION WIDTH 14.9 % (11.5-14.5); RED BLOOD CELL CT 3.59 /CUMM (4.70-6.10); WHITE BLOOD CELL COUNT 6.5 /CUMM (4.8-10.8)
[2017-11-27 15:01] VITALS: BP 130/68
[2017-11-27 22:45] VITALS: BP 129/62
[2017-11-28 06:22] VITALS: BP 118/58
[2017-11-28 08:01] LABS: ABSOLUTE BASOPHIL COUNT 0 /CUMM (0.0-0.2); ABSOLUTE EOSINOPHIL COUNT 0.2 /CUMM (0.0-0.7); ABSOLUTE GRANULOCYTE CT 5.1 /CUMM (1.4-6.5); ABSOLUTE LYMPH COUNT 1.8 /CUMM (1.2-3.4); ABSOLUTE MONOCYTE COUNT 0.8 /CUMM (0.10-0.60); BASOPHIL % 0.5 % (0.0-2.0); EOSINOPHIL % 2.5 % (0-5); GRANULOCYTE % 63.7 % (42.2-75.2); HEMATOCRIT 36.8 % (42-52); MEAN CORPUSCULAR HGB 34.7 PG (27.0-31.0); MEAN CORPUSCULAR VOLUME 102.1 FL (80.0-94.0); MEAN PLATELET VOLUME 8.3 FL (7.4-10.4); PLATELET COUNT 114 /CUMM (130-400); RBC DISTRIBUTION WIDTH 14.7 % (11.5-14.5); RED BLOOD CELL CT 3.61 /CUMM (4.70-6.10)
--- NOTE | 2017-11-28 08:46 | PN- Housestaff ---
Vicki BLANKENSHIP,Aiyana 11/28/17 0845: Subjective Follow-up For: Cellulitis right leg, thrombocytopenia Complaints: right ankle pain Subjective: Patient was seen and examined at bedside. He was lying in his bed with both legs elevated. Complains of right ankle pain of 6-8 x 10 in severity. No overnight events. He denies chest pain, cough, shortness of breath, palpitation. Review of Systems Constitutional: Reports: no symptoms. Cardiovascular: Reports: no symptoms. Respiratory: Reports: no symptoms. Gastrointestinal: Reports: no symptoms. Genitourinary: Reports: no symptoms. Musculoskeletal: Reports: no symptoms. Skin: Reports: no symptoms. Objective Last 24 Hrs of Vital Signs/I&O Vital Signs Date Time Temp Pulse Resp B/P B/P Pulse O2 O2 Flow FiO2 Mean Ox Delivery Rate 11/28 0622 97.9 59 20 118/58 93 11/27 2245 97.9 61 20 129/62 96 Room Air 11/27 1501 97.9 59 20 130/68 95 Room Air Intake & Output 11/28 1600 11/28 0800 11/28 0000 Intake Total 350 450 Output Total 400 1000 500 Balance -400 -650 -50 Intake, Oral 350 450 Output, Urine 400 1000 500 Physical Exam General Appearance: Alert, Oriented X3, Cooperative, No Acute Distress, Mild Distress Skin: No Breakdown, No Significant Lesion HEENT: PERRLA Cardiovascular: Normal S1, Normal S2, No Murmurs Lungs: Normal Air Movement Abdomen: Soft, No Tenderness Extremities: bilateral leg edema up to the level of knee. Right leg cellulitis- decreased erythema. Bilateral pulses felt. Advised leg elevation.. Current Medications: Current Medications Sig/Clifford Start time Last Medication Dose Route Stop Time Status Admin Calcium/Vitamin D 1 TAB DAILY 11/27 1000 AC 11/28 PO 0910 Cefazolin Sodium 1,000 MG IQ8 11/27 0000 AC 11/28 IV 0909 Cyanocobalamin 1,000 MCG DAILY 11/27 1000 AC 11/28 PO 0910 Docusate Sodium 100 MG DAILY NEEDED PRN 11/27 2115 AC PO Escitalopram Oxalate 10 MG DAILY 11/27 1000 AC 11/28 PO 0910 Ferrous Sulfate 325 MG DAILY 11/27 1000 AC 11/28 PO 0910 Furosemide 60 MG BID 11/27 1000 AC 11/28 PO 0910 Gabapentin 300 MG AT BEDTIME 11/27 0015 AC 11/27 PO 2038 Magnesium Oxide 400 MG DAILY 11/27 1000 AC 11/28 PO 0910 Morphine Sulfate 2 MG Q6PRN PRN 11/27 2114 AC 11/28 IV 0243 Nadolol 20 MG DAILY 11/27 1000 AC 11/28 PO 0911 Oxycodone/ 2 TAB Q6P PRN 11/26 2245 AC 11/28 Acetaminophen PO 0025 Polyethylene Glycol 17 GM DAILY NEEDED PRN 11/27 2114 AC 11/28 PO 09 Spironolactone 100 MG DAILY 11/27 1000 AC 11/28 PO 0910 Last 24 Hrs of Lab/Alvin Results Last 24 Hrs of Labs/Mics: Laboratory Tests 11/28/17 0710: CBC w Diff NO MAN DIFF REQ, RBC 3.61 L, MCV 102.1 H, MCH 34.7 H, MCHC 34.0, RDW 14.7 H, MPV 8.3, Gran % 63.7, Lymphocytes % 22.9, Monocytes % 10.4 H, Eosinophils % 2.5, Basophils % 0.5, Absolute Granulocytes 5.1, Absolute Lymphocytes 1.8, Absolute Monocytes 0.8 H, Absolute Eosinophils 0.2, Absolute Basophils 0 Assessment/Plan Assessment: Patient is a 62-year-old male with a past medical history of cirrhosis secondary to alcohol abuse, aortic valve replacement with bovine valve replacement 10 years ago for [place] valve infective endocarditis, thrombocytopenia, iron anemia , 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 The patient has multiple admissions for cellulitis. He had a recent venous ligation bilaterally with Dr. Taylor. Labs are unreamarkable with a white count of 7.8, H&H 11/34, LFT unremarkable except for total bili 2.1. Venous and arterial doppler ruled out clot & underlying vascular disease. UA pending. Assessment and plan #Recurrent cellulitis: Patient's right lower leg erythema and edema are likely secondary to cellulitis. Ultrasound Doppler showed no DVT and arterial Doppler ruled out underlying vascular disease. Patient does have bilateral lower extremity edema secondary to venous insufficiency and this undoubtedly plays some role. Most likely explanation is that his chronic wounds allowed entry of bacteria and subsequent infection. The concern now is that this infection can spread to his nearby prosthetic knee joint which is susceptible to infection. WBC count is 8 -monitor extent of cellulitis with outline drawn on admission -Continue IV cefazolin 1 g every 8h -Blood cultures 2 follow up -Vascular consult with Dr. Taylor is not at this time warranted as patient has patent arterial system on doppler. Consider to place courtesy call. -Prop legs up under 2-3 pillows -Follow up Wound consult with Dr. Velazco -Furosemide 40 mg once is given for his chronic bilateral lower extremity edema with standing dose of 60 mg twice a day. -Percocet every 6 for pain #History of cirrhosis secondary to alcohol abuse -Patient is on spironolactone and nadolol -continue medications -Liver function tests are normal except for elevated bilirubin of 2.1. #Thrombocytopenia -Platelet count is 110 -Avoid heparin Patient is full code Regular diet DVT prophylaxis with Alps Problem List: 1. Cellulitis of leg, right 2. Bilateral edema of lower extremity Pain Ratin Pain Location: none Pain Goal: Remain pain free Pain Plan: percocet Tomorrow's Labs & Rationales: cbc,bep Samir BLANKENSHIP,Lily 11/28/17 1431: Attending MD Review Statement Attending Statement Attending MD Statement: examined this patient, discuss w/resident/PA/HUMAN RESOURCES SUPPORT SPECIALIST, agreed w/resident/PA/HUMAN RESOURCES SUPPORT SPECIALIST, reviewed EMR data (avail), discussed with nursing, discussed with case mgmt, reviewed images, amended to note Attending Assessment/Plan: Patient seen and examined, feels the same. Still has some pain in the right lower extremity. Patient remains afebrile. Vital signs are stable. on exam; aox3, nad cv; s1,s2, rrr resp; clear abd; soft, nt, bs+ ext; right lower extremity has erythema. Seems to be improving. Laboratory Tests 11/28 0710 Hematology CBC w Diff NO MAN DIFF REQ WBC (4.8 - 10.8 /CUMM) 8.0 RBC (4.70 - 6.10 /CUMM) 3.61 L Hgb (14.0 - 18.0 G/DL) 12.5 L Hct (42 - 52 %) 36.8 L MCV (80.0 - 94.0 FL) 102.1 H MCH (27.0 - 31.0 PG) 34.7 H MCHC (33.0 - 37.0 G/DL) 34.0 RDW (11.5 - 14.5 %) 14.7 H Plt Count (130 - 400 /CUMM) 114 L MPV (7.4 - 10.4 FL) 8.3 Gran % (42.2 - 75.2 %) 63.7 Lymphocytes % (20.5 - 51.1 %) 22.9 Monocytes % (1.7 - 9.3 %) 10.4 H Eosinophils % (0 - 5 %) 2.5 Basophils % (0.0 - 2.0 %) 0.5 Absolute Granulocytes (1.4 - 6.5 /CUMM) 5.1 Absolute Lymphocytes (1.2 - 3.4 /CUMM) 1.8 Absolute Monocytes (0.10 - 0.60 /CUMM) 0.8 H Absolute Eosinophils (0.0 - 0.7 /CUMM) 0.2 Absolute Basophils (0.0 - 0.2 /CUMM) 0 A/P; 62 y/o M with pmh sig for cirrhosis secondary to alcohol abuse, aortic valve replacement with bovine valve replacement 10 years ago for [place] valve infective endocarditis, thrombocytopenia, iron anemia, 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 White blood cell count remains normal. Venous Doppler and arterial Doppler did not show any significant disease. Patient currently on cefazolin. We'll follow -up on the blood culture. Appreciate wound consult. Continue the rest of the medications. Patient has some thrombocytopenia therefore he is on ALPS for DVT prophylaxis. Please order PT eval.
[2017-11-28 14:50] VITALS: BP 120/62
[2017-11-28 23:22] VITALS: BP 108/64
[2017-11-29 07:15] VITALS: BP 110/54
[2017-11-29 08:13] LABS: ABSOLUTE BASOPHIL COUNT 0 /CUMM (0.0-0.2); ABSOLUTE EOSINOPHIL COUNT 0.2 /CUMM (0.0-0.7); ABSOLUTE GRANULOCYTE CT 5.3 /CUMM (1.4-6.5); ABSOLUTE LYMPH COUNT 1.8 /CUMM (1.2-3.4); ABSOLUTE MONOCYTE COUNT 0.9 /CUMM (0.10-0.60); BASOPHIL % 0.4 % (0.0-2.0); EOSINOPHIL % 2.2 % (0-5); HEMATOCRIT 36.4 % (42-52); MEAN CORPUSCULAR HGB 34.7 PG (27.0-31.0); MEAN CORPUSCULAR HGB CONC 34.3 G/DL (33.0-37.0); MEAN PLATELET VOLUME 8.1 FL (7.4-10.4); PLATELET COUNT 115 /CUMM (130-400); RBC DISTRIBUTION WIDTH 14.9 % (11.5-14.5); RED BLOOD CELL CT 3.61 /CUMM (4.70-6.10); WHITE BLOOD CELL COUNT 8.3 /CUMM (4.8-10.8)
--- NOTE | 2017-11-29 08:13 | PN- Housestaff ---
Barbie BLANKENSHIP,Claudia 11/29/17812: Subjective Follow-up For: Cellulitis right leg, thrombocytopenia Subjective: patient seen today and notes that he feels "a little bit better but my leg still looks the same". Review of Systems Constitutional: Reports: no symptoms. Cardiovascular: Reports: no symptoms. Respiratory: Reports: no symptoms. Gastrointestinal: Reports: no symptoms. Genitourinary: Reports: no symptoms. Objective Last 24 Hrs of Vital Signs/I&O Vital Signs Date Time Temp Pulse Resp B/P B/P Pulse O2 O2 Flow FiO2 Mean Ox Delivery Rate 11/29 917 76 134/86 11/29 0715 98.4 68 18 110/54 94 Room Air 11/28 2322 98.5 71 20 108/64 95 Room Air Intake & Output 11/29 1600 11/29 0800 11/29 0000 Intake Total 480 480 Output Total 450 Balance 480 30 Intake, Oral 480 480 Number 1 Bowel Movements Output, Urine 450 Physical Exam General Appearance: Alert, Oriented X3, Cooperative, No Acute Distress Skin Temp/Moisture Exam: Warm/Dry Sepsis Skin Exam (color): Normal for Ethnicity HEENT: Atraumatic Cardiovascular: Regular Rate, Normal S1, Normal S2, No Murmurs Lungs: Clear to Auscultation, Normal Air Movement Abdomen: Normal Bowel Sounds, Soft, No Tenderness Neurological: Normal Speech Extremities: No Clubbing, No Cyanosis, Normal Pulses, left lower extremity erythema and edema. area is well demarcated and is only very slightly better than admission. Current Medications: Current Medications Sig/Clifford Start time Last Medication Dose Route Stop Time Status Admin Calcium/Vitamin D 1 TAB DAILY 11/27 1000 AC 11/29 PO 917 Cefazolin Sodium 1,000 MG IQ8 11/27 0000 AC 11/29 IV 0919 Cyanocobalamin 1,000 MCG DAILY 11/27 1000 AC 11/29 PO 18 Docusate Sodium 100 MG DAILY NEEDED PRN 11/27 2114 AC PO Escitalopram Oxalate 10 MG DAILY 11/27 1000 AC 11/29 PO 917 Ferrous Sulfate 325 MG DAILY 11/27 1000 AC 11/29 PO 18 Furosemide 60 MG BID 11/27 1000 DC 11/29 PO 18 Gabapentin 300 MG AT BEDTIME 11/27 0015 AC 11/28 PO 2058 Magnesium Oxide 400 MG DAILY 11/27 1000 AC 11/29 PO 0918 Morphine Sulfate 2 MG Q6PRN PRN 11/27 2114 AC 11/29 IV 1232 Nadolol 20 MG DAILY 11/27 1000 AC 11/29 PO 0918 Oxycodone/ 2 TAB Q6P PRN 11/26 2245 AC 11/29 Acetaminophen PO 0824 Polyethylene Glycol 17 GM DAILY NEEDED PRN 11/27 2114 AC 11/28 PO 0910 Spironolactone 100 MG DAILY 11/27 1000 AC 11/29 PO 0918 Last 24 Hrs of Lab/Alvin Results Last 24 Hrs of Labs/Mics: Laboratory Tests 11/29/17 0740: CBC w Diff NO MAN DIFF REQ, RBC 3.61 L, MCV 101.0 H, MCH 34.7 H, MCHC 34.3, RDW 14.9 H, MPV 8.1, Gran % 64.0, Lymphocytes % 22.2, Monocytes % 11.2 H, Eosinophils % 2.2, Basophils % 0.4, Absolute Granulocytes 5.3, Absolute Lymphocytes 1.8, Absolute Monocytes 0.9 H, Absolute Eosinophils 0.2, Absolute Basophils 0 11/29/17 0642: Anion Gap 9, Estimated GFR 44 L, BUN/Creatinine Ratio 19.4 Assessment/Plan Assessment: Patient is a 62-year-old male with a past medical history of cirrhosis secondary to alcohol abuse, aortic valve replacement with bovine valve replacement 10 years ago for [place] valve infective endocarditis, thrombocytopenia, iron anemia , 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 The patient has multiple admissions for cellulitis. He had a recent venous ligation bilaterally with Dr. Taylor. Labs are unreamarkable with a white count of 7.8, H&H 11/34, LFT unremarkable except for total bili 2.1. Venous and arterial doppler ruled out clot & underlying vascular disease. UA pending. Assessment and plan #Recurrent cellulitis: Patient's right lower leg erythema and edema are likely secondary to cellulitis. Ultrasound Doppler showed no DVT and arterial Doppler ruled out underlying vascular disease. Patient does have bilateral lower extremity edema secondary to venous insufficiency and this undoubtedly plays some role. Most likely explanation is that his chronic wounds allowed entry of bacteria and subsequent infection. The concern now is that this infection can spread to his nearby prosthetic knee joint which is susceptible to infection. WBC count is 8.3 today. -monitor extent of cellulitis with outline drawn on admission- today, cellulitis has only shrunk a small amount. -Continue IV cefazolin 1 g every 8h -Blood cultures 2 follow up -Vascular consult with Dr. Taylor is not at this time warranted as patient has patent arterial system on doppler. Consider to place courtesy call. Patient is to follow up with him outpatient for previous venous ligation. -As per Dr. Velazco, wound care, elevate legs and xeroform on any open wounds. -Furosemide 40 mg once was given for his chronic bilateral lower extremity edema with standing dose of 60 mg twice a day. However, today, patient was noted to have a Cr that went from normal to 1.6. Vitals normal today. Patient does not have overt signs of dehydration on exam. We will stop the lasix for now, continue the spirolonlactone which he takes for advanced cirrhosis (the cause of his increased bili) and monitor bep tomorrow and reevaluate. -Percocet every 6 for pain #History of cirrhosis secondary to alcohol abuse -Patient is on spironolactone and nadolol -continue medications -Liver function tests are normal except for elevated bilirubin of 2.1. #Thrombocytopenia -Platelet count is 114 today -Avoid heparin Patient is full code Regular diet DVT prophylaxis with Alps Problem List: 1. Cellulitis of leg, right Pain Ratin Pain Location: right lower leg pain Pain Goal: Pain 4 or less Pain Plan: percocet Tomorrow's Labs & Rationales: cbc William Callahan 11/29/17 1402: Attending MD Review Statement Attending Statement Attending MD Statement: examined this patient, discuss w/resident/PA/CALENDER MACHINE OPERATOR HELPER, agreed w/resident/PA/CALENDER MACHINE OPERATOR HELPER, discussed with family, reviewed EMR data (avail), discussed with nursing, discussed with case mgmt, reviewed images, amended to note Attending Assessment/Plan: A/P; 62 y/o M with h sig for cirrhosis secondary to alcohol abuse, aortic valve replacement with bovine valve replacement 10 years ago for [place] valve infective endocarditis, thrombocytopenia, iron anemia, 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 Venous Doppler and arterial Doppler did not show any significant disease. Patient can be switched to PO abx. negative blood culture. f/u wound consult. Hold lasix in view of elevated creatinine 2/2 IVVD. Monitor creatinine. Patient has some thrombocytopenia therefore he is on ALPS for DVT prophylaxis.
[2017-11-29 15:29] VITALS: BP 120/70
[2017-11-29 21:27] VITALS: BP 110/62
[2017-11-30 06:14] VITALS: BP 106/58
--- NOTE | 2017-11-30 07:49 | PN- Housestaff ---
Win Parra MD,[facility] 11/30/17 0749: Subjective Follow-up For: Cellulitis right leg thrombocytopenia Cirrhosis Subjective: Patient visited today, was sitting at the bedside comfortably in no acute distress, right leg was in eleveated position was alert and oriented. He reported no fever or chills, no shortness of breathing, no chest pain, no other events. Was asking about how to prevent future episoded of cellulitis. Instucted regarding preventing injury to the leg. Review of Systems Constitutional: Reports: see HPI. Objective Last 24 Hrs of Vital Signs/I&O Vital Signs Date Time Temp Pulse Resp B/P B/P Pulse O2 O2 Flow FiO2 Mean Ox Delivery Rate 11/30 0614 98.0 57 20 106/58 95 11/29 2127 97.9 60 18 110/62 95 Room Air 11/29 1529 98.2 66 20 120/70 94 Room Air Intake & Output 11/30 1600 11/30 0800 11/30 0000 Intake Total 480 240 Output Total 150 Balance 330 240 Intake, Oral 480 240 Output, Urine 150 Patient 307 lb Weight Physical Exam General Appearance: Alert, Oriented X3, Cooperative, No Acute Distress Skin: bilateral leg skin changes, erythema Skin Temp/Moisture Exam: Warm/Dry HEENT: Atraumatic, EOMI, Mucous Membr. moist/pink Cardiovascular: Regular Rate, Normal S1, Normal S2, systolic murmur Lungs: Clear to Auscultation Abdomen: Soft, No Tenderness Neurological: Normal Speech, Strength at 5/5 X4 Ext, Cranial Nerves 3-12 NL, grossly normal, no change compared to yesterday Extremities: bilateral LE edema, erythema bilateral, right leg > left, decreased in comparsion to markings Current Medications: Current Medications Sig/Clifford Start time Last Medication Dose Route Stop Time Status Admin Calcium/Vitamin D 1 TAB DAILY 11/27 1000 AC 11/30 PO 0946 Cefazolin Sodium 1,000 MG IQ8 11/27 0000 DC 11/30 IV 0946 Cephalexin 500 MG BID 11/30 1430 AC PO Cyanocobalamin 1,000 MCG DAILY 11/27 1000 AC 11/30 PO 0946 Docusate Sodium 100 MG DAILY NEEDED PRN 11/27 2115 AC PO Escitalopram Oxalate 10 MG DAILY 11/27 1000 AC 11/30 PO 0946 Ferrous Sulfate 325 MG DAILY 11/27 1000 AC 11/30 PO 0946 Furosemide 60 MG DAILY 11/30 1000 AC 11/30 PO 0949 Gabapentin 300 MG AT BEDTIME 11/27 0015 AC 11/29 PO 8 Magnesium Oxide 400 MG DAILY 11/27 1000 AC 11/30 PO 0946 Morphine Sulfate 2 MG Q6PRN PRN 11/27 2114 AC 11/29 IV 1232 Nadolol 20 MG DAILY 11/27 1000 AC 11/30 PO 0946 Oxycodone/ 2 TAB Q6P PRN 11/265 AC 11/30 Acetaminophen PO 0950 Polyethylene Glycol 17 GM DAILY NEEDED PRN 11/27 2114 AC 11/28 PO 0910 Spironolactone 100 MG DAILY 11/27 1000 AC 11/30 PO 0946 Last 24 Hrs of Lab/Alvin Results Last 24 Hrs of Labs/Mics: Laboratory Tests 11/30/17 0740: Anion Gap 9, Estimated GFR 47 L, BUN/Creatinine Ratio 25.3 H, CBC w Diff NO MAN DIFF REQ, RBC 3.62 L, MCV 100.7 H, MCH 34.9 H, MCHC 34.6, RDW 15.0 H, MPV 8.4, Gran % 65.4, Lymphocytes % 21.1, Monocytes % 10.3 H, Eosinophils % 2.8 , Basophils % 0.4, Absolute Granulocytes 5.8, Absolute Lymphocytes 1.9, Absolute Monocytes 0.9 H, Absolute Eosinophils 0.2, Absolute Basophils 0 Assessment/Plan Assessment: Patient is a 62-year-old male with a past medical history of cirrhosis secondary to alcohol abuse, aortic valve replacement with bovine valve replacement 10 years ago for [place] valve infective endocarditis, thrombocytopenia, iron anemia , 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 The patient has multiple admissions for cellulitis. He had a recent venous ligation bilaterally with Dr. Taylor. Labs are unreamarkable with a white count of 7.8, H&H 11/34, LFT unremarkable except for total bili 2.1. Venous and arterial doppler ruled out clot & underlying vascular disease. UA pending. patient was admitted to floor for management of followin conditions: Recurrent cellulitis: Patient's right lower leg erythema and edema are likely secondary to cellulitis. Ultrasound Doppler showed no DVT and arterial Doppler ruled out underlying vascular disease. Patient does have bilateral lower extremity edema secondary to venous insufficiency and this undoubtedly plays some role. Most likely explanation is that his chronic wounds allowed entry of bacteria and subsequent infection. Patient was concerned that this infection can spread to his nearby prosthetic knee joint which is susceptible to infection. Blood cultures stayed negative. Patient recieved IV cefazoline initially, with improvement was changed to oral keflex. Extent of cellulitis was daily monitored with outline drawn on admission which showed daily improvement. Vascular consult with Dr. Taylor was not at this time warranted as patient has patent arterial system on doppler. Patient needs to follow up with him outpatient for previous venous ligation. - start oral keflex - As per Dr. Velazco, wound care, elevate legs and xeroform on any open wounds. - Patient was given increased dose of lasix to 60mg bid, was temprorily held due to in - Percocet was changed to home medication of dilaudid History of cirrhosis secondary to alcohol abuse Patient is on spironolactone and nadolol -continue medications -Liver function tests are normal except for elevated bilirubin of 2.1. Thrombocytopenia -Platelet count is 114 today -Avoid heparin Patient is full code Regular diet DVT prophylaxis with Alps Problem List: 1. Alcoholic cirrhosis 2. Cellulitis Pain Ratin Pain Location: None Pain Goal: Pain 4 or less Pain Plan: Changed percocet to dilaudid Tomorrow's Labs & Rationales: CBC BEP William Callahan 11/30/17 1413: Attending MD Review Statement Attending Statement Attending MD Statement: examined this patient, discuss w/resident/PA/GEODETIC SURVEY DIRECTOR, agreed w/resident/PA/GEODETIC SURVEY DIRECTOR, discussed with family, reviewed EMR data (avail), discussed with nursing, discussed with case mgmt, reviewed images, amended to note Attending Assessment/Plan: A/P; 62 y/o M with pmh sig for cirrhosis secondary to alcohol abuse, aortic valve replacement with bovine valve replacement 10 years ago for [place] valve infective endocarditis, thrombocytopenia, iron anemia, 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 Venous Doppler and arterial Doppler did not show any significant disease. Patient switched to PO abx. negative blood culture. f/u wound consult. Reduced lasix in view of elevated creatinine 2/2 IVVD whisch appears to be stabilising. Monitor creatinine. Patient has some thrombocytopenia therefore he is on ALPS for DVT prophylaxis. FOLLOW UP PCP in 3-5 days of discharge. Wound care center in 1-2 weeks of discharge.
[2017-11-30 08:35] LABS: ABSOLUTE BASOPHIL COUNT 0 /CUMM (0.0-0.2); ABSOLUTE EOSINOPHIL COUNT 0.2 /CUMM (0.0-0.7); ABSOLUTE GRANULOCYTE CT 5.8 /CUMM (1.4-6.5); ABSOLUTE LYMPH COUNT 1.9 /CUMM (1.2-3.4); ABSOLUTE MONOCYTE COUNT 0.9 /CUMM (0.10-0.60); BASOPHIL % 0.4 % (0.0-2.0); EOSINOPHIL % 2.8 % (0-5); GRANULOCYTE % 65.4 % (42.2-75.2); HEMATOCRIT 36.4 % (42-52); MEAN CORPUSCULAR HGB 34.9 PG (27.0-31.0); MEAN CORPUSCULAR HGB CONC 34.6 G/DL (33.0-37.0); MEAN CORPUSCULAR VOLUME 100.7 FL (80.0-94.0); MEAN PLATELET VOLUME 8.4 FL (7.4-10.4); PLATELET COUNT 120 /CUMM (130-400); RED BLOOD CELL CT 3.62 /CUMM (4.70-6.10); WHITE BLOOD CELL COUNT 8.9 /CUMM (4.8-10.8)
[2017-11-30 14:40] VITALS: BP 120/60
[2017-11-30 23:32] VITALS: BP 120/80
[2017-12-01 06:38] VITALS: BP 116/58
--- NOTE | 2017-12-01 08:22 | PN- Housestaff ---
See Addendum Marvin BLANKENSHIP,Alexys 12/01/17 0821: Subjective Follow-up For: RLE cellulitis Subjective: No acute events overnight. Pt complaining of itchyness. States RLE cellulitis erythema improved. Was going to get discharged this afternoon however family concerned regarding his drowsiness after benadryl and states his cellulitis looks worst than when he first presented. Review of Systems Constitutional: Reports: no symptoms. Cardiovascular: Reports: no symptoms. Respiratory: Reports: no symptoms. Gastrointestinal: Reports: no symptoms. Genitourinary: Reports: no symptoms. Musculoskeletal: Reports: see HPI (RLE cellulitis). Objective Last 24 Hrs of Vital Signs/I&O Vital Signs Date Time Temp Pulse Resp B/P B/P Pulse O2 O2 Flow FiO2 Mean Ox Delivery Rate 12/01 2213 98.3 59 20 112/68 97 Room Air 12/01 1421 97.6 68 18 116/70 93 12/01 1007 64 110/60 12/01 0638 97.9 63 18 116/58 94 Intake & Output 12/02 0800 12/02 0000 12/01 1600 Intake Total 740 Output Total 1 250 Balance -1 490 Intake, Oral 740 Number 0 Bowel Movements Output, Stool 1 Output, Urine 250 Physical Exam General Appearance: Alert, Cooperative, No Acute Distress Skin: RLE cellulitis, purple discoloration. no extension of cellulitis above original markings Cardiovascular: Regular Rate, Normal S1, Normal S2 Lungs: Clear to Auscultation, Normal Air Movement Abdomen: Normal Bowel Sounds, Soft, No Tenderness Extremities: 2+ radial pulses Current Medications: Current Medications Sig/Clifford Start time Last Medication Dose Route Stop Time Status Admin Acetaminophen 500 MG ONCE ONE 12/01 0645 DC 12/01 PO 12/01 0646 1005 Calcium/Vitamin D 1 TAB DAILY 11/27 1000 AC 12/01 PO 1004 Cephalexin 500 MG BID 11/30 1430 AC 12/01 PO 2105 Cyanocobalamin 1,000 MCG DAILY 11/27 1000 AC 12/01 PO 1005 Diphenhydramine HCl 50 MG ONCE ONE 12/01 1030 DC 12/01 PO 12/01 1031 1135 Docusate Sodium 100 MG DAILY NEEDED PRN 11/27 2115 AC PO Escitalopram Oxalate 10 MG DAILY 11/27 1000 AC 12/01 PO 1003 Ferrous Sulfate 325 MG DAILY 11/27 1000 AC 12/01 PO 1004 Furosemide 60 MG DAILY 11/30 1000 AC 12/01 PO 1004 Gabapentin 300 MG AT BEDTIME 11/27 0015 AC 12/01 PO 2105 Hydromorphone HCl 2 MG Q8 PRN 11/30 2100 AC 11/30 PO 2058 Magnesium Oxide 400 MG DAILY 11/27 1000 AC 12/01 PO 1005 Morphine Sulfate 2 MG Q6PRN PRN 11/27 2114 AC 11/30 IV 1740 Nadolol 20 MG DAILY 11/27 1000 AC 12/01 PO 1007 Patient Medication 1 ED ONE ONE 12/01 1200 DC 12/01 Teaching ED 12/01 1201 1450 Polyethylene Glycol 17 GM DAILY NEEDED PRN 11/27 2114 AC 11/28 PO 0910 Spironolactone 100 MG DAILY 11/27 1000 AC 12/01 PO 1002 Last 24 Hrs of Lab/Alvin Results Last 24 Hrs of Labs/Mics: Laboratory Tests 12/01/17 0715: Anion Gap 8, Estimated GFR 51 L, BUN/Creatinine Ratio 33.6 H, CBC w Diff NO MAN DIFF REQ, RBC 3.72 L, MCV 101.3 H, MCH 34.8 H, MCHC 34.3, RDW 15.0 H, MPV 8.5, Gran % 63.8, Lymphocytes % 21.6, Monocytes % 11.2 H, Eosinophils % 2.8 , Basophils % 0.6, Absolute Granulocytes 5.4, Absolute Lymphocytes 1.8, Absolute Monocytes 1.0 H, Absolute Eosinophils 0.2, Absolute Basophils 0.1 Assessment/Plan Assessment: Patient is a 62-year-old male with a past medical history of cirrhosis secondary to alcohol abuse, aortic valve replacement with bovine valve replacement 10 years ago for [place] valve infective endocarditis, thrombocytopenia, iron anemia , 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 The patient has multiple admissions for cellulitis. He had a recent venous ligation bilaterally with Dr. Taylor. Labs are unreamarkable with a white count of 7.8, H&H 11/34, LFT unremarkable except for total bili 2.1. Venous and arterial doppler ruled out clot & underlying vascular disease. UA pending. patient was admitted to [facility] floor for management of followin conditions: Recurrent cellulitis: Patient's right lower leg erythema and edema are likely secondary to cellulitis. Ultrasound Doppler showed no DVT and arterial Doppler ruled out underlying vascular disease. Patient does have bilateral lower extremity edema secondary to venous insufficiency and this undoubtedly plays some role. Most likely explanation is that his chronic wounds allowed entry of bacteria and subsequent infection. Patient was concerned that this infection can spread to his nearby prosthetic knee joint which is susceptible to infection. Blood cultures stayed negative. Patient recieved IV cefazoline initially, with improvement was changed to oral keflex. Extent of cellulitis was daily monitored with outline drawn on admission which showed daily improvement. Vascular consult with Dr. Taylor was not at this time warranted as patient has patent arterial system on doppler. Patient needs to follow up with him outpatient for previous venous ligation. -remains to be afebrile without leukocytosis -Patient was cleared medically to be dischareged today but family concerned regarding mental status after benadryl and no improvement of RLE cellutlis - continue oral keflex - As per Dr. Velazco, wound care, elevate legs and xeroform on any open wounds. - Patient was given increased dose of lasix to 60mg bid, was temprorily held due - Percocet was changed to home medication of dilaudid Mild anemia H/H stable at 12.9/37.6 (base line ) -cont to monitor SRINIVAS Cr 1.4 (from 1.6), baseline 1.0 -cont to monitor History of cirrhosis secondary to alcohol abuse Patient is on spironolactone and nadolol -continue medications -Liver function tests are normal except for elevated bilirubin of 2.1. Thrombocytopenia -Platelet count is 120 today -Avoid heparin Patient is full code Regular diet DVT prophylaxis with Alps Problem List: 1. Peripheral vascular disease 2. Cellulitis of leg, right Pain Ratin Pain Location: none Pain Goal: Pain 4 or less Pain Plan: pain pathway Tomorrow's Labs & Rationales: cbc bep [place] g[place] 12/01/17 1245: Attending Review Statement Attending Statement Attending MD Statement: examined this patient, discuss w/resident/PA/SUPERVISOR INSPECTION DEPARTMENT, agreed w/resident/PA/SUPERVISOR INSPECTION DEPARTMENT, discussed with family, reviewed EMR data (avail), discussed with nursing, discussed with case mgmt, reviewed images, amended to note Attending Assessment/Plan: A/P; 62 y/o M with pmh sig for cirrhosis secondary to alcohol abuse, aortic valve replacement with bovine valve replacement 10 years ago for [place] valve infective endocarditis, thrombocytopenia, iron anemia, 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 Venous Doppler and arterial Doppler did not show any significant disease. Patient switched to PO abx. negative blood culture. f/u wound consult. Reduced lasix in view of elevated creatinine 2/2 IVVD whisch appears to be stabilising. Monitor creatinine. Patient has some thrombocytopenia therefore he is on ALPS for DVT prophylaxis. FOLLOW UP PCP in 3-5 days of discharge. Wound care center in 1-2 weeks of discharge.
[2017-12-01 08:31] LABS: ABSOLUTE BASOPHIL COUNT 0.1 /CUMM (0.0-0.2); ABSOLUTE EOSINOPHIL COUNT 0.2 /CUMM (0.0-0.7); ABSOLUTE GRANULOCYTE CT 5.4 /CUMM (1.4-6.5); ABSOLUTE LYMPH COUNT 1.8 /CUMM (1.2-3.4); BASOPHIL % 0.6 % (0.0-2.0); EOSINOPHIL % 2.8 % (0-5); GRANULOCYTE % 63.8 % (42.2-75.2); HEMATOCRIT 37.6 % (42-52); MEAN CORPUSCULAR HGB 34.8 PG (27.0-31.0); MEAN CORPUSCULAR HGB CONC 34.3 G/DL (33.0-37.0); MEAN CORPUSCULAR VOLUME 101.3 FL (80.0-94.0); MEAN PLATELET VOLUME 8.5 FL (7.4-10.4); PLATELET COUNT 119 /CUMM (130-400); RED BLOOD CELL CT 3.72 /CUMM (4.70-6.10); WHITE BLOOD CELL COUNT 8.5 /CUMM (4.8-10.8)
[2017-12-01] MEDS ORDERED: MIRALAX119 GM PO (14:06)
[2017-12-01] MEDS ORDERED: DOCUSATE SODIU100 M3 PO (14:06)
--- NOTE | 2017-12-01 14:11 | Patient Discharge Instructions ---
See Addendum Discharge Instructions General Discharge Information You were seen/treated for: Right lower extremity cellulitis Special Instructions: Please follow-up with your primary care provider within 3-5 days of discharge and follow up with wound care center in 1-2 weeks of discharge. Please follow-up with vascular surgery service after discharge. Please discuss your blood work with her primary care physician and possibility to get a referral with her it infrastructure consultant/blood doctor. Please return to emergency if symptoms worsen Diet Continue normal diet: Yes Recommended Diet: Heart Healthy Activity Full Activity/No Limits: No Activity Self Limited: Yes (RT LEG ELEVATION RECOMMENDED) Acute Coronary Syndrome Inclusion Criteria At DC or during hospital stay patient has or had the following: ACS DIAGNOSIS No Discharge Core Measures Meds if any: Prescribed or Continued at Discharge Meds if any: NOT Prescribed or Continued at Discharge Congestive Heart Failure Inclusion Criteria At DC or during hospital stay patient has or had the following: CHF DIAGNOSIS No Discharge Core Measures Meds if any: Prescribed or Continued at Discharge Meds if any: NOT Prescribed or Continued at Discharge Cerebrovascular accident Inclusion Criteria At DC or during hospital stay patient has or had the following: CVA/TIA Diagnosis No Discharge Core Measures Meds if any: Prescribed or Continued at Discharge Meds if any: NOT Prescribed or Continued at Discharge Venous thromboembolism Inclusion Criteria VTE Diagnosis No VTE Type NONE VTE Confirmed by (Test) NONE Discharge Core Measures - Per Current guidelines, there needs to be overlap - treatment for the first 5 days of Warfarin therapy. - If discharged on Warfarin prior to 5 days of - overlap therapy, the patient will need to be - assessed for post discharge needs including - *Post discharge parental anticoagulation - *Warfarin and/or parental anticoagulation education - *Follow up date to check INR post discharge At least 5 days overlap therapy as Inpatient No Meds if any: Prescribed or Continued at Discharge Note: Overlap Therapy is Warfarin and Anticoagulant Meds if any: NOT Prescribed or Continued at Discharge
[2017-12-01] MEDS ORDERED: CEPHALEXIN500 M3 PO (14:17)
[2017-12-01 14:21] VITALS: BP 116/70
[2017-12-01] MEDS ORDERED: PROBIOTIC1 EACH PO (14:40)
[2017-12-01 22:13] VITALS: BP 112/68
[2017-12-02 06:43] VITALS: BP 126/80
[2017-12-02 08:17] LABS: ABSOLUTE BASOPHIL COUNT 0 /CUMM (0.0-0.2); ABSOLUTE EOSINOPHIL COUNT 0.2 /CUMM (0.0-0.7); ABSOLUTE GRANULOCYTE CT 5.9 /CUMM (1.4-6.5); ABSOLUTE LYMPH COUNT 1.7 /CUMM (1.2-3.4); ABSOLUTE MONOCYTE COUNT 0.8 /CUMM (0.10-0.60); BASOPHIL % 0.3 % (0.0-2.0); EOSINOPHIL % 2.3 % (0-5); HEMATOCRIT 33.8 % (42-52); MEAN CORPUSCULAR HGB CONC 34.9 G/DL (33.0-37.0); MEAN CORPUSCULAR VOLUME 100.4 FL (80.0-94.0); MEAN PLATELET VOLUME 8.3 FL (7.4-10.4); PLATELET COUNT 104 /CUMM (130-400); RBC DISTRIBUTION WIDTH 14.6 % (11.5-14.5); RED BLOOD CELL CT 3.37 /CUMM (4.70-6.10); WHITE BLOOD CELL COUNT 8.6 /CUMM (4.8-10.8)
--- NOTE | 2017-12-02 08:45 | PN- Housestaff ---
Win Parra MD,[facility] 12/02/17 0845: Subjective Follow-up For: Right lower extremity cellulitis Subjective: Patient visited today, was lying in bed comfortably in no acute distress, leg in elevated position, was alert and oriented. No fever or chills, had PT yesterday and showed improvement in activity, still not in baseline and PT suggested home PT,no chest pain, no other events. Mental function improved compared to yesterday Patient agreed to be discharged today, Planned to discharge on lower dose of lasix (considering kidney functino) and oral Keflex with recommendations to follow with PCP for CR follow up. Review of Systems Constitutional: Reports: see HPI. Objective Last 24 Hrs of Vital Signs/I&O Vital Signs Date Time Temp Pulse Resp B/P B/P Pulse O2 O2 Flow FiO2 Mean Ox Delivery Rate 12/02 0918 70 134/68 12/02 0643 98.1 63 20 126/80 97 Room Air 12/01 2213 98.3 59 20 112/68 97 Room Air 12/01 1421 97.6 68 18 116/70 93 Intake & Output 12/02 1600 12/02 0800 12/02 0000 Intake Total Output Total 550 1 Balance -550 -1 Output, Stool 1 Output, Urine 550 Physical Exam General Appearance: Alert, Oriented X3, Cooperative, No Acute Distress Skin: skin changes, erythema on right LE Skin Temp/Moisture Exam: Warm/Dry Sepsis Skin Exam (color): Normal for Ethnicity HEENT: Atraumatic, EOMI, Mucous Membr. moist/pink Cardiovascular: Regular Rate, Normal S1, Normal S2 Lungs: Clear to Auscultation Abdomen: relatively distanded, no tenderness Neurological: Normal Speech, Cranial Nerves 3-12 NL Extremities: bilateral LE edema Current Medications: Current Medications Sig/Clifford Start time Last Medication Dose Route Stop Time Status Admin Calcium/Vitamin D 1 TAB DAILY 11/27 1000 AC 12/02 PO 917 Cephalexin 500 MG BID 11/30 1430 AC 12/02 PO 917 Cyanocobalamin 1,000 MCG DAILY 11/27 1000 AC 12/02 PO 917 Docusate Sodium 100 MG DAILY NEEDED PRN 11/27 2115 AC PO Escitalopram Oxalate 10 MG DAILY 11/27 1000 AC 12/02 PO 917 Ferrous Sulfate 325 MG DAILY 11/27 1000 AC 12/02 PO 917 Furosemide 60 MG DAILY 11/30 1000 AC 12/02 PO 0918 Gabapentin 300 MG AT BEDTIME 11/27 0015 AC 12/01 PO 210 Hydromorphone HCl 2 MG Q8 PRN 11/30 2100 AC 12/02 PO 0559 Magnesium Oxide 400 MG DAILY 11/27 1000 AC 12/02 PO 0918 Morphine Sulfate 2 MG Q6PRN PRN 11/27 2114 AC 11/30 IV 1740 Nadolol 20 MG DAILY 11/27 1000 AC 12/02 PO 0918 Polyethylene Glycol 17 GM DAILY NEEDED PRN 11/27 2114 AC 11/28 PO 0910 Spironolactone 100 MG DAILY 11/27 1000 AC 12/02 PO 0917 Last 24 Hrs of Lab/Alvin Results Last 24 Hrs of Labs/Mics: Laboratory Tests 12/02/17714: Anion Gap 8, Estimated GFR 51 L, BUN/Creatinine Ratio 39.3 H, CBC w Diff NO MAN DIFF REQ, RBC 3.37 L, MCV 100.4 H, MCH 35.0 H, MCHC 34.9, RDW 14.6 H, MPV 8.3, Gran % 68.0, Lymphocytes % 19.7 L, Monocytes % 9.7 H, Eosinophils % 2.3, Basophils % 0.3, Absolute Granulocytes 5.9, Absolute Lymphocytes 1.7, Absolute Monocytes 0.8 H, Absolute Eosinophils 0.2, Absolute Basophils 0 Assessment/Plan Assessment: Patient was a 62-year-old male with a PMH of cirrhosis secondary to alcohol abuse, aortic valve replacement with bovine valve replacement 10 years ago for [place] valve infective endocarditis, thrombocytopenia, iron anemia, 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 The patient had multiple admissions for cellulitis. He had a recent venous ligation bilaterally with Dr. Taylor. Labs are unreamarkable with a white count of 7.8, H&H 11/34, LFT unremarkable except for total bili 2.1. Venous and arterial doppler ruled out clot & underlying vascular disease. UA pending. patient was admitted to floor for management of followin conditions: Recurrent cellulitis: Patient's right lower leg erythema and edema were likely secondary to cellulitis. Ultrasound Doppler showed no DVT and arterial Doppler ruled out underlying vascular disease. Patient had bilateral lower extremity edema secondary to venous insufficiency and this undoubtedly played some role. Most likely explanation is that his chronic wounds allowed entry of bacteria and subsequent infection. Patient was concerned that this infection can spread to his nearby prosthetic knee joint which is susceptible to infection. Blood cultures stayed negative. Patient recieved IV cefazoline initially, with improvement was changed to oral keflex. Extent of cellulitis was daily monitored with outline drawn on admission which showed daily improvement. Vascular consult with Dr. Taylor was not at this time warranted as patient has patent arterial system on doppler. Patient needed to follow up with him outpatient for previous venous ligation. Before discharge patient remained to be afebrile without leukocytosis. Wound care, elevate legs and xeroform on any open wounds. - Patient was given increased dose of lasix to 60mg bid, which was then decreased before discharge to 60 mg daily. Mild anemia H/H stable at 12.9/37.6 (base line ) -cont to monitor SRINIVAS Cr 1.4 (from 1.6), baseline 1.0. patient needed to follow with PCP for following up Cr level and adjust lasix dose. History of cirrhosis secondary to alcohol abuse Patient is on spironolactone and nadolol. We continued medications. Liver function tests were normal except for elevated bilirubin of 2.1. Thrombocytopenia -Platelet count is 249 today. we avoided any anticoags. Patient is full code Regular diet DVT prophylaxis with Alps Problem List: 1. Cellulitis 2. Alcoholic cirrhosis Pain Ratin Pain Location: Right leg Pain Goal: Pain 4 or less Pain Plan: Continue current plan Tomorrow's Labs & Rationales: NA Discharge Plan Discharge Disposition: home Stable for Discharge? Yes Anticipated Discharge (Day): today London,Jadonleonel 12/02/17 1302: Attending MD Review Statement Attending Statement Attending MD Statement: examined this patient, discuss w/resident/PA/CASING SPLITTER, agreed w/resident/PA/CASING SPLITTER, discussed with family, reviewed EMR data (avail), discussed with nursing, discussed with case mgmt, reviewed images, amended to note Attending Assessment/Plan: 62 y/o M with pmh sig for cirrhosis secondary to alcohol abuse, aortic valve replacement with bovine valve replacement 10 years ago for [place] valve infective endocarditis, thrombocytopenia, iron anemia, right knee replacement 3 due to septic arthritis last in 2016, intermittent in right leg cellulitis, peripheral artery disease, hypertension admitted with right lower extremity cellulitis and now found to have acute kidney injury Cr 1.6>>>1.5>>>1.4>>1.4. White blood cell count remains normal. Venous Doppler and arterial Doppler did not show any significant disease. Patient switched to PO abx. negative blood culture. f/u wound consult. Reduced lasix in view of elevated creatinine 2/2 IVVD whisch appears to be stabilising. Monitor creatinine. Patient has some thrombocytopenia therefore he is on ALPS for DVT prophylaxis. FOLLOW UP PCP in 3-5 days of discharge. Wound care center in 1-2 weeks of discharge.
[2017-12-02 09:18] VITALS: BP 134/68
[2017-12-02] MEDS ORDERED: FUROSEMIDE20 M1 PO ×2 (11:01→11:06)
[2017-12-02] MEDS ORDERED: DOCUSATE SODIU100 M3 PO (11:05)
[2017-12-02] MEDS ORDERED: CEPHALEXIN500 M3 PO (11:06)
[2017-12-02] MEDS ORDERED: MIRALAX119 GM PO (11:06)
[2017-12-02] MEDS ORDERED: PROBIOTIC1 EACH PO (11:06)
--- NOTE | 2017-12-02 11:06 | Discharge Summary ---
Visit Information Visit Dates Admission Date: 11/26/17 Discharge Date: 12/02/17 Hospital Course Course Attending Physician: William Callahan MD Primary Care Physician: Ramona BLANKENSHIP,Shaquille Lopez Hospital Course: Patient was a 62-year-old male presented with 2 days of erythema and edema of his right lower leg The patient has multiple admissions for cellulitis. He had a recent venous ligation bilaterally with Dr. Taylor. 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 Venous and arterial doppler ruled out clot & underlying vascular disease. UA pending. Patient was admitted to [facility] floor for management of followin conditions: Recurrent cellulitis: Patient's right lower leg erythema and edema are likely secondary to cellulitis. Ultrasound Doppler showed no DVT and arterial Doppler ruled out underlying vascular disease. Patient does have bilateral lower extremity edema secondary to venous insufficiency and this undoubtedly plays some role. Most likely explanation is that his chronic wounds allowed entry of bacteria and subsequent infection. Blood cultures stayed negative. Patient recieved IV cefazoline initially, with improvement was changed to oral keflex. Extent of cellulitis was daily monitored with outline drawn on admission which showed daily improvement. Patient needed to follow up with him outpatient for previous venous ligation. With improvement of the condition patient was discharged on oral keflex with wound care instructions to elevate legs and xeroform on any open wounds. Patient was given increased dose of lasix to 60mg bid, whcih was then temprorily held due increased Cr. History of cirrhosis secondary to alcohol abuse Patient was on spironolactone and nadolol -continued medications -Liver function tests are normal except for elevated bilirubin of 2.1. Thrombocytopenia -Platelet count is 114 today -Avoid heparin Patient was discharged with recommendation below. Allergies: Coded Allergies: bee venom protein (honey bee) (Severe, SEVERE HIVES 05/06/17) heparin (Severe, TONGUE SWELLED 05/06/17) cat dander (Intermediate, ITCH, WHEEZE, SNEEZE, SWOLLEN EYES, RUNNY NOSE ) Penicillins (CHILDHOOD REACTION PER PT 05/06/17) Uncoded Allergies: BLOOD THINNERS (PER PT MD ROD SAID NO BLOOD THINNERS 05/06/17) Disposition Summary Disposition Principal Diagnosis: Cellulitis Additional Diagnosis: cirrhosis Discharge Disposition: home health services Discharge Instructions General Discharge Information Code Status: Full Code Patient's Diet: Heart healthy diet Patient's Activity: Self-limited Follow-Up Instructions/Appts: Please follow-up with your primary care provider within 3-5 days of discharge and follow up with wound care center in 1-2 weeks of discharge. Please follow-up with vascular surgery service after discharge. Please discuss your blood work with her primary care physician and possibility to get a referral with her stage technician/blood doctor. Please return to emergency if symptoms worsen Medications at Discharge Discharge Medications: Stop taking the following medications: Furosemide (Furosemide) 40 MG TABLET ORAL TWICE DAILY Continue taking these medications: Nadolol (Nadolol) 20 MG TABLET 1 Tablet ORAL DAILY Comments: Last Taken: 12/02/17 Time: 09:18 AM Ferrous Sulfate (Ferrous Sulfate) 325 MG (65 MG IRON) TABLET 1 Tablet ORAL DAILY Comments: Last Taken: 12/02/17 Time: 09:18 AM Spironolactone (Aldactone) 100 MG TABLET 1 Tablet ORAL DAILY Comments: Last Taken: 12/02/17 Time: 09:07 AM Escitalopram Oxalate (Escitalopram Oxalate) 10 MG TABLET 10 Milligram ORAL DAILY Comments: Last Taken: 12/02/17 Time: 09:18 AM Calcium Carbonate/Vitamin D3 (Calcium 500 + D Tablet) 500 MG-400 TABLET 1 Tablet ORAL DAILY Comments: Last Taken: 12/02/17 Time: 9:18 AM Cyanocobalamin (Vitamin B-12) 1,000 MCG TABLET 1 Tablet ORAL DAILY Comments: Last Taken: 12/02/17 Time: 09:18 AM Magnesium Oxide (Magnesium) 500 MG CAPSULE 1 Capsule ORAL DAILY Comments: Last Taken: 12/02/17 Time: 09:18 AM Gabapentin (Neurontin) 300 MG CAPSULE 1 Capsule ORAL TAKE AT BEDTIME Comments: Last Taken:12/01/17 Time:9:05pm Hydromorphone HCl (Hydromorphone HCl) 2 MG TABLET 1 Tablet ORAL DAILY as needed for PAIN Qty = 30 Comments: Last Taken:12/02/17 Time:05:59am Start taking the following new medications: Docusate Sodium (Docusate Sodium) 100 MG CAPSULE 100 Milligram ORAL DAILY NEEDED as needed for CONSTIPATION Qty = 15 Refills = 1 Instructions: . Comments: not given in hospital Polyethylene Glycol 3350 (Miralax) 17 GRAM/DOSE POWDER 17 Gram ORAL DAILY NEEDED as needed for CONSTIPATION Qty = 15 Refills = 1 Instructions: . Comments: Last Taken:11/28/17 Time:09:10am Furosemide (Furosemide) 20 MG TABLET 60 Milligram ORAL DAILY Qty = 30 No Refills Instructions: . Comments: Last Taken:12/02/17 Time:9:18 AM Cephalexin (Cephalexin) 500 MG CAPSULE 500 Milligram ORAL TWICE DAILY Qty = 20 No Refills Instructions: . Comments: Last Taken:12/02/17 Time:09:18am Lactobacillus Acidophilus (Probiotic) 10 BILLION CELL CAPSULE 1 Capsule ORAL THREE TIMES DAILY Qty = 30 No Refills Instructions: . 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 admitted with right lower extremity cellulitis and found to have acute kidney injury Cr 1.6>>>1.5>>>1.4>>1.4. White blood cell count remains normal. Venous Doppler and arterial Doppler did not show any significant disease. Patient switched to PO abx. negative blood culture. f/u wound consult. Reduced lasix in view of elevated creatinine 2/2 IVVD whisch appears to be stabilising. FOLLOW UP PCP in 3-5 days of discharge. Wound care center in 1-2 weeks of discharge.
== END 2017-12-02 14:30 | disposition home health service (06) | DRG 603 ==
LOC: DELPENDDIS → ERH 13:18 → 2NB 23:13 → ERHI 23:13 → ENRESERV 23:20 → 2NB 23:49 → ENPENDDIS 12-01 14:58 → ENTRNSPT 12-02 13:41 → 2NB 12-02 14:30 → CMPTRNSPT 12-02 14:51
PROVIDERS: Physician Assistant; Radiology Vascular & Interventional Radiology; Student in an Organized Health Care Education/Training Program
DX: L03.115 Cellulitis of right lower limb (principal); N17.9 Acute kidney failure, unspecified; D69.6 Thrombocytopenia, unspecified; L97.219 Non-pressure chronic ulcer of right calf with unspecified severity; Z68.41 Body mass index [BMI] 40.0-44.9, adult; I87.2 Venous insufficiency (chronic) (peripheral); K70.30 Alcoholic cirrhosis of liver without ascites; R60.0 Localized edema; D50.9 Iron deficiency anemia, unspecified; Z96.651 Presence of right artificial knee joint; E66.9 Obesity, unspecified; I10 Essential (primary) hypertension; F10.10 Alcohol abuse, uncomplicated; Z95.3 Presence of xenogenic heart valve; G25.81 Restless legs syndrome
CPT/HCPCS: 2NSBP; 36415; 36592; 81003; 82436; 87040; 93005; 93010; 96374; 96375; 97110-GO; 97116-GO; 97161-GP; 97530-GO; J0690; J1200; J1940